=== PATIENT | male | born 1960 | race Caucasian/White ===

== ENCOUNTER → 2017-12-31 | Outpatient (CLI) | payer OTHER ==
--- NOTE | 2017-12-31 11:55 | XR ---
EXAMINATION TYPE: XR shoulder complete BILAT DATE OF EXAM: 12/31/2017 CLINICAL HISTORY: pain COMPARISON: NONE TECHNIQUE: Three views of the left shoulder are obtained. FINDINGS: There is no acute fracture/dislocation evident. The acromioclavicular and glenohumeral maite int spaces appear within normal limits. The visualized ribs are intact and unremarkable. IMPRESSION: 1. There is no acute fracture or dislocation. ICD 10 NO FRACTURE, INITIAL EVALUATION
== END | disposition home or self-care (01) ==
LOC: RADXRMAIN 11:25
PROVIDERS: ATTEND Family Medicine
DX: M25.511 Pain in right shoulder (principal); M25.512 Pain in left shoulder

== ENCOUNTER → 2018-03-23 | Outpatient (CLI) | payer OTHER ==
--- NOTE | 2018-03-23 12:32 | XR ---
EXAMINATION TYPE: XR ankle complete RT DATE OF EXAM: 03/23/2018 COMPARISON: NONE HISTORY: Bruising and pain FINDINGS: Three views of the ankle demonstrate the ankle mortise to be intact and symmetric. The joint spaces are preserved. The osseous structures are intact. Diffuse soft tissue edema. Calcaneal spur noted. IMPRESSION: 1. No definite acute fracture or dislocation, if symptoms persist follow-up study in 7 to 10 days wou ld be suggested. Diffuse soft tissue edema.
== END | disposition home or self-care (01) ==
LOC: RADXRMAIN 11:54
PROVIDERS: ATTEND Family Medicine
DX: M25.571 Pain in right ankle and joints of right foot (principal)

== ENCOUNTER 2018-04-07 14:15 | Emergency (ER) | payer OTHER ==
[2018-04-07 14:35] VITALS: RESP 18
--- NOTE | 2018-04-07 15:00 | ED ---
Extremity Problem HPI - General Chief complaint: Extremity Problem,Nontraumatic Stated complaint: POSS DVT RT FOOT, Hx PE AND DVT Time Seen by Provider: 04/07/18 14:48 Source: patient, RN notes reviewed Mode of arrival: wheelchair Limitations: no limitations - History of Present Illness Initial comments: This is a 58-year-old male with history of DVT syndrome who presents to the emergency department with chief complaint of acute right lower extremity swelling and pain. 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 He states that he is currently taking 20 mg of Xarelto daily. He states that last evening he developed swelling, tenderness and redness to the right foot. Patient states that he is sure that he has a DVT. He denies any chest pain or shortness of breath. Denies any injuries to the right lower extremity. Denies fevers or chills, abdominal pain, nausea or vomiting. - Related Data Home Medications Medication Instructions Recorded Confirmed Omeprazole 40 mg PO AC-BRKFST 09/27/14 04/07/18 Sotalol [Betapace] 80 mg PO BID 09/27/14 04/07/18 metFORMIN HCL [Glucophage] 500 mg PO DAILY 09/27/14 04/07/18 metFORMIN HCL [Glucophage] 1,000 mg PO HS 09/25/16 04/07/18 traMADol HCL [Ultram] 100 mg PO TID 09/25/16 04/07/18 ALPRAZolam [Xanax] 1 mg PO HS 11/10/17 04/07/18 Rivaroxaban [Xarelto] 20 mg PO DAILY 11/10/17 04/07/18 Pregabalin [Lyrica] 150 mg PO BID 04/07/18 04/07/18 Previous Rx's Medication Instructions Recorded Cephalexin [Keflex] 500 mg PO Q12HR #20 cap 04/07/18 Allergies Allergy/AdvReac Type Severity Reaction Status Date / Time bacitracin Allergy Unknown Verified 04/07/18 14:50 [From Neosporin ([id number])] bacitracin zinc Allergy Unknown Verified 04/07/18 14:50 [From Neosporin ([id number])] neomycin sulfate Allergy Unknown Verified 04/07/18 14:50 [From Neosporin ([id number])] polymyxin B Allergy Unknown Verified 04/07/18 14:50 [From Neosporin ([id number])] Review of Systems ROS Statement: Those systems with pertinent positive or pertinent negative responses have been documented in the HPI. ROS Other: All systems not noted in ROS Statement are negative. Past Medical History Past Medical History: Diabetes Mellitus, Deep Vein Thrombosis (DVT), Hyperlipidemia, Hypertension Additional Past Medical History / Comment(s): multiple pulmonary embolisms( 2014 ), pacemaker AICD History of Any Multi-Drug Resistant Organisms: None Reported Past Surgical History: Joint Replacement, Orthopedic Surgery, Pacemaker Additional Past Surgical History / Comment(s): pacemaker(2000),2007, right knee replacement, right ankle surgery Past Anesthesia/Blood Transfusion Reactions: No Reported Reaction Type of Cardiac Device: Permanent Pacemaker, AICD Device Placement Date:: 2000 Past Psychological History: No Psychological Hx Reported Smoking Status: Former smoker Past Alcohol Use History: None Reported Past Drug Use History: None Reported - Past Family History Father Additional Family Medical History / Comment(s): CABG x4 Mother Family Medical History: Cancer Additional Family Medical History / Comment(s): CABG x4, defib pacemaker , blood disorder, General Exam - General Exam Comments Initial Comments: General: Awake and alert, well-developed; in no apparent distress. HEENT: Head atraumatic, normocephalic. Pupils are equal, round and reactive to light. Extraocular movements intact. Oropharynx moist without erythema or exudate. Neck: Supple. Normal ROM. Cardiovascular: Regular rate and rhythm. No murmurs, rubs or gallops. Chest symmetrical. Respiratory: Lungs clear to auscultation bilaterally. No wheezes, rales or rhonchi. Normal respiratory effort with no use of accessory muscles. Musculoskeletal: Normal range of motion of the right lower extremity. There is swelling, erythema and tenderness to the dorsal aspect of the right foot and up into the ankle. No bony point tenderness. Sensation is intact. Pedal pulses are 2+ equal and palpable bilaterally. Mild tenderness on palpation of the right calf. Skin: Joice, warm and dry. Neurological: Alert and oriented x3. CN II-XII grossly intact. Speech is fluent and answers are appropriate. No focal neuro deficits. Psychiatric: Normal mood and affect. No overt signs of depression or anxiety noted. Limitations: no limitations Course Vital Signs 04/07/18 14:32 Temperature 98.2 F Pulse Rate 77 Respiratory 18 Rate Blood Pressure 131/85 O2 Sat by Pulse 98 Oximetry Medical Decision Making - Medical Decision Making This is a 58-year-old male with history of multiple DVTs who presents to the emergency department with chief complaint of right foot swelling, tenderness and redness. Patient states he believes he has a DVT. He rated the takes 20 mg of Xarelto daily. Ultrasound venous Doppler was obtained and revealed no evidence for an acute DVT. X-rays of the right foot and ankle were obtained and reveal no acute abnormalities. On physical examination, there is swelling, erythema, tenderness and warmth to the right foot. Patient will be treated for cellulitis with Keflex. Return parameters were discussed. Patient is to return to the emergency department if any increasing redness, streaking occurs. Vital signs are stable and patient is in no acute distress. He will be discharged home at this time. All questions answered. - Radiology Data Radiology results: report reviewed Ultrasound venous Doppler duplex right lower extremity: Negative for DVT X-ray right foot impression: No acute process. X-ray right ankle impression: There is no acute fracture or dislocation seen. Disposition Clinical Impression: Cellulitis Disposition: HOME SELF-CARE Condition: Good Instructions: Cellulitis (ED) Additional Instructions: Please return to the emergency department if you notice any increase in redness or streaking or if you develop any fevers. Please take medications as prescribed. Please follow up with primary care provider within 1-2 days. Return to emergency department if symptoms should worsen or any concerns arise. Prescriptions: Cephalexin [Keflex] 500 mg PO Q12HR #20 cap Is patient prescribed a controlled substance at d/c from ED?: No Referrals: Slade Arora MD [Primary Care Provider] - 1-2 days Time of Disposition: 17:21
--- NOTE | 2018-04-07 16:16 | US ---
EXAMINATION TYPE: US venous doppler duplex LE RT DATE OF EXAM: 04/07/2018 2:58 PM COMPARISON: US CLINICAL HISTORY: Pain. SIDE PERFORMED: Right TECHNIQUE: The lower extremity deep venous system is examined utilizing real time linear array sonog peg with graded compression, doppler sonography and color-flow sonography. VESSELS IMAGED: External Iliac Vein (EIV) Common Femoral Vein Deep Femoral Vein Greater Saphenous Vein * Femoral Vein Popliteal Vein Small Saphenous Vein * Proximal Calf Veins (* superficial vessels) Grayscale, color doppler, spectral doppler imaging performed of the deep veins of the lower extremity . There is normal flow, compressibility, vascular waveforms. Right Leg: Negative for DVT IMPRESSION: No evidence for DVT.
--- NOTE | 2018-04-07 17:02 | XR ---
EXAMINATION TYPE: XR ankle complete RT DATE OF EXAM: 04/07/2018 COMPARISON: 03/23/2018 HISTORY: Pain TECHNIQUE: Frontal, lateral and oblique images of the right ankle are obtained. COMPARISON: None. FINDINGS: There is no acute fracture/dislocation evident. The joint spaces appear within normal farah its. Lateral soft tissue swelling identified. IMPRESSION: There is no acute fracture or dislocation seen.
--- NOTE | 2018-04-07 17:05 | XR ---
PROCEDURE: XR foot complete RT 3 views DATE AND TIME: 04/07/2018 4:50 PM REFERRING PHYSICIAN: Cinthia Duval CLINICAL INDICATION: PHH, Pain TECHNIQUE: Department protocol. COMPARISON: None FINDINGS: There is no fracture or malalignment. The soft tissues are unremarkable. IMPRESSION: NO ACUTE PROCESS.
[2018-04-07] MEDS ORDERED: CEPHALEXIN 500 MG CAP PO STA (17:19)
[2018-04-07 17:37] VITALS: BP 130/78; PULSE 70; TEMP 98.7
== END 2018-04-07 17:37 | disposition home or self-care (01) ==
LOC: EC 14:15
DX: L03.115 Cellulitis of right lower limb (principal); I10 Essential (primary) hypertension; E11.9 Type 2 diabetes mellitus without complications; Z87.891 Personal history of nicotine dependence; Z79.01 Long term (current) use of anticoagulants; Z79.84 Long term (current) use of oral hypoglycemic drugs; Z79.899 Other long term (current) drug therapy; Z88.1 Allergy status to other antibiotic agents; Z86.718 Personal history of other venous thrombosis and embolism; Z86.711 Personal history of pulmonary embolism; Z96.651 Presence of right artificial knee joint; Z98.890 Other specified postprocedural states
CPT/HCPCS: 99283

== ENCOUNTER → 2020-05-08 | Outpatient (CLI) | payer MEDICARE | END | disposition home or self-care (01) | LOC: LABWHC1 10:45 | PROVIDERS: ATTEND Internal Medicine | DX: R05 Cough (principal); R06.2 Wheezing | CPT/HCPCS: U0003; C9803 ==

== ENCOUNTER 2020-05-17 13:50 | Emergency (ER) | payer MEDICARE ==
[2020-05-17 13:57] VITALS: BP 138/83; PULSE 84; RESP 22; TEMP 98.4
--- NOTE | 2020-05-17 14:14 | ED ---
General Adult HPI - General Chief complaint: Shortness of Breath Stated complaint: cough, shortness of breath, chest pain Time Seen by Provider: 05/17/20 13:58 Source: patient Mode of arrival: ambulatory Limitations: no limitations - History of Present Illness Initial comments: Patient is a 60-year-old male, history of diabetes, hypertension, pacemaker, presenting to emergency Department with complaints of a cough, mild shortness of breath, chest of burning that has been intermittent for the last 3 weeks. Patient states he was tested for Covid last week and that was negative. Patient followed up with his PCP today who recommended going into the ER for a chest x- ray to rule out pneumonia. He states his grandson did come in contact with a household who had a positive Covid case 2 weeks ago. Patient states he has been doing breathing treatments at home which does improve his symptoms. He states he has been coughing up mild phlegm but also has a dry cough at times. He does have a history of PE, he is on eliquis. He denies having fever, chest pains, nausea, vomiting, diarrhea. He states his appetite has been lower the past few days. He has not tried any [id number] medications except for his breathing treatments. He has no further complaints at this time. Upon arrival to the ER, he is afebrile, rest of vitals are normal, 97% on room air. - Related Data Home Medications Medication Instructions Recorded Confirmed Omeprazole 40 mg PO AC-BRKFST 09/27/14 04/07/18 Sotalol [Betapace] 80 mg PO BID 09/27/14 04/07/18 metFORMIN HCL [Glucophage] 500 mg PO DAILY 09/27/14 04/07/18 metFORMIN HCL [Glucophage] 1,000 mg PO HS 09/25/16 04/07/18 traMADol HCL [Ultram] 100 mg PO TID 09/25/16 04/07/18 ALPRAZolam [Xanax] 1 mg PO HS 11/10/17 04/07/18 Rivaroxaban [Xarelto] 20 mg PO DAILY 11/10/17 04/07/18 Pregabalin [Lyrica] 150 mg PO BID 04/07/18 04/07/18 Previous Rx's Medication Instructions Recorded Cephalexin [Keflex] 500 mg PO Q12HR #20 cap 04/07/18 Azithromycin [Zithromax Z-pack] 0 mg PO DIRECTED #1 pack 05/17/20 methylPREDNISolone [Medrol Dose 4 mg PO DIRECTED #1 pack 05/17/20 Pack] Allergies Allergy/AdvReac Type Severity Reaction Status Date / Time bacitracin Allergy Unknown Verified 05/17/20 13:57 [From Neosporin ([id number])] bacitracin zinc Allergy Unknown Verified 05/17/20 13:57 [From Neosporin ([id number])] neomycin sulfate Allergy Unknown Verified 05/17/20 13:57 [From Neosporin ([id number])] polymyxin B Allergy Unknown Verified 05/17/20 13:57 [From Neosporin ([id number])] Review of Systems ROS Statement: Those systems with pertinent positive or pertinent negative responses have been documented in the HPI. ROS Other: All systems not noted in ROS Statement are negative. Past Medical History Past Medical History: Diabetes Mellitus, Deep Vein Thrombosis (DVT), Hyperlipidemia, Hypertension Additional Past Medical History / Comment(s): multiple pulmonary embolisms( 2014), pacemaker AICD History of Any Multi-Drug Resistant Organisms: None Reported Past Surgical History: Joint Replacement, Orthopedic Surgery, Pacemaker Additional Past Surgical History / Comment(s): pacemaker(2000),2007, right knee replacement, right ankle surgery Past Anesthesia/Blood Transfusion Reactions: No Reported Reaction Type of Cardiac Device: Permanent Pacemaker, AICD Device Placement Date:: 2000 Past Psychological History: No Psychological Hx Reported Smoking Status: Former smoker Past Alcohol Use History: None Reported Past Drug Use History: None Reported - Past Family History Father Additional Family Medical History / Comment(s): CABG x4 Mother Family Medical History: Cancer Additional Family Medical History / Comment(s): CABG x4, defib pacemaker , blood disorder, General Exam - General Exam Comments Initial Comments: GENERAL: Patient is well-developed and well-nourished. Patient is nontoxic and in no acute distress. HEAD: Atraumatic, normocephalic. EYES: Pupils equal round and reactive to light, extraocular movements intact, sclera anicteric, conjunctiva are normal. Eyelids were unremarkable. ENT: TMs normal, nares patent, oropharynx clear without exudates. Moist mucous membranes. NECK: Normal range of motion, supple without lymphadenopathy or JVD. LUNGS: Unlabored respirations. Breath sounds clear, mild wheezes present HEART: Regular rate and rhythm without murmurs, rubs or gallops. ABDOMEN: Soft, nontender, normoactive bowel sounds. No guarding, no rebound. No masses appreciated. : Deferred MUSCULOSKELETAL: Normal extremities with adequate strength and normal range of motion, no pitting or edema. No clubbing or cyanosis. NEUROLOGICAL: Cranial nerves II through XII grossly intact. Normal speech, normal gait. PSYCH: Normal mood, normal affect. SKIN: Warm, Dry, normal turgor, no rashes or lesions noted. Limitations: no limitations Course Vital Signs 05/17/20 13:55 Temperature 98.4 F Pulse Rate 84 Respiratory 22 Rate Blood Pressure 138/83 O2 Sat by Pulse 97 Oximetry EKG Findings - EKG Comments: EKG Findings:: Patient does have a pacemaker, normal sinus rhythm, LBBB, ventricular rate 80, MT interval 144, QTC 422. Similar to previous EKG on 11-12-17. Medical Decision Making - Medical Decision Making Patient is 60-year-old male with history of diabetes, hypertension, pacemaker, presenting with a cough intermittent 3 weeks. Vital signs are stable, afebrile. Although documented in nurse's triage patient describing chest tightness, when I asked the patient about this he denies any chest pains but describes it as burning when he is coughing. Exam reveals very mild scattered wheezes, no other acute findings. He did have Covid test last week which was negative. EKG shows no acute changes, chest x-ray shows chronic changes, no acute process. No evidence of pneumonia. I discussed these findings with the patient. Given patient's history, comorbidities, I did recommend a full lab workup including troponin, BNP, possible admission for the chest burning however patient declined this at this time. I will treat the patient for bronchitis with a steroid Dosepak as well as azithromycin. Patient is in agreement with this plan of care. Very strict return parameters were discussed with the patient and he verbalized understanding. He will follow up with his PCP. Case discussed with Dr. Echeverria. Disposition Clinical Impression: Cough, Bronchitis Disposition: HOME SELF-CARE Condition: Stable Instructions (If sedation given, give patient instructions): Acute Bronchitis (ED) Additional Instructions: Please return to the Emergency Department if symptoms worsen or any other concerns. Take both medications as prescribed. Check blood sugar levels as discussed secondary to taking steroids. Follow-up with PCP in 1-3 days. Prescriptions: methylPREDNISolone [Medrol Dose Pack] 4 mg PO DIRECTED #1 pack Azithromycin [Zithromax Z-pack] 0 mg PO DIRECTED #1 pack Is patient prescribed a controlled substance at d/c from ED?: No Referrals: Og Ervin MD [Primary Care Provider] - 1-2 days
--- NOTE | 2020-05-17 14:40 | XR ---
EXAMINATION TYPE: XR chest 2V DATE OF EXAM: 05/17/2020 COMPARISON: Chest x-ray November 11, 2017. HISTORY: Cough for 3 weeks. TECHNIQUE: Frontal and lateral views of the chest are obtained. FINDINGS: Reticular interstitial prominence bilaterally with moderate biapical pleural scarring. Ther e is no suspicious new focal air space opacity, pleural effusion, or pneumothorax seen. The cardiac silhouette size remains within normal limits. Dual lead pacemaker redemonstrated. The osseous struct ures are intact. IMPRESSION: Chronic changes without new suspicious acute pulmonary process.
== END 2020-05-17 15:25 | disposition home or self-care (01) ==
LOC: EC 13:50
DX: J40 Bronchitis, not specified as acute or chronic (principal); I10 Essential (primary) hypertension; E11.9 Type 2 diabetes mellitus without complications; Z79.01 Long term (current) use of anticoagulants; Z79.899 Other long term (current) drug therapy; Z79.84 Long term (current) use of oral hypoglycemic drugs; Z88.1 Allergy status to other antibiotic agents; Z88.8 Allergy status to other drugs, medicaments and biological substances; Z87.891 Personal history of nicotine dependence; Z95.0 Presence of cardiac pacemaker; Z96.651 Presence of right artificial knee joint; Z86.718 Personal history of other venous thrombosis and embolism; Z20.828 Contact with and (suspected) exposure to other viral communicable diseases; Z86.711 Personal history of pulmonary embolism
CPT/HCPCS: 71046; 93005; 99285

== ENCOUNTER 2020-07-22 15:14 | Emergency (ER) | payer MEDICARE ==
[2020-07-22] MEDS ORDERED: PIPERACILLIN-TAZOBACTAM 3.375 GM in SODIUM CHLORIDE 0.9% 100 ML IVPB STA (15:42)
[2020-07-22] MEDS ORDERED: ACETAMINOPHEN TAB 325 MG TAB PO STA (15:43)
[2020-07-22 16:31] LABS: Albumin 4.7 g/dL (3.5-5.0); Calcium 9.7 mg/dL (8.4-10.2); Potassium 4.8 mmol/L (3.5-5.1); Total Bilirubin 1.3 mg/dL (0.2-1.3); Total Protein 8.1 g/dL (6.3-8.2)
[2020-07-22 16:44] LABS: Basophils # (A) 0.1 k/uL (0-0.2); Basophils % (A) 2 %; Eosinophils # (A) 0.1 k/uL (0-0.7); Eosinophils % (A) 2 %; HGB 15.3 gm/dL (13.0-17.5); Lymphocytes % (A) 16 %; MCH 29.6 pg (25.0-35.0); MCHC 33.2 g/dL (31.0-37.0); MCV 89.3 fL (80.0-100.0); Mean Platelet Volume 7.3; Monocytes # (A) 0.9 k/uL (0-1.0); Monocytes % (A) 14 %; Neutrophils # (A) 4.1 k/uL (1.3-7.7); Neutrophils % (A) 63 %; Platelet Count 185 k/uL (150-450); RBC 5.15 m/uL (4.30-5.90); RDW 12.4 % (11.5-15.5); WBC 6.5 k/uL (3.8-10.6)
[2020-07-22 17:29] VITALS: BP 112/78; PULSE 74; RESP 17; TEMP 98.5
--- NOTE | 2020-07-22 18:57 | US ---
EXAMINATION TYPE: US venous doppler duplex LE LT DATE OF EXAM: 07/22/2020 5:55 PM COMPARISON: NONE CLINICAL HISTORY: swelling. cellulitis left leg, patient on blood thinner, history of DVT and PE SIDE PERFORMED: left TECHNIQUE: The lower extremity deep venous system is examined utilizing real time linear array sonog peg with graded compression, doppler sonography and color-flow sonography. VESSELS IMAGED: External Iliac Vein (EIV) Common Femoral Vein Deep Femoral Vein Greater Saphenous Vein * Femoral Vein Popliteal Vein Small Saphenous Vein * Proximal Calf Veins (* superficial vessels) Left Leg: no evidence of DVT IMPRESSION: No sign of deep vein thrombosis in the left leg.
--- NOTE | 2020-07-22 18:59 | ED ---
Skin/Abscess/FB HPI - General Chief complaint: Skin/Abscess/Foreign Body Stated complaint: Infection in left leg Time Seen by Provider: 07/22/20 15:42 Source: patient Mode of arrival: ambulatory Limitations: physical limitation - History of Present Illness Initial comments: 60yo male presenting for cellulitis. patient states he was diagnosed with cellulitis on thursday and prescribed bactrim. he states he had redness and swelling of the left foot. Patietn states it began thursday with itching which is how is always starts he states this has happened nearly every year. Patient denies calf pain or swelling. Denies chest pain SOB. Pt has history of DVT/PE. But states he has been compliant with his xarelto. Patient states that the redness seemed to spread from him left foot to the left anterior knee. he is able to range at the knee and weight bear but the anterior portion is red and tight/itchy. Patient denies known fevers. He has low grade fever on arrival, does not appear toxic and is in no acute distress. Denies known history of MRSA. - Related Data Home Medications Medication Instructions Recorded Confirmed Omeprazole 40 mg PO AC-BRKFST 09/27/14 04/07/18 Sotalol [Betapace] 80 mg PO BID 09/27/14 04/07/18 metFORMIN HCL [Glucophage] 500 mg PO DAILY 09/27/14 04/07/18 metFORMIN HCL [Glucophage] 1,000 mg PO HS 09/25/16 04/07/18 traMADol HCL [Ultram] 100 mg PO TID 09/25/16 04/07/18 ALPRAZolam [Xanax] 1 mg PO HS 11/10/17 04/07/18 Rivaroxaban [Xarelto] 20 mg PO DAILY 11/10/17 04/07/18 Pregabalin [Lyrica] 150 mg PO BID 04/07/18 04/07/18 Previous Rx's Medication Instructions Recorded Cephalexin [Keflex] 500 mg PO Q12HR #20 cap 04/07/18 Azithromycin [Zithromax Z-pack (6 0 mg PO DIRECTED #1 pack 05/17/20 tabs)] methylPREDNISolone [Medrol Dose 4 mg PO DIRECTED #1 pack 05/17/20 Pack] Cephalexin [Keflex] 500 mg PO Q6HR 7 Days #28 cap 07/22/20 Allergies Allergy/AdvReac Type Severity Reaction Status Date / Time bacitracin Allergy Unknown Verified 07/22/20 15:39 [From Neosporin ([id number])] bacitracin zinc Allergy Unknown Verified 07/22/20 15:39 [From Neosporin ([id number])] neomycin sulfate Allergy Unknown Verified 07/22/20 15:39 [From Neosporin ([id number])] polymyxin B Allergy Unknown Verified 07/22/20 15:39 [From Neosporin ([id number])] Review of Systems ROS Statement: Those systems with pertinent positive or pertinent negative responses have been documented in the HPI. ROS Other: All systems not noted in ROS Statement are negative. Past Medical History Past Medical History: Diabetes Mellitus, Deep Vein Thrombosis (DVT), Hyperlipidemia, Hypertension Additional Past Medical History / Comment(s): multiple pulmonary embolisms( 2014), pacemaker AICD History of Any Multi-Drug Resistant Organisms: None Reported Past Surgical History: Joint Replacement, Orthopedic Surgery, Pacemaker Additional Past Surgical History / Comment(s): pacemaker(2000),2007, right knee replacement, right ankle surgery, Past Anesthesia/Blood Transfusion Reactions: No Reported Reaction Type of Cardiac Device: Permanent Pacemaker, AICD Device Placement Date:: 2000 Past Psychological History: No Psychological Hx Reported Smoking Status: Former smoker Past Alcohol Use History: None Reported Past Drug Use History: None Reported - Past Family History Father Additional Family Medical History / Comment(s): CABG x4 Mother Family Medical History: Cancer Additional Family Medical History / Comment(s): CABG x4, defib pacemaker , blood disorder, General Exam - General Exam Comments Initial Comments: General: The patient is awake and alert, in no distress, and does not appear acutely ill. Eye: Pupils are equal, round and reactive to light, extra-ocular movements are intact. No nystagmus. There is normal conjunctiva bilaterally. No signs of icterus. Ears, nose, mouth and throat: There are moist mucous membranes and no oral lesions. Neck: The neck is supple, there is no tenderness or JVD. Cardiovascular: There is a regular rate and rhythm. No murmur, rub or gallop is appreciated. Respiratory: Lungs are clear to auscultation, respirations are non-labored, breath sounds are equal. No wheezes, stridor, rales, or rhonchi. Musculoskeletal: Swelling left foot dorsum. Circular red area with faint xiang rders on the anterior knee, no swelling. pain to touch. Normal ROM, with mild tenderness of the left knee. Can weight bear without difficutly.. Strength 5/5. Sensation intact. DP pulses equal bilaterally 2+. Neurological: A&O x 3. CN II-XII intact, There are no obvious motor or sensory deficits. Coordination appears grossly intact. Speech is normal. Skin: Skin is warm and dry and no rashes or lesions are noted. Psychiatric: Cooperative, appropriate mood & affect, normal judgment. Limitations: physical limitation Course Vital Signs 07/22/20 07/22/20 15:37 17:28 Temperature 100.3 F H 98.5 F Pulse Rate 100 74 Respiratory 18 17 Rate Blood Pressure 141/85 112/78 O2 Sat by Pulse 98 98 Oximetry Medical Decision Making - Medical Decision Making US (-) DVT. WBC WNL. Doesnt appear toxic. Evaluated by attending who recommends discharge with addition of keflex to abx regime and close home monitoring. Patient prefers to go home and trial a new antibiotics vs admission at this time. patient is aware of strict return parameters and was discharged appearing well. - Lab Data Result diagrams: 07/22/20 16:10 07/22/20 16:10 Lab Results 07/22/20 07/22/20 07/22/20 Range/Units 16:10 16:10 16:10 WBC 6.5 (3.8-10.6) k/uL RBC 5.15 (4.30-5.90) m/uL Hgb 15.3 (13.0-17.5) gm/dL Hct 46.0 (39.0-53.0) % MCV 89.3 (80.0-100.0) fL MCH 29.6 (25.0-35.0) pg MCHC 33.2 (31.0-37.0) g/dL RDW 12.4 (11.5-15.5) % Plt Count 185 (150-450) k/uL Neutrophils % 63 % Lymphocytes % 16 % Monocytes % 14 % Eosinophils % 2 % Basophils % 2 % Neutrophils # 4.1 (1.3-7.7) k/uL Lymphocytes # 1.0 (1.0-4.8) k/uL Monocytes # 0.9 (0-1.0) k/uL Eosinophils # 0.1 (0-0.7) k/uL Basophils # 0.1 (0-0.2) k/uL Sodium 133 L (137-145) mmol/L Potassium 4.8 (3.5-5.1) mmol/L Chloride 98 (98-107) mmol/L Carbon Dioxide 25 (22-30) mmol/L Anion Gap 10 mmol/L BUN 11 (9-20) mg/dL Creatinine 1.18 (0.66-1.25) mg/dL Est GFR (CKD-EPI)AfAm 77 (>60 ml/min/1.73 sqM) Est GFR (CKD-EPI)NonAf 66 (>60 ml/min/1.73 sqM) Glucose 141 H (74-99) mg/dL Plasma Lactic Acid Golden 1.1 (0.7-2.0) mmol/L Calcium 9.7 (8.4-10.2) mg/dL Total Bilirubin 1.3 (0.2-1.3) mg/dL AST 27 (17-59) U/L ALT 23 (4-49) U/L Alkaline Phosphatase 83 (38-126) U/L Total Protein 8.1 (6.3-8.2) g/dL Albumin 4.7 (3.5-5.0) g/dL Disposition Clinical Impression: Cellulitis Disposition: HOME SELF-CARE Condition: Good Instructions (If sedation given, give patient instructions): Cellulitis (ED) Additional Instructions: Please use medication as discussed. Please follow-up with family doctor in the next 2 days . . Please return to emergency room if the symptoms increase or worsen or for any other concerns. Prescriptions: Cephalexin [Keflex] 500 mg PO Q6HR 7 Days #28 cap Is patient prescribed a controlled substance at d/c from ED?: No Referrals: Maria Dolores Jaramillo NPC [Primary Care Provider] - 1-2 days Time of Disposition: 18:59
== END 2020-07-22 19:06 | disposition home or self-care (01) ==
LOC: SUPCPDRO 15:14 → EC 15:14
DX: L03.116 Cellulitis of left lower limb (principal); E11.9 Type 2 diabetes mellitus without complications; I26.99 Other pulmonary embolism without acute cor pulmonale; Z79.899 Other long term (current) drug therapy; Z79.84 Long term (current) use of oral hypoglycemic drugs; Z79.891 Long term (current) use of opiate analgesic; Z79.01 Long term (current) use of anticoagulants; Z88.1 Allergy status to other antibiotic agents; Z96.651 Presence of right artificial knee joint; Z87.891 Personal history of nicotine dependence; Z86.718 Personal history of other venous thrombosis and embolism
CPT/HCPCS: 36415; 80053; 83605; 85025; 87040; 93971; 99283; 96365; J2543

== ENCOUNTER 2020-07-23 17:20 | Emergency (ER) | payer MEDICARE ==
[2020-07-23 17:50] VITALS: BP 136/87; PULSE 87; RESP 18; TEMP 98.6
--- NOTE | 2020-07-23 18:35 | ED ---
Recheck HPI - General Chief Complaint: Recheck/Abnormal Lab/Rx Stated Complaint: recheck - cellulitis Time Seen by Provider: 07/23/20 17:58 Source: patient, RN notes reviewed Mode of arrival: ambulatory Limitations: no limitations - History of Present Illness Initial Comments: 60-year-old male present emergency Department for recheck of cellulitis of his left leg. Patient states has greatly improved. Patient states he called for follow-up appointment with his PCP and they're concerned because he states updated that it was still red. They told him that he was recommended to stay in the hospital. He states that is not using the hospitalist that all symptoms are nearly 100% better. Patient denies any fever today. Patient offers no complaints. - Related Data Home Medications Medication Instructions Recorded Confirmed Omeprazole 40 mg PO AC-BRKFST 09/27/14 04/07/18 Sotalol [Betapace] 80 mg PO BID 09/27/14 04/07/18 metFORMIN HCL [Glucophage] 500 mg PO DAILY 09/27/14 04/07/18 metFORMIN HCL [Glucophage] 1,000 mg PO HS 09/25/16 04/07/18 traMADol HCL [Ultram] 100 mg PO TID 09/25/16 04/07/18 ALPRAZolam [Xanax] 1 mg PO HS 11/10/17 04/07/18 Rivaroxaban [Xarelto] 20 mg PO DAILY 11/10/17 04/07/18 Pregabalin [Lyrica] 150 mg PO BID 04/07/18 04/07/18 Previous Rx's Medication Instructions Recorded Cephalexin [Keflex] 500 mg PO Q12HR #20 cap 04/07/18 Azithromycin [Zithromax Z-pack (6 0 mg PO DIRECTED #1 pack 05/17/20 tabs)] methylPREDNISolone [Medrol Dose 4 mg PO DIRECTED #1 pack 05/17/20 Pack] Cephalexin [Keflex] 500 mg PO Q6HR 7 Days #28 cap 07/22/20 Allergies Allergy/AdvReac Type Severity Reaction Status Date / Time bacitracin Allergy Unknown Verified 07/23/20 17:50 [From Neosporin ([id number])] bacitracin zinc Allergy Unknown Verified 07/23/20 17:50 [From Neosporin ([id number])] neomycin sulfate Allergy Unknown Verified 07/23/20 17:50 [From Neosporin ([id number])] polymyxin B Allergy Unknown Verified 07/23/20 17:50 [From Neosporin ([id number])] Review of Systems ROS Statement: Those systems with pertinent positive or pertinent negative responses have been documented in the HPI. ROS Other: All systems not noted in ROS Statement are negative. Past Medical History Past Medical History: Diabetes Mellitus, Deep Vein Thrombosis (DVT), Hyperlipidemia, Hypertension Additional Past Medical History / Comment(s): multiple pulmonary embolisms( 2014), pacemaker AICD History of Any Multi-Drug Resistant Organisms: None Reported Past Surgical History: Joint Replacement, Orthopedic Surgery, Pacemaker Additional Past Surgical History / Comment(s): pacemaker(2000),2007, right knee replacement, right ankle surgery, Past Anesthesia/Blood Transfusion Reactions: No Reported Reaction Type of Cardiac Device: Permanent Pacemaker, AICD Device Placement Date:: 2000 Past Psychological History: No Psychological Hx Reported Smoking Status: Former smoker Past Alcohol Use History: None Reported Past Drug Use History: None Reported - Past Family History Father Additional Family Medical History / Comment(s): CABG x4 Mother Family Medical History: Cancer Additional Family Medical History / Comment(s): CABG x4, defib pacemaker , blood disorder, General Exam Limitations: no limitations General appearance: alert, in no apparent distress Head exam: Present: atraumatic, normocephalic, normal inspection Respiratory exam: Present: normal lung sounds bilaterally. Absent: respiratory distress, wheezes, rales, rhonchi, stridor Cardiovascular Exam: Present: regular rate, normal rhythm, normal heart sounds. Absent: systolic murmur, diastolic murmur, rubs, gallop, clicks Extremities exam: Present: other (Left lower extremity there is minimal erythema to the foot, pulses equal bilaterally. Full range of motion full-strength) Course Vital Signs 07/23/20 17:46 Temperature 98.6 F Pulse Rate 87 Respiratory 18 Rate Blood Pressure 136/87 O2 Sat by Pulse 97 Oximetry Medical Decision Making - Medical Decision Making I did review records from yesterday, labs unremarkable. Patient was provided antibiotics and symptoms are improving. I did discuss the case with his practitioner Maria Dolores Jaramillo, patient may follow-up at his scheduled appointment . Return parameters were discussed. Disposition Clinical Impression: Cellulitis Disposition: HOME SELF-CARE Condition: Stable Instructions (If sedation given, give patient instructions): Cellulitis (ED) Additional Instructions: Please return to the Emergency Department if symptoms worsen or any other concerns. Is patient prescribed a controlled substance at d/c from ED?: No Referrals: None,Stated [Primary Care Provider] - 1-2 days Time of Disposition: 18:35
== END 2020-07-23 18:54 | disposition home or self-care (01) ==
LOC: EC 17:20
DX: L03.116 Cellulitis of left lower limb (principal); E11.9 Type 2 diabetes mellitus without complications; I26.99 Other pulmonary embolism without acute cor pulmonale; Z79.01 Long term (current) use of anticoagulants; Z79.84 Long term (current) use of oral hypoglycemic drugs; Z79.899 Other long term (current) drug therapy; Z88.1 Allergy status to other antibiotic agents; Z87.891 Personal history of nicotine dependence; Z86.718 Personal history of other venous thrombosis and embolism; Z96.651 Presence of right artificial knee joint
CPT/HCPCS: 99282

== ENCOUNTER → 2021-03-21 | Outpatient (CLI) | payer MEDICARE ==
--- NOTE | 2021-03-21 10:20 | XR ---
EXAMINATION TYPE: XR chest 2V DATE OF EXAM: 03/21/2021 COMPARISON: 05/17/2020 INDICATION: Chest pain TECHNIQUE: Single frontal view of the chest is obtained. FINDINGS: The heart size is normal. The pulmonary vasculature is normal. The lungs are clear. Electronic device overlies left chest. IMPRESSION: 1. No acute pulmonary process.
[2021-03-21 11:10] LABS: Basophils % (A) 0 %; Eosinophils # (A) 0.3 k/uL (0-0.7); Eosinophils % (A) 3 %; HCT 40.2 % (39.0-53.0); HGB 13.6 gm/dL (13.0-17.5); Lymphocytes # (A) 2.3 k/uL (1.0-4.8); Lymphocytes % (A) 28 %; MCHC 33.9 g/dL (31.0-37.0); MCV 91.4 fL (80.0-100.0); Mean Platelet Volume 7.3; Monocytes # (A) 0.5 k/uL (0-1.0); Monocytes % (A) 6 %; Neutrophils # (A) 4.9 k/uL (1.3-7.7); Neutrophils % (A) 60 %; Platelet Count 182 k/uL (150-450); RDW 13.4 % (11.5-15.5); WBC 8.2 k/uL (3.8-10.6)
[2021-03-21 13:44] LABS: Erythrocyte Sedimentation Rate 6 mm/hr (0-15)
[2021-03-21 18:33] LABS: Chol/HDL Ratio 3.34; Cholesterol 127 mg/dL (0-200); LDL Cholesterol,Calculated 66.8 mg/dL (0.0-131.0)
[2021-03-21 18:40] LABS: Prostate Specific Antigen 1.5 ng/mL (0.0-4.5)
[2021-03-22 07:29] LABS: Glucose 112; Sodium 138
[2021-03-22 07:30] LABS: Anion Gap 9.3; Carbon Dioxide 23.7; Chloride 105; Potassium 4.2
[2021-03-22 07:32] LABS: AST 25; Total Bilirubin 0.6; Total Protein 6.6
[2021-03-22 07:33] LABS: ALT 27; Alkaline Phosphatase 80; Non-African American GFR(CKD) >90
[2021-03-22 07:34] LABS: African American GFR (CKD) >90
== END | disposition home or self-care (01) ==
LOC: RADXRMAIN 09:22
PROVIDERS: ATTEND Family Medicine
DX: R07.9 Chest pain, unspecified (principal)
CPT/HCPCS: 71046; 80053; 80061; 84153; 84443; 85025; 85652

== ENCOUNTER → 2021-04-02 | Outpatient (CLI) | payer MEDICARE ==
[2021-04-02 07:28] LABS: African American GFR (CKD) >90 (>60 ml/min/1.73 sqM); Blood Urea Nitrogen 10 mg/dL (9-20); Non-African American GFR(CKD) >90 (>60 ml/min/1.73 sqM)
--- NOTE | 2021-04-02 08:15 | CT ---
EXAMINATION TYPE: CT chest w con DATE OF EXAM: 04/02/2021 COMPARISON: None HISTORY: Chest pains, a fib CT DLP: 335.6 mGycm Automated exposure control for dose reduction was used. CONTRAST: CT scan of the chest is performed with IV Contrast, patient injected with 100 mL of Isovue 300. FINDINGS: LUNGS: Upper lobe emphysematous changes noted. The lungs are grossly clear, there is no concerning pa renchymal mass or nodule identified. There is no pleural effusion or pneumothorax seen. The trache obronchial tree is patent. MEDIASTINUM: There are no greater than 1 cm hilar or mediastinal lymph nodes. No pericardial effusi on is seen. Thoracic aorta is of normal caliber. The heart is not enlarged. UPPER ABDOMEN: Nonspecific left adrenal nodule measures 2 cm and could reflect adenoma. OTHER: No additional significant abnormality is seen. IMPRESSION: 1. Upper lobe emphysematous changes. 2. Nonspecific left adrenal nodule.
== END | disposition home or self-care (01) ==
LOC: RADCTMAIN 06:51
PROVIDERS: ATTEND Family Medicine
DX: J43.9 Emphysema, unspecified (principal); I48.91 Unspecified atrial fibrillation
CPT/HCPCS: 82565; 84520; 71260; 36415; Q9967

== ENCOUNTER → 2021-04-30 | Outpatient (CLI) | payer MEDICARE ==
[2021-04-30 15:02] LABS: Basophils # (A) 0.05 X 10*3/uL (0.00-0.10); Basophils % (A) 0.5 %; Eosinophils # (A) 0.15 X 10*3/uL (0.04-0.35); Eosinophils % (A) 1.4 %; HCT 40.5 % (39.6-50.0); HGB 13.6 g/dL (13.0-17.0); Lymphocytes # (A) 3.33 X 10*3/uL (0.90-5.00); MCH 31.1 pg (27.0-32.0); MCHC 33.6 g/dL (32.0-37.0); MCV 92.7 fL (80.0-97.0); Mean Platelet Volume 10.4 fL (9.5-12.2); Monocytes % (A) 8.6 %; Neutrophils # (A) 5.94 X 10*3/uL (1.80-7.70); Neutrophils % (A) 57.1 %; Platelet Count 193 X 10*3/uL (140-440); RBC 4.37 X 10*6/uL (4.40-5.60); RDW 13.3 % (11.5-14.5); WBC 10.41 X 10*3/uL (4.50-10.00)
[2021-04-30 16:15] LABS: Appearance,Urine Clear (Clear); Bilirubin,Urine Negative (Negative); Blood,Urine Negative (Negative); Color,Urine Yellow; Glucose,Urine (UA) Negative (Negative); Ketones,Urine Negative (Negative); Leukocyte Esterase,Urine Negative (Negative); Nitrite,Urine Negative (Negative); Protein,Urine Negative (Negative); Specific Gravity,Urine 1.015 (1.001-1.035); Urobilinogen,Urine <2.0 mg/dL (<2.0)
[2021-04-30 19:44] LABS: Albumin 4.1 g/dL (3.80-4.90); Albumin/Globulin Ratio 2.05 (1.60-3.17); Anion Gap 6.1 mmol/L (4.00-12.00); BUN/Creat Ratio 17.5 Ratio (12.00-20.00); Calcium 9.2 mg/dL (8.7-10.3); Carbon Dioxide 26.9 mmol/L (21.6-31.8); Chol/HDL Ratio 2.9; LDL Cholesterol,Calculated 53.4 mg/dL (0.0-131.0); Non-African American GFR(CKD) 95.7 (60.0-200.0); Potassium 4.5 mmol/L (3.5-5.5); Total Bilirubin 0.5 mg/dL (0.3-1.2); Total Protein 6.1 g/dL (6.2-8.2); VLDL Calculation 22.6 mg/dL (5.00-40.00)
[2021-04-30 19:53] LABS: Prostate Specific Antigen 0.8 ng/mL (0.0-4.5)
[2021-05-01 16:47] LABS: Microalbumin Creatinine Ratio <30 mg/g Creat (0-30); Urine Creatinine 86.6 mg/dL
== END | disposition home or self-care (01) ==
LOC: LABWHC1 09:16
PROVIDERS: ATTEND Family Medicine
DX: E11.9 Type 2 diabetes mellitus without complications (principal); N39.0 Urinary tract infection, site not specified; R97.20 Elevated prostate specific antigen [PSA]
CPT/HCPCS: 36415; 80053; 80061; 81003; 82043; 82570; 84153; 85025

== ENCOUNTER → 2021-05-01 | Outpatient (CLI) | payer MEDICARE ==
--- NOTE | 2021-05-02 07:47 | CT ---
EXAMINATION TYPE: CT abdomen pelvis wo con DATE OF EXAM: 05/01/2021 COMPARISON: None HISTORY: Abdominal/pelvic pain, hx LT adrenal node CT DLP: 406.80 mGycm Examination of the solid and hollow viscera is limited given the lack of contrast. FINDINGS: LUNG BASES: No evidence for nodule. No evidence for infiltrate. LIVER/GB: Small gallstone identified at the neck of the gallbladder. No space-occupying hepatic lesio n. PANCREAS: No pancreatic mass identified. No inflammatory process seen. SPLEEN: No evidence for splenomegaly. No intrasplenic lesions seen. ADRENALS: Left adrenal nodule which contains internal fat measures 2.3 cm and likely reflects an manpreet idalmis. Right adrenal gland is unremarkable. No evidence for thickening. KIDNEYS: No evidence for renal mass. No nephrolithiasis. No hydronephrosis. BOWEL: Appendix has a normal appearance. No evidence of bowel obstruction. No inflammatory process. Lymph nodes: No evidence for adenopathy greater than 1 cm. Abdominal aorta: Atheromatous changes seen. No evidence for aneurysm. Genital organs: No significant abnormality. Other: Multilevel degenerative disc disease and bar spine with spondylosis. IMPRESSION: 1.Left adrenal nodule which contains internal fat measures 2.3 cm and likely reflects an adenoma. 2.Small gallstone identified at the neck of the gallbladder.
== END | disposition home or self-care (01) ==
LOC: RADCTMAIN 17:20
PROVIDERS: ATTEND Family Medicine
DX: K80.20 Calculus of gallbladder without cholecystitis without obstruction (principal); E27.8 Other specified disorders of adrenal gland
CPT/HCPCS: 74176

== ENCOUNTER 2021-06-04 06:31 | Day surgery (SDC) | payer MEDICARE ==
[2021-06-04] MEDS ORDERED: SODIUM CHLORIDE 0.9% 1,000 ML IV SCH ×2 (06:46→08:30)
[2021-06-04 07:02] VITALS: RESP 18; TEMP 98.1
[2021-06-04 07:04] LABS: Glucose,Whole Blood 85 mg/dL (75-99)
[2021-06-04] MEDS ORDERED: IOPAMIDOL-370 50ML BTL INJ ONE (07:26)
--- NOTE | 2021-06-04 08:22 | P.PCN ---
Date of Procedure: 06/04/21 Preoperative Diagnosis: Pacemaker lead malfunction with muscle stimulation and increasing impedance with the noise on the atrial lead. Suspect the lead fracture Postoperative Diagnosis: No obvious fracture noted on fluoroscopy. Patent axillary and subclavian veins Procedure(s) Performed: Fluoroscopy study of the leads and axillary and subclavian venography Description of Procedure: Patient was brought to the lab in a fasting state. He was prepped and draped in the usual fashion. IV started in the left arm. Venography was performed with 10 mL of contrast. Fluoroscopy views of these was obtained in different angles. Patient tolerated the procedure well. Final impression: #1. Patent axillary and subclavian vein. #2. No obvious fractures noted on the leads under fluoroscopy
[2021-06-04 08:32] VITALS: PULSE 64
[2021-06-04 08:33] VITALS: BP 110/70
== END 2021-06-04 08:37 | disposition home or self-care (01) ==
LOC: CATHEP 06:31
PROVIDERS: ATTEND Internal Medicine Cardiovascular Disease
DX: T82.110A Breakdown (mechanical) of cardiac electrode, initial encounter (principal)
CPT/HCPCS: 36005; 75820; Q9967

== ENCOUNTER 2021-07-10 20:29 | Observation (INO) | payer MEDICARE ==
[2021-07-10 21:07] LABS: Basophils # (A) 0.1 k/uL (0-0.2); Basophils % (A) 1 %; Eosinophils # (A) 0.2 k/uL (0-0.7); Eosinophils % (A) 2 %; HCT 39.2 % (39.0-53.0); HGB 13.1 gm/dL (13.0-17.5); Lymphocytes # (A) 2.8 k/uL (1.0-4.8); Lymphocytes % (A) 33 %; MCHC 33.5 g/dL (31.0-37.0); MCV 92.6 fL (80.0-100.0); Mean Platelet Volume 7.6; Monocytes # (A) 0.5 k/uL (0-1.0); Monocytes % (A) 6 %; Neutrophils # (A) 4.5 k/uL (1.3-7.7); Neutrophils % (A) 54 %; Platelet Count 170 k/uL (150-450); RBC 4.24 m/uL (4.30-5.90); RDW 12.1 % (11.5-15.5); WBC 8.4 k/uL (3.8-10.6)
--- NOTE | 2021-07-10 21:14 | CT ---
EXAMINATION TYPE: CT brain bridgett amor DATE OF EXAM: 07/10/2021 COMPARISON: None HISTORY: Seizure, AMS, on anticoagulation, bleeding from back of head CT DLP: 1531.1 mGycm Automated exposure control for dose reduction was used. Ventricles have normal size. There is no mass effect nor midline shift. There is no sign of intracran ial hemorrhage. Calvarium is intact. Skull base is intact. There is normal aeration of the mastoid si nuses. There is mucosal thickening left maxillary sinus. The cervical vertebra have normal alignment. There is degenerative disc space narrowing at levels fro m C4 to C7 with spurring of the endplates. There is hypertrophic mild cervical facet arthropathy. The re is no compression fracture. Prevertebral soft tissues are intact. IMPRESSION: Spondylotic multilevel changes in the cervical spine. No fracture. Negative CT scan of the brain. Emphysema noted at the lung apices with pulmonary fibrotic changes.
[2021-07-10 21:15] LABS: ALT 17 U/L (4-49); AST 23 U/L (17-59); African American GFR (CKD) >90 (>60 ml/min/1.73 sqM); Albumin 3.6 g/dL (3.5-5.0); Alcohol <10 mg/dL; Alkaline Phosphatase 57 U/L (38-126); Anion Gap 9 mmol/L; Blood Urea Nitrogen 8 mg/dL (9-20); Calcium 9.2 mg/dL (8.4-10.2); Carbon Dioxide 22 mmol/L (22-30); Chloride 105 mmol/L (98-107); Creatine Kinase 161 U/L (55-170); Glucose 141 mg/dL (74-99); Magnesium 1.5 mg/dL (1.6-2.3); Non-African American GFR(CKD) >90 (>60 ml/min/1.73 sqM); Potassium 3.7 mmol/L (3.5-5.1); Sodium 136 mmol/L (137-145); Total Bilirubin 0.8 mg/dL (0.2-1.3); Total Protein 6.1 g/dL (6.3-8.2)
[2021-07-10 21:17] LABS: Partial Thromboplastin Time 22.8 sec (22.0-30.0); Prothrombin Time 11.1 sec (9.0-12.0)
[2021-07-10] MEDS ORDERED: HYDROmorphone 1 MG/ML 1 ML SYRINGE IVP STA (22:03)
[2021-07-10] MEDS ORDERED: ONDANSETRON 4 MG/2 ML VIAL IVP STA (22:03)
[2021-07-10] MEDS ORDERED: levETIRAcetam IV 500 MG in SODIUM CHLORIDE 0.9% 100 ML IVPB STA (22:30)
[2021-07-10] MEDS ORDERED: ACETAMINOPHEN TAB 325 MG TAB PO PRN (22:38)
[2021-07-10] MEDS ORDERED: NALOXONE 0.4 MG/ML 1 ML VIAL IV PRN (22:38)
--- NOTE | 2021-07-10 22:38 | ED ---
Seizure HPI - General Chief Complaint: Seizure Stated Complaint: fa seizure Time Seen by Provider: 07/10/21 20:30 Source: patient, EMS Mode of arrival: EMS - History of Present Illness Initial Comments: 61-year-old male past medical history of A. fib on Eliquis, diabetes, PE who presents emergency department after he had a new onset seizure. The patient was shopping at [employer] when bystanders witnessed him have a seizure. They report that he was walking, stiffened up and felt straight back onto his head. Seizure was tonic-clonic and lasted for approximately 5 minutes. EMS was called and upon their arrival seizure activity had stopped. He was postictal. There was a scalp laceration noted. He does have a history of A. fib and PE on Eliquis. HE was combative however improved on the way into the hospital. He denies previous seizure history. No alcohol use or withdrawal. States that previous to the event he felt confused inside of the store and was having difficulty tracking with his eyes. Patient complains of a headache without visual changes. Denies any neck pain however arrives in a c-collar. Denies chest pain or shortness of breath. Patient does have a pacemaker and ICD - [employer]. No abdominal pain. No other alleviating, precipitating or modifying factors - Related Data Home Medications Medication Instructions Recorded Confirmed Omeprazole 40 mg PO DAILY 09/27/14 07/10/21 Sotalol [Betapace] 80 mg PO BID 09/27/14 07/10/21 traMADol HCL [Ultram] 100 mg PO QID PRN 09/25/16 07/10/21 ALPRAZolam [Xanax] 1 mg PO HS 11/10/17 07/10/21 Apixaban [Eliquis] 5 mg PO BID 05/30/21 07/10/21 Atorvastatin [Lipitor] 40 mg PO HS 05/30/21 07/10/21 Dulaglutide [Trulicity] 0.75 mg SQ MARTINEZ 05/30/21 07/10/21 lisinopriL 10 mg PO DAILY 05/30/21 07/10/21 Umeclidinium [place] [Incruse 1 puff INHALATION RT-DAILY 07/10/21 07/10/21 Ellipta] Allergies Allergy/AdvReac Type Severity Reaction Status Date / Time bacitracin Allergy Unknown Verified 07/10/21 22:56 [From Neosporin ([id number])] bacitracin zinc Allergy Unknown Verified 07/10/21 22:56 [From Neosporin ([id number])] neomycin sulfate Allergy Unknown Verified 07/10/21 22:56 [From Neosporin ([id number])] polymyxin B Allergy Unknown Verified 07/10/21 22:56 [From Neosporin ([id number])] Review of Systems ROS Statement: Those systems with pertinent positive or pertinent negative responses have been documented in the HPI. ROS Other: All systems not noted in ROS Statement are negative. Past Medical History Past Medical History: Atrial Fibrillation, COPD, Diabetes Mellitus, Deep Vein Thrombosis (DVT), GERD/Reflux, Hyperlipidemia, Hypertension, Pulmonary Embolus (PE) Additional Past Medical History / Comment(s): Hx gibson's esophagus. Hx Cellulitis in compa feet. Multiple pulmonary embolisms (2014), pacemaker dependent. Emphysema. History of Any Multi-Drug Resistant Organisms: None Reported Past Surgical History: Cardiac Ablation, Joint Replacement, Orthopedic Surgery, Pacemaker Additional Past Surgical History / Comment(s): pacemaker(2000), 2006; pacemaker battery replaced 2017. Rt knee replacement, right ankle surgery, colonoscopy, EGD. Fluoroscopy leads 06/04/21 Past Anesthesia/Blood Transfusion Reactions: No Reported Reaction Type of Cardiac Device: Permanent Pacemaker Device Placement Date:: 2000 Past Psychological History: No Psychological Hx Reported Smoking Status: Former smoker - Past Family History Father Additional Family Medical History / Comment(s): CABG x4 Mother Family Medical History: Cancer Additional Family Medical History / Comment(s): CABG x4, defib pacemaker , blood disorder, General Exam General appearance: alert, other (confused) Head exam: Present: normocephalic, other (large stellate laceration posterior scalp - 12.0 x 8.0 cm) Eye exam: Present: normal appearance, PERRL, EOMI. Absent: scleral icterus, conjunctival injection, periorbital swelling ENT exam: Present: normal exam, mucous membranes moist Neck exam: Present: normal inspection. Absent: tenderness, meningismus, lymphadenopathy Respiratory exam: Present: normal lung sounds bilaterally. Absent: respiratory distress, wheezes, rales, rhonchi, stridor Cardiovascular Exam: Present: normal rhythm, tachycardia, normal heart sounds. Absent: systolic murmur, diastolic murmur, rubs, gallop, clicks GI/Abdominal exam: Present: soft, normal bowel sounds. Absent: distended, tenderness, guarding, rebound, rigid Extremities exam: Present: normal inspection, full ROM, normal capillary refill. Absent: tenderness, pedal edema, joint swelling, calf tenderness Back exam: Present: normal inspection Neurological exam: Present: alert, oriented X3, CN II-XII intact Psychiatric exam: Present: normal affect, normal mood Skin exam: Present: warm, dry, intact, normal color. Absent: rash Course Vital Signs 07/10/21 07/10/21 07/10/21 20:30 20:38 21:01 Temperature 97.6 F Pulse Rate 109 H 92 91 Pulse Rate [ Left Pulse Oximetery] Respiratory 20 20 20 Rate Blood Pressure 145/81 132/83 130/78 Blood Pressure [Left Arm] O2 Sat by Pulse 97 98 97 Oximetry 07/10/21 07/10/21 07/10/21 22:00 22:30 23:03 Temperature Pulse Rate 67 72 72 Pulse Rate [ Left Pulse Oximetery] Respiratory 22 20 20 Rate Blood Pressure 139/96 137/82 125/75 Blood Pressure [Left Arm] O2 Sat by Pulse 97 97 98 Oximetry 07/11/21 07/11/21 07/11/21 00:00 02:51 04:13 Temperature 97.9 F Pulse Rate 69 74 71 Pulse Rate [ Left Pulse Oximetery] Respiratory 20 20 18 Rate Blood Pressure 143/86 109/70 111/70 Blood Pressure [Left Arm] O2 Sat by Pulse 98 100 99 Oximetry 07/11/21 07/11/21 07/11/21 09:06 10:38 10:45 Temperature Pulse Rate 84 81 Pulse Rate [ 99 Left Pulse Oximetery] Respiratory 16 16 16 Rate Blood Pressure Blood Pressure 103/61 [Left Arm] O2 Sat by Pulse 92 L Oximetry 07/11/21 07/11/21 07/11/21 12:29 15:43 15:50 Temperature 98.3 F Pulse Rate 99 100 Pulse Rate [ 75 Left Pulse Oximetery] Respiratory 16 Rate Blood Pressure Blood Pressure 109/66 [Left Arm] O2 Sat by Pulse 96 Oximetry Procedures - Laceration Laceration #1 Consent Obtained: verbal consent Indication: laceration Site: scalp Size (cm): 12 Description: stellate Depth: simple, single layer Pre-repair: wound explored, irrigated extensively Number of Sutures: 6 (magnolia) Patient Tolerated Procedure: well Additional Comments: cental portion of wound left open due to crush injury of the central tissue Medical Decision Making - Medical Decision Making Upon arrival patient is placed in a trauma bay 4. A thorough history and physical exam is performed. Patient does arrive confused. States he does not remember driving to [employer] or being in the store. IV is established. Patient is immediately sent over for CT of his brain which failed to demonstrate any acute intracranial process. He is return to the trauma bay. IV is established and laboratory studies are conducted. Patient's laceration is partially closed using 6 magnolia however due to the raggedness of the skin edges the central portion of the laceration is unable to be repaired. Patient is given 1 mg of Dilaudid for pain 4 milligrams of Zofran for nausea. Laboratory studies. Lactic acid elevated at 2.8. Patient's c-collar is removed. I did recommend admission for neurology consultation for new onset seizure for which he did agree to. I did interrogate the patient's pacemaker. He does begin to become more clear on the events of the evening. 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 I spoke with Dr. Arora who agreed to admit the patient. Dr. Jarvis placed on consult. Currently awaiting the interrogation of the patient's device. He does have some vertiginous symptoms and does is given a dose of meclizine. I also started the patient on 500 mg Keppra. He remained in stable condition awaiting a bed - Lab Data Result diagrams: 07/11/21 05:31 07/11/21 05:31 Lab Results 07/10/21 07/10/21 07/10/21 Range/Units 20:52 20:52 20:52 WBC 8.4 (3.8-10.6) k/uL RBC 4.24 L (4.30-5.90) m/uL Hgb 13.1 (13.0-17.5) gm/dL Hct 39.2 (39.0-53.0) % MCV 92.6 (80.0-100.0) fL MCH 31.0 (25.0-35.0) pg MCHC 33.5 (31.0-37.0) g/dL RDW 12.1 (11.5-15.5) % Plt Count 170 (150-450) k/uL MPV 7.6 Neutrophils % 54 % Lymphocytes % 33 % Monocytes % 6 % Eosinophils % 2 % Basophils % 1 % Neutrophils # 4.5 (1.3-7.7) k/uL Lymphocytes # 2.8 (1.0-4.8) k/uL Monocytes # 0.5 (0-1.0) k/uL Eosinophils # 0.2 (0-0.7) k/uL Basophils # 0.1 (0-0.2) k/uL PT (9.0-12.0) sec INR (<1.2) APTT (22.0-30.0) sec Sodium 136 L (137-145) mmol/L Potassium 3.7 (3.5-5.1) mmol/L Chloride 105 (98-107) mmol/L Carbon Dioxide 22 (22-30) mmol/L Anion Gap 9 mmol/L BUN 8 L (9-20) mg/dL Creatinine 0.83 (0.66-1.25) mg/dL Est GFR (CKD-EPI)AfAm >90 (>60 ml/min/1.73 sqM) Est GFR (CKD-EPI)NonAf >90 (>60 ml/min/1.73 sqM) Glucose 141 H (74-99) mg/dL Lactic Ac Sepsis Rflx Plasma Lactic Acid Golden 2.8 H* (0.7-2.0) mmol/L Calcium 9.2 (8.4-10.2) mg/dL Magnesium 1.5 L (1.6-2.3) mg/dL Total Bilirubin 0.8 (0.2-1.3) mg/dL AST 23 (17-59) U/L ALT 17 (4-49) U/L Alkaline Phosphatase 57 (38-126) U/L Creatine Kinase 161 (55-170) U/L Troponin I (0.000-0.034) ng/mL Total Protein 6.1 L (6.3-8.2) g/dL Albumin 3.6 (3.5-5.0) g/dL Serum Alcohol <10 mg/dL 07/10/21 07/10/21 07/10/21 Range/Units 20:52 20:52 21:32 WBC (3.8-10.6) k/uL RBC (4.30-5.90) m/uL Hgb (13.0-17.5) gm/dL Hct (39.0-53.0) % MCV (80.0-100.0) fL MCH (25.0-35.0) pg MCHC (31.0-37.0) g/dL RDW (11.5-15.5) % Plt Count (150-450) k/uL MPV Neutrophils % % Lymphocytes % % Monocytes % % Eosinophils % % Basophils % % Neutrophils # (1.3-7.7) k/uL Lymphocytes # (1.0-4.8) k/uL Monocytes # (0-1.0) k/uL Eosinophils # (0-0.7) k/uL Basophils # (0-0.2) k/uL PT 11.1 (9.0-12.0) sec INR 1.0 (<1.2) APTT 22.8 (22.0-30.0) sec Sodium (137-145) mmol/L Potassium (3.5-5.1) mmol/L Chloride (98-107) mmol/L Carbon Dioxide (22-30) mmol/L Anion Gap mmol/L BUN (9-20) mg/dL Creatinine (0.66-1.25) mg/dL Est GFR (CKD-EPI)AfAm (>60 ml/min/1.73 sqM) Est GFR (CKD-EPI)NonAf (>60 ml/min/1.73 sqM) Glucose (74-99) mg/dL Lactic Ac Sepsis Rflx Y Plasma Lactic Acid Golden (0.7-2.0) mmol/L Calcium (8.4-10.2) mg/dL Magnesium (1.6-2.3) mg/dL Total Bilirubin (0.2-1.3) mg/dL AST (17-59) U/L ALT (4-49) U/L Alkaline Phosphatase (38-126) U/L Creatine Kinase (55-170) U/L Troponin I <0.012 (0.000-0.034) ng/mL Total Protein (6.3-8.2) g/dL Albumin (3.5-5.0) g/dL Serum Alcohol mg/dL - EKG Data EKG Comments: EKG demonstrates a ventricularly paced rhythm with a rate of 105. QRS 176. QTC of 584. No acute ST segment elevations or depressions. Pacemaker captures appropriately. Disposition Clinical Impression: New onset seizure, Scalp laceration, Concussion, Lactic acidosis Disposition: ADMITTED IP TO THIS HOSP Condition: Stable Is patient prescribed a controlled substance at d/c from ED?: No Decision to Admit Reason: Admit from EC Decision Date: 07/10/21 Decision Time: 22:38
[2021-07-10] MEDS ORDERED: MECLIZINE 12.5 MG TAB PO STA (23:35)
[2021-07-11] MEDS: HYDROmorphone 1 MG/ML 1 ML SYRINGE IVP PRN ×5 (00:13→19:18)
[2021-07-11] MEDS ORDERED: traMADol 50 MG TAB PO PRN (00:30)
[2021-07-11] MEDS ORDERED: MAGNESIUM SULFATE-D5W PMX 1 GM in DEXTROSE/WATER 1 100ML.BAG IVPB ONE (00:33)
[2021-07-11] MEDS: ONDANSETRON 4 MG/2 ML VIAL IVP PRN ×2 (04:12→12:28)
[2021-07-11 06:17] LABS: Basophils % (A) 0 %; Eosinophils % (A) 0 %; HCT 36.5 % (39.0-53.0); HGB 12.7 gm/dL (13.0-17.5); Lymphocytes # (A) 1.6 k/uL (1.0-4.8); Lymphocytes % (A) 16 %; MCH 31.6 pg (25.0-35.0); MCHC 34.9 g/dL (31.0-37.0); MCV 90.6 fL (80.0-100.0); Mean Platelet Volume 7.5; Monocytes # (A) 0.6 k/uL (0-1.0); Monocytes % (A) 6 %; Neutrophils # (A) 7.1 k/uL (1.3-7.7); Neutrophils % (A) 74 %; Platelet Count 157 k/uL (150-450); RBC 4.03 m/uL (4.30-5.90); RDW 12.7 % (11.5-15.5); WBC 9.5 k/uL (3.8-10.6)
[2021-07-11 08:08] LABS: African American GFR (CKD) >90 (>60 ml/min/1.73 sqM); Anion Gap 8 mmol/L; Blood Urea Nitrogen 9 mg/dL (9-20); Calcium 9.3 mg/dL (8.4-10.2); Carbon Dioxide 25 mmol/L (22-30); Chloride 104 mmol/L (98-107); Glucose 130 mg/dL (74-99); Non-African American GFR(CKD) >90 (>60 ml/min/1.73 sqM); Potassium 4.3 mmol/L (3.5-5.1); Sodium 137 mmol/L (137-145)
[2021-07-11] MEDS: APIXABAN 5 MG TAB PO SCH ×2 (08:52→21:31)
[2021-07-11] MEDS: PANTOPRAZOLE 40 MG TABLET PO SCH (08:52)
[2021-07-11] MEDS: IPRATROPIUM 0.5 MG/2.5 ML NEBU INHALATION SCH ×4 (10:20→20:25)
--- NOTE | 2021-07-11 10:55 | P.CNNES ---
History of Present Illness Consult date: 07/11/21 Requesting physician: Althea Hdez Reason for Consult: new onset seizure History of Present Illness: This is a 61-year-old gentleman with history of atrial fibrillation on Eliquis, pacemaker, diabetes mellitus presented emergency department on 07/10/2021 for new onset seizure. Some of the patient's history is obtained from the medical record. The patient was shopping at [facility] when bystanders witnessed him to have a seizure. He was walk-in then he stiffened and fell straight back onto his head Patient was noted to have tonic-clonic seizure last approximate 5 minutes. EMS was contacted as a result and upon arrival the seizures resolved then was post-ictal. Patient stated that prior to episode while he was in [facility], he had a hard time focusing and the harvey register was in front of him but had seeing and this lasted 3-4 minutes then he had a seizure. He denies of any urinary or bowel incontinence or tongue soreness with this episode. He said about 2 weeks ago while at home in the year he had a hard time focusing and he felt when he looked around it was like a snap shot and episode lasted for 10 seconds and went inside to his house. Patient denies any history of seizures in the past. Patient denies of any alcohol use. Patient is on Eliquis, Xanax 1 mg daily at bedtime, Lipitor 40 mg daily at bedtime, lisinopril, tramadol. Regarding his history it was normal. Some of the workup in the hospital consisted of: Initial vital signs his blood pressure 145/81, heart rate of 109, respiratory of 20, temperature of 97.6 Fahrenheit oral and pulse ox 97% at room air. White blood cell is a 8.4 thousand Sodium is 136, potassium 3.7, creatinine is 0.83, glucose of 141, calcium is 9.2, magnesium is 1.5, AST is 23, ALT of 17, initial serum glucose of 141 Plasma lactic acid vein is 2.8. Serum alcohol level is less than 10 Isbell virus is nondetect[address] CT of the head is reported as negative. CT cervical spine is reported as spondylytic multilevel changes in the cervical spine. No fracture. In the body reported it is reported that the patient has degenerative disc space narrowing at the level from C4 to C6 with spurring at the endplates. Noted at the lung apices with pulmonary fibrotic changes. EKG is reported as ventricle abates rhythm with occasional premature ventricular complexes. Abnormal EKG. Review of Systems Review of system: The 12 point system was reviewed and apparent positive and negative per HPI. Past Medical History Past Medical History: Atrial Fibrillation, COPD, Diabetes Mellitus, Deep Vein Thrombosis (DVT), GERD/Reflux, Hyperlipidemia, Hypertension, Pulmonary Embolus (PE) Additional Past Medical History / Comment(s): Hx gibson's esophagus. Hx C ellulitis in compa feet. Multiple pulmonary embolisms (2014), pacemaker dependent. Emphysema. History of Any Multi-Drug Resistant Organisms: None Reported Past Surgical History: Cardiac Ablation, Joint Replacement, Orthopedic Surgery, Pacemaker Additional Past Surgical History / Comment(s): pacemaker(2000), 2006; pacemaker battery replaced 2017. Rt knee replacement, right ankle surgery, colonoscopy, EGD. Fluoroscopy leads 06/04/21 Past Anesthesia/Blood Transfusion Reactions: No Reported Reaction Type of Cardiac Device: Permanent Pacemaker Device Placement Date:: 2000 Past Psychological History: No Psychological Hx Reported Smoking Status: Former smoker Past Alcohol Use History: None Reported Additional Past Alcohol Use History / Comment(s): QUIT SMOKING 1995, 1PPD. Past Drug Use History: None Reported - Past Family History Father Additional Family Medical History / Comment(s): CABG x4 Mother Family Medical History: Cancer Additional Family Medical History / Comment(s): CABG x4, defib pacemaker , blood disorder, Medications and Allergies Home Medications Medication Instructions Recorded Confirmed Type Omeprazole 40 mg PO DAILY 09/27/14 07/10/21 History Sotalol [Betapace] 80 mg PO BID 09/27/14 07/10/21 History traMADol HCL [Ultram] 100 mg PO QID PRN 09/25/16 07/10/21 History ALPRAZolam [Xanax] 1 mg PO HS 11/10/17 07/10/21 History Apixaban [Eliquis] 5 mg PO BID 05/30/21 07/10/21 History Atorvastatin [Lipitor] 40 mg PO HS 05/30/21 07/10/21 History Dulaglutide [Trulicity] 0.75 mg SQ MARTINEZ 05/30/21 07/10/21 History lisinopriL 10 mg PO DAILY 05/30/21 07/10/21 History Umeclidinium [place] [Incruse 1 puff INHALATION RT-DAILY 07/10/21 07/10/21 History Ellipta] Allergies Allergy/AdvReac Type Severity Reaction Status Date / Time bacitracin Allergy Unknown Verified 07/10/21 22:56 [From Neosporin ([id number])] bacitracin zinc Allergy Unknown Verified 07/10/21 22:56 [From Neosporin ([id number])] neomycin sulfate Allergy Unknown Verified 07/10/21 22:56 [From Neosporin ([id number]-[id number])] polymyxin B Allergy Unknown Verified 07/10/21 22:56 [From Neosporin ([id number])] Physical Examination - Vital Signs Vital Signs: Vital Signs Temp Pulse Pulse Resp BP BP Pulse Ox 07/11/21 09:06 99 16 103/61 92 L 07/11/21 04:13 97.9 F 71 18 111/70 99 07/11/21 02:51 74 20 109/70 100 07/11/21 00:00 69 20 143/86 98 07/10/21 23:03 72 20 125/75 98 07/10/21 22:30 72 20 137/82 97 07/10/21 22:00 67 22 139/96 97 07/10/21 21:01 91 20 130/78 97 07/10/21 20:38 92 20 132/83 98 07/10/21 20:30 97.6 F 109 H 20 145/81 97 Intake and Output 07/10/21 07/11/21 07/11/21 22:59 06:59 14:59 Other: Weight 83.915 kg 83.915 kg GENERAL: The patient is lying in bed and is not in acute distress. HENT: Forehead is wrapped in gauge. CHEST: The heart rate is regular rate rhythm. No murmurs to auscultation. No carotid bruit bilaterally. LUNG: Clear to auscultation bilaterally no wheezing noted throughout. Not labored breathing. ABDOMEN/GI: Bowel sounds present in all 4 quadrants. No tenderness to palpation throughout. NEUROLOGICAL: Higher mental function: The patient is awake, alert, oriented to self, place and time. Patient is following commands. No aphasia and no neglect. Cranial nerves: The pupils are round, equal and reactive to light and accommodation. Visual garcia are full to confrontation throughout. Extraocular movement is intact no nystagmus is noted. Facial sensation is normal to touch throughout. The facial strength is normal throughout. Hearing is normal bilaterally to hand rub. Tongue is midline and moved [id number] without any difficulty. No dysarthria is noted. Shoulder shrug is normal bilaterally. Motor: Gait is deferred. The strength is proximal upper extremities are non- focal but limited because of bilateral shoulder pain (rotator cuff). Otherwise 5 over 5 throughout. Normal tone and bulk. Cerebellum: Normal finger to nose bilaterally. Sensation: Sensation is normal to touch throughout. Reflexes (right/left): 2+ throughout. Plantars are downgoing bilaterally. Results - Laboratory Findings CBC and BMP: 07/11/21 05:31 07/11/21 05:31 Abnormal Lab Findings: Abnormal Labs 07/10/21 07/10/21 07/10/21 20:52 20:52 20:52 RBC 4.24 L Hgb Hct Sodium 136 L BUN 8 L Glucose 141 H Plasma Lactic Acid Golden 2.8 H* Magnesium 1.5 L Total Protein 6.1 L 07/11/21 07/11/21 05:31 05:31 RBC 4.03 L Hgb 12.7 L Hct 36.5 L Sodium BUN Glucose 130 H Plasma Lactic Acid Golden Magnesium Total Protein Assessment and Plan Assessment: Likely New onset seizure Cervical spondylosis Atrial fibrillation on Eliquis, pacemaker Diabetes mellitus Plan: * In the ED the patient was started on Keppra 500 mg once. Because this is a first clear new onset seizure we'll hold off on on maintenance antiepileptic drug for now (patient has clear seizure yesterday but had visual disturbance 2 weeks ago but did not pass out) and patient is in agreement but if he has another episode recommend placing on antiepileptic (Keppra 500mg 1 tab bid). * I ordered a routine EEG. I'll not start the patient on antiepileptic unless there is epileptiform discharges or seizure on the EEG. * Cannot get MRI of the brain since the patient has a pacemaker. * Placed on seizure precaution and seizure pads * Every 4 hours neuro checks * Cardiology team is on board. * We'll defer the rest of the medical measure the primary team. * Upon discharge the patient is to follow up with a neurologist as outpatient within 1-2 weeks * Per the [place] DMV, because of this seizure-like activity patient cannot drive for 6 month until seizure-free. Patient is to avoid heights, swimming unassisted, avoid using heavy machinery. This was notified to the patient. Thank you for the consultation. Jorge Jarvis MD Neuro-Hospitalist Time with Patient: Greater than 30
[2021-07-11 12:23] LABS: Appearance,Urine Clear (Clear); Bilirubin,Urine Negative (Negative); Blood,Urine Negative (Negative); Color,Urine Yellow; Glucose,Urine (UA) Negative (Negative); Ketones,Urine Negative (Negative); Leukocyte Esterase,Urine Negative (Negative); Nitrite,Urine Negative (Negative); PH, Urine 5.5 (5.0-8.0); Protein,Urine Trace (Negative); Specific Gravity,Urine 1.016 (1.001-1.035); Urobilinogen,Urine <2.0 mg/dL (<2.0)
[2021-07-11] MEDS: SOTALOL 80 MG TAB PO SCH ×2 (12:29→21:32)
[2021-07-11] MEDS: lisinopriL 10 MG TAB PO SCH (12:29)
[2021-07-11 12:51] LABS: Amphetamine Screen,Urine Not Detected (NotDetected); Barbiturate Screen,Urine Not Detected (NotDetected); Benzodiazepines Screen,Urine Detected (NotDetected); Cocaine Screen,Urine Not Detected (NotDetected); Methadone Screen, Urine Not Detected (NotDetected); Opiate Screen,Urine Detected (NotDetected); Oxycodone Screen, Urine Not Detected (NotDetected); Phencyclidine Screen,Urine Not Detected (NotDetected); Tricyclic Antidepressant,Urine Not Detected (NotDetected); Urn Cannabinoid Scrn Not Detected (NotDetected)
--- NOTE | 2021-07-11 12:55 | ECHOF ---
Referral Reason:LV function MEASUREMENTS -------- HEIGHT: 180.3 cm WEIGHT: 83.9 kg BP: IVSd: 1.1 cm (0.6 - 1.1) LVIDd: 4.4 cm (3.9 - 5.3) LVPWd: 1.2 cm (0.6 - 1.1) IVSs: 1.8 cm LVIDs: 2.0 cm LVPWs: 1.9 cm Ao Diam: 3.3 cm (2.0 - 3.7) AV Cusp: 1.8 cm (1.5 - 2.6) LA Diam: 2.7 cm (2.7 - 3.8) MV EXCURSION: 17.701 mm (> 18.000) MV EF SLOPE: 77 mm/s (70 - 150) EPSS: 0.3 cm MV E Flako: 0.72 m/s MV DecT: 157 ms MV A Flako: 0.88 m/s MV E/A Ratio: 0.81 RAP: 5.00 mmHg RVSP: 35.26 mmHg FINDINGS -------- Pacemaker This was a technically difficult study with suboptimal views. The left ventricular size is normal. There is mild concentric left ventricular hypertrophy. Overa ll left ventricular systolic function is low-normal with, an EF between 50 - 55 %. Left ventricular fillimg pressure cannot be estimated due to paced rhythm. The right ventricle is normal in size. The left atrial size is normal. The right atrial size is normal. Lumason used The aortic valve is trileaflet and appears structurally normal. The mitral valve is normal. There is trace mitral regurgitation. The tricuspid valve appears structurally normal. Trace tricuspid regurgitation present. Right ephraim tricular systolic pressure is normal at < 35 mmHg. There is no pulmonic regurgitation present. The aortic root size is normal. IVC Not well visulized. There is no pericardial effusion. CONCLUSIONS -------- 1. Pacemaker 2. The left ventricular size is normal. 3. There is mild concentric left ventricular hypertrophy. 4. Overall left ventricular systolic function is low-normal with, an EF between 50 - 55 %. 5. Left ventricular fillimg pressure cannot be estimated due to paced rhythm. 6. There is trace mitral regurgitation. 7. Trace tricuspid regurgitation present. 8. There is no pericardial effusion. SUPERVISOR GRAPHITE: Su Rehman [facility]
--- NOTE | 2021-07-11 12:59 | P.CRDCN ---
History of Present Illness History of present illness: HISTORY OF PRESENTING ILLNESS This is a pleasant 61-year-old male past medical history significant for persistent atrial fibrillation status post AV ashley ablation in 2006, permanent pacemaker implantation in [place], dyslipidemia, tobacco use. He follows in the office with Dr. Licona. We have been asked to see in consultation for pacemaker interrogation. Patient presents emergency department after a new onset seizure. Patient states yesterday he was at [employer] shopping, he was walking up to the self-check out and had difficulty focusing on where he was in the store, and started to see "flash freeze images" of his surroundings as he was looking from left to right, he states these symptoms increased and the next thing he remembers is waking up in the ambulance. He states this has happened to him before but lasted about 15 seconds, at that time he was home moving around bikes in his backyard had similar symptoms of seeing a snap shot of images. Yesterday he states his symptoms persisted longer. Per EMS report patient was shopping at [employer] when bystanders witnessed him having a seizure. There was report that he was walking, stiffened up and fell straight back onto his head. He had toniccolonic movements that lasted approximately 5 minutes. EMS was called and upon their arrival seizure activity had stopped and patient was postictal. Currently the patient states he does have dizziness, lightheadedness, and pain at the back of his head. He denies any chest pain, shortness of breath, or palpitations. Of note, May 2021 patient was seen by Dr. Licona he was complaining of muscle stimulation at the pocket of his pacemaker. His device was interrogated he was having atrial tachycardia, the atrial lead was showing noise and increasing impedance. They programmed to VVIR mode, however the patient could not tolerate this and felt short of breath. Patient underwent fluroscopy study and venography to assess the patency of the central vein for additional lead placement on 06/04/21 [facility] revealed patent axillary and subclavian vein and no obvious fractures noted on the leads. Patient follow-up with Dr. Licona in the office on 05/21/2021 his atrial pacing was turned off and only atrial sensing remained. DIAGNOSTICS Pacemaker Interrogation: no acute findings on interrogation, pacemaker parameters appear improved from last interrogation on 06/21/21. He is currently Vpaced and atrial sensing is on. EKG reveals ventricular paced rhythm with occasional PVC Echocardiogram in 2018 revealed an EF 45-50%, anterior septal hypokinesis, LA severely dilated, mild mitral regurgitation, mild tricuspid regurgitation Telemetry tracings indicate V paced rhythm CT and cervical spine revealed spondylitic multivessel changes in cervical spine. No fracture. No acute intracranial abnormality. Laboratory reviewed, WBC 9.5, hemoglobin 12.7, platelets 157, sodium 137, potassium 4.3, BUN 9, serum creatinine 0.7, troponin negative 1, lactate 2.8, repeat 1.1, COVID-19 PCR negative, serum alcohol content negative Current home medications include sotalol 80 mg twice a day, lisinopril 10 mg daily, omeprazole, atorvastatin 40 mg daily, Eliquis 5 mg twice a day, Xanax, tramadol REVIEW OF SYSTEMS At the time of my exam: CONSTITUTIONAL: Denies fever or chills. CARDIOVASCULAR: Denies chest pain, shortness of breath, orthopnea, PND or palpitations. RESPIRATORY: Denies cough. GASTROINTESTINAL: Denies abdominal pain, diarrhea, constipation, nausea or vomiting. MUSCULOSKELETAL: Denies myalgias. NEUROLOGIC: +dizziness, +lightheadedness Denies numbness, tingling, headache or weakness. ENDOCRINE: Denies fatigue, weight change, polydipsia or polyurina. GENITOURINARY: Denies burning, hematuria or urgency with micturation. HEMATOLOGIC: Denies history of anemia or bleeding. PHYSICAL EXAMINATION Blood pressure 103/61, heart rate 99, afebrile, maintaining oxygen saturations on room air CONSTITUTIONAL: No apparent distress. HEENT: Head is normocephalic. Pupils are equal, round. Sclerae anicteric. Mucous membranes of the mouth are moist. No JVD. No carotid bruit. CHEST EXAMINATION: Lungs are clear to auscultation. No chest wall tenderness is noted on palpation or with deep breathing. HEART EXAMINATION: Regular rate and rhythm. S1, S2 heard. No murmurs, gallops or rub. ABDOMEN: Soft, nontender. Positive bowel sounds. EXTREMITIES: 2+ peripheral pulses, no lower extremity edema and no calf tenderness. NEUROLOGIC EXAMINATION: Patient is awake, alert and oriented x3. ASSESSMENT Possibly seizure episode Persistent atrial fibrillation status post AV ashley ablation in 2006, on Eliquis Permanent pacemaker implantation in [place] Dyslipidemia Chronic tobacco use PLAN -Patient's pacemaker device was interrogated in emergency department, no acute findings on interrogation, pacemaker parameters appear improved from last interrogation on 06/21/21. -Obtain 2D echocardiogram -Continue cardiac telemetry to rule out any pacemaker malfunction, pauses or arrythmia -Continue patient's home Eliquis, Lisinopril, sotalol, and statin -Further recommendations based on clinical course Nurse Practitioner note has been reviewed, I agree with a documented findings and plan of care. Patient was seen and examined. Past Medical History Past Medical History: Atrial Fibrillation, COPD, Diabetes Mellitus, Deep Vein Thrombosis (DVT), GERD/Reflux, Hyperlipidemia, Hypertension, Pulmonary Embolus (PE) Additional Past Medical History / Comment(s): Hx gibson's esophagus. Hx Cellulitis in compa feet. Multiple pulmonary embolisms (2014), pacemaker dependent. Emphysema. History of Any Multi-Drug Resistant Organisms: None Reported Past Surgical History: Cardiac Ablation, Joint Replacement, Orthopedic Surgery, Pacemaker Additional Past Surgical History / Comment(s): pacemaker(2000), 2006; pacemaker battery replaced 2017. Rt knee replacement, right ankle surgery, colonoscopy, EGD. Fluoroscopy leads 06/04/21 Past Anesthesia/Blood Transfusion Reactions: No Reported Reaction Type of Cardiac Device: Permanent Pacemaker Device Placement Date:: 2000 Past Psychological History: No Psychological Hx Reported Smoking Status: Former smoker Past Alcohol Use History: None Reported Additional Past Alcohol Use History / Comment(s): QUIT SMOKING 1995, 1PPD. Past Drug Use History: None Reported - Past Family History Father Additional Family Medical History / Comment(s): CABG x4 Mother Family Medical History: Cancer Additional Family Medical History / Comment(s): CABG x4, defib pacemaker , blood disorder, Medications and Allergies Home Medications Medication Instructions Recorded Confirmed Type Omeprazole 40 mg PO DAILY 09/27/14 07/10/21 History Sotalol [Betapace] 80 mg PO BID 09/27/14 07/10/21 History traMADol HCL [Ultram] 100 mg PO QID PRN 09/25/16 07/10/21 History ALPRAZolam [Xanax] 1 mg PO HS 11/10/17 07/10/21 History Apixaban [Eliquis] 5 mg PO BID 05/30/21 07/10/21 History Atorvastatin [Lipitor] 40 mg PO HS 05/30/21 07/10/21 History Dulaglutide [Trulicity] 0.75 mg SQ MARTINEZ 05/30/21 07/10/21 History lisinopriL 10 mg PO DAILY 05/30/21 07/10/21 History Umeclidinium Milton [Incruse 1 puff INHALATION RT-DAILY 07/10/21 07/10/21 History Ellipta] Allergies Allergy/AdvReac Type Severity Reaction Status Date / Time bacitracin Allergy Unknown Verified 07/10/21 22:56 [From Neosporin ([id number])] bacitracin zinc Allergy Unknown Verified 07/10/21 22:56 [From Neosporin ([id number])] neomycin sulfate Allergy Unknown Verified 07/10/21 22:56 [From Neosporin ([id number])] polymyxin B Allergy Unknown Verified 07/10/21 22:56 [From Neosporin ([id number])] Physical Exam Vitals: Vital Signs Temp Pulse Pulse Resp BP BP Pulse Ox 07/11/21 09:06 99 16 103/61 92 L 07/11/21 04:13 97.9 F 71 18 111/70 99 07/11/21 02:51 74 20 109/70 100 07/11/21 00:00 69 20 143/86 98 07/10/21 23:03 72 20 125/75 98 07/10/21 22:30 72 20 137/82 97 07/10/21 22:00 67 22 139/96 97 07/10/21 21:01 91 20 130/78 97 07/10/21 20:38 92 20 132/83 98 07/10/21 20:30 97.6 F 109 H 20 145/81 97 Intake and Output 07/10/21 07/11/21 07/11/21 22:59 06:59 14:59 Other: Weight 83.915 kg 83.915 kg Results 07/11/21 05:31 07/11/21 05:31 Cardiac Enzymes 07/10/21 07/10/21 Range/Units 20:52 20:52 AST 23 (17-59) U/L Troponin I <0.012 (0.000-0.034) ng/mL Coagulation 07/10/21 Range/Units 20:52 PT 11.1 (9.0-12.0) sec APTT 22.8 (22.0-30.0) sec CBC 07/10/21 07/11/21 Range/Units 20:52 05:31 WBC 8.4 9.5 (3.8-10.6) k/uL RBC 4.24 L 4.03 L (4.30-5.90) m/uL Hgb 13.1 12.7 L (13.0-17.5) gm/dL Hct 39.2 36.5 L (39.0-53.0) % Plt Count 170 157 (150-450) k/uL Comprehensive Metabolic Panel 07/10/21 07/11/21 Range/Units 20:52 05:31 Sodium 136 L 137 (137-145) mmol/L Potassium 3.7 4.3 (3.5-5.1) mmol/L Chloride 105 104 (98-107) mmol/L Carbon Dioxide 22 25 (22-30) mmol/L BUN 8 L 9 (9-20) mg/dL Creatinine 0.83 0.75 (0.66-1.25) mg/dL Glucose 141 H 130 H (74-99) mg/dL Calcium 9.2 9.3 (8.4-10.2) mg/dL AST 23 (17-59) U/L ALT 17 (4-49) U/L Alkaline Phosphatase 57 (38-126) U/L Total Protein 6.1 L (6.3-8.2) g/dL Albumin 3.6 (3.5-5.0) g/dL Current Medications Generic Name Dose Route Start Last Admin Trade Name Freq PRN Reason Stop Dose Admin Acetaminophen 650 mg 07/10/21 22:38 Acetaminophen Tab 325 Mg Tab PO Q6HR PRN Mild Pain or Fever > 100.5 Alprazolam 1 mg 07/11/21 21:00 Alprazolam 1 Mg Tab PO HS NORBERTO Apixaban 5 mg 07/11/21 09:00 07/11/21 08:52 Apixaban 5 Mg Tab PO 5 mg BID [facility] Administration Protocol Atorvastatin Calcium 40 mg 07/11/21 21:00 Atorvastatin 40 Mg Tab PO HS NORBERTO Hydromorphone HCl 1 mg 07/10/21 22:38 07/11/21 09:13 Hydromorphone 1 Mg/Ml 1 Ml Syringe IVP 1 mg Q3HR PRN Administration Severe Pain Ipratropium Milton 0.5 mg 07/11/21 08:00 Ipratropium 0.5 Mg/2.5 Ml Nebu INHALATION RT-QID [facility] Lisinopril 10 mg 07/11/21 09:00 Lisinopril 10 Mg Tab PO DAILY [facility] Naloxone HCl 0.2 mg 07/10/21 22:38 Naloxone 0.4 Mg/Ml 1 Ml Vial IV Q2M PRN Opioid Reversal Ondansetron HCl 4 mg 07/10/21 22:38 07/11/21 04:12 Ondansetron 4 Mg/2 Ml Vial IVP 4 mg Q8HR PRN Administration Nausea And Vomiting Pantoprazole Sodium 40 mg 07/11/21 09:00 07/11/21 08:52 Pantoprazole 40 Mg Tablet PO 40 mg DAILY [facility] Administration Sotalol HCl 80 mg 07/11/21 09:00 Sotalol 80 Mg Tab PO BID [facility] Tramadol HCl 100 mg 07/11/21 00:30 Tramadol 50 Mg Tab PO QID PRN Pain Intake and Output 07/10/21 07/11/21 07/11/21 22:59 06:59 14:59 Other: Weight 83.915 kg 83.915 kg Patient Weight 07/12/21 06:59 Weight 83.915 kg 07/11/21 05:31 07/11/21 05:31
[2021-07-11] MEDS: MECLIZINE 25 MG TAB PO PRN (21:31)
[2021-07-11] MEDS: ALPRAZolam 1 MG TAB PO SCH (21:32)
[2021-07-11] MEDS: ATORVASTATIN 40 MG TAB PO SCH (21:32)
--- NOTE | 2021-07-12 01:15 | HP ---
HISTORY AND PHYSICAL HISTORY OF PRESENT ILLNESS: 61-year-old white male in A-fib on Eliquis. The pacemaker with recent fracture of a pacemaker lead for which pacemaker was adjusted that may be contributing to him falling down and having syncope. He is supposed to be seen by another stationary equipment mechanic for another pacemaker wire replacement. Was thought to stand up and possibly have a tonoclonic seizure back at the store. He was brought to the hospital. He says he has been having a hard time focusing at the [employer] before he fell and he has had this difficulty with his vision over the last few months on and off that he says may be related to seizures. MEDICATIONS: Home medicines include: Eliquis, Xanax, Lipitor, lisinopril, tramadol. REVIEW OF SYMPTOMS: 14-point review of system is negative except for mentioned in HPI. CT of the head was negative. Spondylolysis of the cervical spine seen on CT scan of the neck. He had magnolia placed in the back of his neck when he hit his head last night. There is no fracture of the cervical spine. He has pulmonary fibrosis on CT scan. EKG shows a ventricular rhythm, paced rhythm, PVCs. PAST MEDICAL HISTORY: A-fib, CAD, COPD, diabetes mellitus, DVT, GERD, dyslipidemia, hypertension, pulmonary embolism, permanent pacemaker. SOCIAL HISTORY: Quit smoking. No alcohol. No drugs. HOME MEDICINES: Betapace, tramadol, Xanax at night, Eliquis 5 mg b.i.d., Lipitor 40 daily, Trulicity 0.75 once a week subcu, 10 mg daily, Ellipta inhaler 1 puff daily, omeprazole 20 daily. FAMILY HISTORY: Mother with cancer. Father with defibrillator and pacemaker. ALLERGIES: BACITRACIN, POLYMYXIN. PHYSICAL EXAMINATION: Temp 97.6, blood pressure 130s -140s, respiratory 18-20. He has a bandage wrapped around his head for which he has magnolia in the back of his head. LUNGS are clear. HEART: S1, S2. ABDOMEN is soft. NEUROLOGIC: Follows commands. Alert and oriented x3. He can move all 4 extremities. HEMATOLOGY: Negative Homans. Neuro exam focal is normal. LABORATORY DATA: Sodium 136, lactic acid 2.82, magnesium 1.5, low; hemoglobin 12.7, white count 4.0. ASSESSMENT: Seizure disorder. New onset. Keppra started in the ER. They are not going to put him on antiepileptic drug for now. If he has another episode they are going to start Keppra 500 b.i.d. Order routine EEG, which he cannot do due to the magnolia in his head. Cannot get an MRI since he has a pacemaker. Neuro checks every 4 hours. Cardiology. Lets do possibly an echo or a bubble echo. Follow up as an outpatient. He cannot drive for 6 months. Prognosis guarded. MMODL / IJN: [id number] /
[2021-07-12] MEDS: HYDROmorphone 1 MG/ML 1 ML SYRINGE IVP PRN ×4 (05:35→22:18)
[2021-07-12] MEDS: APIXABAN 5 MG TAB PO SCH ×2 (08:24→22:17)
[2021-07-12] MEDS: lisinopriL 10 MG TAB PO SCH (08:24)
[2021-07-12] MEDS: SOTALOL 80 MG TAB PO SCH ×2 (08:25→22:18)
[2021-07-12] MEDS: PANTOPRAZOLE 40 MG TABLET PO SCH (08:25)
[2021-07-12] MEDS: IPRATROPIUM 0.5 MG/2.5 ML NEBU INHALATION SCH ×4 (08:53→20:32)
--- NOTE | 2021-07-12 10:43 | P.PN ---
Subjective This is a pleasant 61-year-old male past medical history significant for persistent atrial fibrillation status post AV ashley ablation in 2006, permanent pacemaker implantation in [place], dyslipidemia, tobacco use. He follows in the office with Dr. Licona. We have been asked to see in consultation for pacemaker interrogation. Patient presents emergency department after a new onset seizure. Patient states yesterday he was at [employer] grocery shopping, he was walking up to the self-check out and had difficulty focusing on where he was in the store, and started to see "flash freeze images" of his surroundings as he was looking from left to right, he states these symptoms increased and the next thing he remembers is waking up in the ambulance. He states this has happened to him before but lasted about 15 seconds, at that time he was home moving around bikes in his backyard had similar symptoms of seeing a snap shot of images. Yesterday he states his symptoms persisted longer. Per EMS report patient was shopping at [employer] when bystanders witnessed him having a seizure. There was report that he was walking, stiffened up and fell straight back onto his head. He had toniccolonic movements that lasted approximately 5 minutes. EMS was called and upon their arrival seizure activity had stopped and patient was postictal. Of note, May 2021 patient was seen by Dr. Licona he was complaining of muscle stimulation at the pocket of his pacemaker. His device was interrogated he was having atrial tachycardia, the atrial lead was showing noise and increasing impedance. They programmed to VVIR mode, however the patient could not tolerate this and felt short of breath. Patient underwent fluroscopy study and venography to assess the patency of the central vein for additional lead placement on 06/04/21 [facility] revealed patent axillary and subclavian vein and no obvious fractures noted on the leads. Patient follow-up with Dr. Licona in the office on 05/21/2021 his atrial pacing was turned off and only atrial sen sing remained. 07/12/21: Patient seen and examined also, distress. He continues to have some dizziness, describes it as the room spinning when he sits forward or is ambulating. He denies any chest pain, palpitations, shortness of breath. He does continue to have some mild head pain due to his injury when he fell. Telemetry reviewed, patient is V-paced rhythm no evidence of pauses or arrhythmias. Pacemaker Interrogation from yesterday weith no acute findings on interrogation, pacemaker parameters appear improved from last interrogation on 06/21/21. Echocardiogram revealed EF of 5055 percent, trace mitral regurgitation, trace tricuspid regurgitation. Laboratory data reviewed WBC 9.5, hemoglobin 12.7, platelets 157, sodium 137, potassium 4.3, BUN 9, serum creatinine 0.7, TSH within normal limits. PHYSICAL EXAMINATION Blood pressure 117/72, heart rate 81, afebrile, maintaining oxygen saturations on room air. CONSTITUTIONAL: No apparent distress. HEENT:Neck Supple No JVD. Head wrapped in gauze with laceration CHEST EXAMINATION: Lungs are clear to auscultation. No chest wall tenderness is noted on palpation or with deep breathing. HEART EXAMINATION: Regular rate and rhythm. S1, S2 heard. No murmurs, gallops or rub. ABDOMEN: Soft, nontender. Positive bowel sounds. EXTREMITIES: 2+ peripheral pulses, no lower extremity edema and no calf tenderness. NEUROLOGIC EXAMINATION: Patient is awake, alert and oriented x3. ASSESSMENT Possibly seizure episode Persistent atrial fibrillation status post AV ashley ablation in 2006, on Eliquis Permanent pacemaker implantation in [place] Dyslipidemia Chronic tobacco use PLAN -Patient's pacemaker device was interrogated in emergency department, no acute findings on interrogation, pacemaker parameters appear improved from last interrogation on 06/21/21. Cardiac telemetry reveals V-paced rhythm, No evidence of pauses or arrythmia. Echocardiogram reviewed with normal LV function and no significant wall motional abnormalities. From a cardiology perspective, no further cardiac workup indicated at this time. Patient is stable to be discharged from a cardiology perspective pending Neurology clearance. We will follow the patient as needed. Please reach out with further questions or concerns. Continue home cardiac medications and Eliquis. Follow up outpatient with patient's primary supervisor engine repair Dr. Licona. Nurse Practitioner note has been reviewed, I agree with a documented findings and plan of care. Patient was seen and examined. Objective - Vital Signs Vital signs: Vital Signs Temp 99.0 F 07/12/21 07:00 Pulse 81 07/12/21 07:00 Resp 18 07/12/21 08:00 BP 117/72 07/12/21 07:00 Pulse Ox 98 07/12/21 07:00 Intake & Output 07/11/21 07/12/21 07/12/21 18:59 06:59 18:59 Weight 83.915 kg Other: # Voids 1 1 # Bowel Movements 0 # Emeses 1 - Labs CBC & Chem 7: 07/11/21 05:31 07/11/21 05:31 Labs: Abnormal Lab Results - Last 24 Hours (Table) 07/11/21 Range/Units 11:24 Urine Protein Trace H (Negative) Urine Opiates Screen Detected H (NotDetected) U Benzodiazepines Scrn Detected H (NotDetected)
--- NOTE | 2021-07-12 16:04 | XR ---
EXAMINATION TYPE: XR knee complete LT DATE OF EXAM: 07/12/2021 COMPARISON: None HISTORY: Syncope, knee pain TECHNIQUE: 3 view left knee FINDINGS: No joint effusion is evident. Patellofemoral and medial compartment loss of joint space is present. There is preservation of lateral compartment joint space. Medial and lateral tibial plateau spurring is present. No acute fractures or dislocations are evident. Follow up exams can be performed 7-10 days from acute trauma for continued pain. IMPRESSION: 1. Moderate degenerative changes left knee
[2021-07-12] MEDS: methylPREDNISolone SOD SUCCI 40 MG/ML 1 ML VIAL IV SCH ×2 (17:52→22:18)
--- NOTE | 2021-07-12 17:55 | P.PN ---
Subjective Progress Note Date: 07/12/21 Patient is seen at bedside and he stated that he has not had any further episodes of passing out or any seizure-like activity. Objective - Vital Signs Vital signs: Vital Signs Temp 99.0 F 07/12/21 07:00 Pulse 105 H 07/12/21 11:30 Resp 18 07/12/21 08:00 BP 117/72 07/12/21 07:00 Pulse Ox 98 07/12/21 07:00 Intake & Output 07/11/21 07/12/21 07/12/21 18:59 06:59 18:59 Weight 83.915 kg Other: # Voids 1 1 2 # Bowel Movements 0 # Emeses 1 - Exam GENERAL: The patient is lying in bed and is not in acute distress. HENT: Continusion over parietal region. NEUROLOGICAL: Higher mental function: The patient is awake, alert, oriented to self, place and time. Patient is following commands. No aphasia and no neglect. Cranial nerves: The pupils are round, equal and reactive to light and accommodation. Visual garcia are full to confrontation throughout. Extraocular movement is intact no nystagmus is noted. Facial sensation is normal to touch throughout. The facial strength is normal throughout. Hearing is normal bilaterally to hand rub. Tongue is midline and moved [id number] without any difficulty. No dysarthria is noted. Shoulder shrug is normal bilaterally. Motor: Gait is deferred. The strength is proximal upper extremities are non- focal but limited because of bilateral shoulder pain (rotator cuff). Otherwise 5 over 5 throughout. Normal tone and bulk. Cerebellum: Normal finger to nose bilaterally. Sensation: Sensation is normal to touch throughout. Reflexes (right/left): 2+ throughout. Plantars are downgoing bilaterally. WORK-UP: CT of the head is reported as negative. CT cervical spine is reported as spondylytic multilevel changes in the cervical spine. No fracture. In the body reported it is reported that the patient has degenerative disc space narrowing at the level from C4 to C6 with spurring at the endplates. Noted at the lung apices with pulmonary fibrotic changes. EKG is reported as ventricle abates rhythm with occasional premature ventricular complexes. Abnormal EKG. 2-D echo was reported as mild concentric left ventricular hypertrophy. Pacemaker. Ejection fraction of 50-55%. Left ventricle filling pressure cannot be estimated to paced rhythm. Left atrial size is normal. - Labs CBC & Chem 7: 07/11/21 05:31 07/11/21 05:31 Assessment and Plan Assessment: Likely New onset seizure Cervical spondylosis Atrial fibrillation on Eliquis, pacemaker Diabetes mellitus Plan: * Because this is a first clear new onset seizure we'll hold off on on maintenance antiepileptic drug for now (patient has clear seizure that lead him come to hospital but had visual disturbance 2 weeks ago but did not pass out) and patient is in agreement but if he has another episode recommend placing on antiepileptic (Keppra 500mg 1 tab bid). * We could not get the routine EEG since the patient has contusion on the brain. Recommend getting EEG as an outpatient and patient stated that he will pursue with EEG as an outpatient. * Cannot get MRI of the brain since the patient has a pacemaker. * Placed on seizure precaution and seizure pads * Every 4 hours neuro checks * Cardiology team is on board. * We'll defer the rest of the medical measure the primary team. * Upon discharge the patient is to follow up with a neurologist as outpatient within 1-2 weeks * Per the MD DMV, because of this seizure-like activity patient cannot drive for 6 month until seizure-free. Patient is to avoid heights, swimming unassisted, avoid using heavy machinery. This was notified to the patient. The plan was discussed with the patient as well as his nurse. There is no further neurological work-up. Neurology will sign off. Please reconsult if needed. Jorge Jarvis MD Neuro-Hospitalist Time with Patient: Less than 30
[2021-07-12] MEDS: ATORVASTATIN 40 MG TAB PO SCH (22:17)
[2021-07-12] MEDS: ALPRAZolam 1 MG TAB PO SCH (22:17)
--- NOTE | 2021-07-13 01:23 | PN ---
PROGRESS NOTE This 61-year-old white male seizure. Lacerations to the posterior scalp. He is doing well. Determining need for seizure medicines is being addressed. We may either start him on some, as he might have had a seizure at home, or we may wait until the next seizure. The patient is deciding. We are going to give him Solu-Medrol for 24 hours for the knee effusion on the left knee. Musculoskeletal of the left knee is hot and warm and swollen. CARDIOVASCULAR: S1, S2. Lungs clear. GI soft. ASSESSMENT: 1. Knee effusion, hematoma. 2. Hypertension. 3. Dyslipidemia. 4. Atrial fibrillation. 5. Cardiac arrhythmia. Continue current treatment. Follow up in the next 24 to 48 hours for discharge. MMODL / IJN: [id number] /
[2021-07-13] MEDS: IPRATROPIUM 0.5 MG/2.5 ML NEBU INHALATION SCH (08:24)
[2021-07-13] MEDS: SOTALOL 80 MG TAB PO SCH (08:51)
[2021-07-13] MEDS: lisinopriL 10 MG TAB PO SCH (08:51)
[2021-07-13] MEDS: PANTOPRAZOLE 40 MG TABLET PO SCH (08:51)
[2021-07-13] MEDS: APIXABAN 5 MG TAB PO SCH (08:51)
[2021-07-13] MEDS: methylPREDNISolone SOD SUCCI 40 MG/ML 1 ML VIAL IV SCH (08:52)
[2021-07-13 10:19] VITALS: BP 115/72; PULSE 87; RESP 16; TEMP 97.9
[2021-07-13] MEDS: MECLIZINE 25 MG TAB PO PRN (11:17)
== END 2021-07-13 15:01 | disposition home or self-care (01) ==
LOC: EC 20:29 → 6NMEDSUR 22:40
PROVIDERS: ADMIT Family Medicine; ATTEND Family Medicine
DX: G40.909 Epilepsy, unspecified, not intractable, without status epilepticus (principal); S01.01XA Laceration without foreign body of scalp, initial encounter; S06.0X9A Concussion with loss of consciousness of unspecified duration, initial encounter; M25.462 Effusion, left knee; I10 Essential (primary) hypertension; I48.19 Other persistent atrial fibrillation; H53.9 Unspecified visual disturbance; E78.5 Hyperlipidemia, unspecified; Z20.822 Contact with and (suspected) exposure to COVID-19; W19.XXXA Unspecified fall, initial encounter; E11.9 Type 2 diabetes mellitus without complications; J43.9 Emphysema, unspecified; K21.9 Gastro-esophageal reflux disease without esophagitis; I25.10 Atherosclerotic heart disease of native coronary artery without angina pectoris; K22.70 Barrett's esophagus without dysplasia; M25.512 Pain in left shoulder; M25.511 Pain in right shoulder; I49.3 Ventricular premature depolarization; E87.2 Acidosis; M47.812 Spondylosis without myelopathy or radiculopathy, cervical region; I47.1 Supraventricular tachycardia; Z79.01 Long term (current) use of anticoagulants; Z79.899 Other long term (current) drug therapy; Z88.1 Allergy status to other antibiotic agents; Z72.0 Tobacco use; Z95.0 Presence of cardiac pacemaker; Z96.651 Presence of right artificial knee joint; Z86.711 Personal history of pulmonary embolism; Z80.9 Family history of malignant neoplasm, unspecified
CPT/HCPCS: 99285; 12004; 96376 ×3; 96372; 96365; 96375; 36415; 94640 ×5; 93005; 80053; 80048; 84443; 82607; 82550; 83605; 83735; 84484; 85025 ×2; 85610; 85730; 81003; 80306; 83036; 87635; 73562; 72125; 70450; G0378 ×4; L0120; C8929; G0480; J2920 ×2; J2405 ×2; J1170 ×3; J3475; J1953; Q9950; 80320; 93306

== ENCOUNTER → 2021-07-24 | Outpatient (CLI) | payer MEDICARE ==
--- NOTE | 2021-07-24 08:59 | CT ---
EXAMINATION TYPE: CT brain wo con DATE OF EXAM: 07/24/2021 COMPARISON: CT brain 07/10/2021 HISTORY: concussion, new onset seizure CT DLP: 963.6 mGycm Automated exposure control for dose reduction was used. Helical acquisition obtained through the [employer]. FINDINGS: Cerebrovascular calcifications are present. There is no hemorrhage or hydrocephalus. The calvarium is intact. Paranasal sinuses and mastoid air cells as visualized are unremarkable. IMPRESSION: STABLE EXAM, NO ACUTE ABNORMALITY.
== END | disposition home or self-care (01) ==
LOC: RADCTMAIN 06:41
PROVIDERS: ATTEND Psychiatry & Neurology Neurology
DX: R56.9 Unspecified convulsions (principal)
CPT/HCPCS: 70450

== ENCOUNTER → 2021-08-06 | Outpatient (CLI) | payer MEDICARE ==
[2021-08-06 18:36] LABS: Basophils # (A) 0.04 X 10*3/uL (0.00-0.10); Basophils % (A) 0.7 %; Eosinophils # (A) 0.16 X 10*3/uL (0.04-0.35); Eosinophils % (A) 2.7 %; HCT 38.8 % (39.6-50.0); Lymphocytes # (A) 2.14 X 10*3/uL (0.90-5.00); Lymphocytes % (A) 35.5 %; MCH 30.7 pg (27.0-32.0); MCHC 33.5 g/dL (32.0-37.0); MCV 91.7 fL (80.0-97.0); Mean Platelet Volume 10.4 fL (9.5-12.2); Monocytes # (A) 0.68 X 10*3/uL (0.20-1.00); Monocytes % (A) 11.3 %; Neutrophils # (A) 2.99 X 10*3/uL (1.80-7.70); Neutrophils % (A) 49.5 %; Platelet Count 187 X 10*3/uL (140-440); RBC 4.23 X 10*6/uL (4.40-5.60); RDW 12.5 % (11.5-14.5); WBC 6.03 X 10*3/uL (4.50-10.00)
[2021-08-06 19:13] LABS: INR 1.01 (0.90-1.11)
[2021-08-06 19:45] LABS: African American GFR (CKD) 115.9 (60.0-200.0); Anion Gap 11.5 mmol/L (4.00-12.00); BUN/Creat Ratio 11.61 Ratio (12.00-20.00); Blood Urea Nitrogen 8.4 mg/dL (9.0-27.0); Calcium 9.6 mg/dL (8.7-10.3); Carbon Dioxide 23.7 mmol/L (21.6-31.8); Potassium 3.8 mmol/L (3.5-5.5)
== END | disposition home or self-care (01) ==
LOC: LABWHC1 14:36
PROVIDERS: ATTEND Internal Medicine Clinical Cardiac Electrophysiology
DX: I44.30 Unspecified atrioventricular block (principal); Z79.01 Long term (current) use of anticoagulants
CPT/HCPCS: 36415; 80048; 85025; 85610

== ENCOUNTER → 2021-08-21 | Outpatient (CLI) | payer MEDICARE ==
[2021-08-21 15:20] LABS: Basophils # (A) 0.06 X 10*3/uL (0.00-0.10); Basophils % (A) 0.9 %; Eosinophils # (A) 0.14 X 10*3/uL (0.04-0.35); Eosinophils % (A) 2.1 %; HCT 35.6 % (39.6-50.0); HGB 11.6 g/dL (13.0-17.0); Lymphocytes # (A) 2.07 X 10*3/uL (0.90-5.00); Lymphocytes % (A) 31.4 %; MCH 30.1 pg (27.0-32.0); MCHC 32.6 g/dL (32.0-37.0); MCV 92.2 fL (80.0-97.0); Mean Platelet Volume 10.5 fL (9.5-12.2); Monocytes # (A) 0.63 X 10*3/uL (0.20-1.00); Monocytes % (A) 9.5 %; Neutrophils # (A) 3.68 X 10*3/uL (1.80-7.70); Neutrophils % (A) 55.8 %; Platelet Count 175 X 10*3/uL (140-440); RBC 3.86 X 10*6/uL (4.40-5.60); RDW 12.8 % (11.5-14.5)
== END | disposition home or self-care (01) ==
LOC: LABWHC1 09:59
PROVIDERS: ATTEND Family Medicine
DX: B89 Unspecified parasitic disease (principal)
CPT/HCPCS: 36415; 85025

== ENCOUNTER → 2022-05-30 | Outpatient (CLI) | payer MEDICARE ==
[2022-05-30 11:57] LABS: INR 1.1 (<1.2); Partial Thromboplastin Time 26.3 sec (22.0-30.0); Prothrombin Time 11.3 sec (9.0-12.0)
[2022-05-30 14:32] LABS: HCT 40.1 % (39.6-50.0); HGB 13.2 g/dL (13.0-17.0); MCH 28.9 pg (27.0-32.0); MCHC 32.9 g/dL (32.0-37.0); MCV 87.7 fL (80.0-97.0); Mean Platelet Volume 10.6 fL (9.5-12.2); NRBC Per 100 WBC 0 /100 WBCS (0.0-0.0); Platelet Count 179 X 10*3/uL (140-440); RBC 4.57 X 10*6/uL (4.40-5.60); RDW 13.1 % (11.5-14.5); WBC 5.52 X 10*3/uL (4.50-10.00)
[2022-05-30 15:01] LABS: African American GFR (CKD) 110.2 (60.0-200.0); Albumin 4.5 g/dL (3.8-4.9); Albumin/Globulin Ratio 2.05 (1.60-3.17); BUN/Creat Ratio 7.25 Ratio (12.00-20.00); Blood Urea Nitrogen 5.8 mg/dL (9.0-27.0); Calcium 9.5 mg/dL (8.7-10.3); Globulin 2.2 g/dL (1.6-3.3); Non-African American GFR(CKD) 95.1 (60.0-200.0); Total Bilirubin 0.7 mg/dL (0.30-1.20); Total Protein 6.7 g/dL (6.2-8.2)
[2022-05-30 17:04] LABS: Appearance,Urine Clear (Clear); Bilirubin,Urine Negative (Negative); Blood,Urine Negative (Negative); Color,Urine Yellow (Yellow); Ketones,Urine Negative (Negative); Nitrite,Urine Negative (Negative); Specific Gravity,Urine 1.008 (1.001-1.030)
[2022-05-30 17:11] LABS: Bacteria,Urine None Seen /HPF (None Seen)
== END | disposition home or self-care (01) ==
LOC: LABPAT 10:56
PROVIDERS: ATTEND Orthopaedic Surgery Hand Surgery
DX: Z01.812 Encounter for preprocedural laboratory examination (principal)
CPT/HCPCS: 80053; 81001; 85027; 85610; 85730; 87070; 93005

== ENCOUNTER 2022-06-17 09:49 | Observation (INO) | payer MEDICARE ==
[~2022-06-17 09:49] MED LIST: ACETAMINOPHEN TAB 500 MG TAB PO PRN; GABAPENTIN 300 MG CAP PO PRN; HYDROmorphone 0.5 MG/0.5 ML SYRINGE IVP PRN; LIDOCAINE 1% (10MG/ML) FOR IV START INTRADERMA PRN; MELOXICAM 7.5 MG TAB PO PRN; ONDANSETRON 4 MG/2 ML VIAL IVP ONE; TRANEXAMIC ACID IN NACL,ISO-OS 1,000 MG in SALINE 1 100ML.BAG IVPB PRN
[2022-06-17] MEDS: LACTATED RINGERS 1,000 ML IV SCH ×3 (10:28→11:27)
[2022-06-17 10:30] LABS: Glucose,Whole Blood 120 mg/dL (70-110)
[2022-06-17] MEDS: VANCOMYCIN 1,250 MG in SODIUM CHLORIDE 0.9% 250 ML IVPB PRN ×2 (11:00→11:27)
[2022-06-17] MEDS ORDERED: MIDAZOLAM 2 MG/2 ML VIAL IVP ONE (11:05)
[2022-06-17] MEDS ORDERED: fentaNYL (PF) 50 MCG/ML 2 ML AMP IVP ONE (11:05)
[2022-06-17] MEDS ORDERED: SODIUM CHLORIDE 0.9% (PF) 10 ML VIAL ONE (11:27)
[2022-06-17] MEDS ORDERED: ePHEDrine 50 MG/ML 1 ML VIAL ONE (11:27)
[2022-06-17] MEDS ORDERED: PROPOFOL 10 MG/ML 20 ML VIAL IV ONE (11:27)
[2022-06-17] MEDS ORDERED: TRANEXAMIC ACID IN NACL,ISO-OS 1,000 MG/100 ML BAG ONE (11:27)
[2022-06-17] MEDS ORDERED: PHENYLEPHRINE-0.9% NACL SYG 1,000 MCG/10 ML SYRINGE ONE (11:27)
[2022-06-17] MEDS ORDERED: fentaNYL (PF) 50 MCG/ML 2 ML AMP ONE (11:27)
[2022-06-17] MEDS ORDERED: MIDAZOLAM 2 MG/2 ML VIAL ONE (11:27)
[2022-06-17] MEDS ORDERED: HYDROmorphone (PF) 1 MG/ML ONE (11:27)
[2022-06-17] MEDS ORDERED: ROPIVACAINE 5 MG/ML 30 ML VIAL ONE (11:27)
[2022-06-17] MEDS ORDERED: ceFAZolin 1,000 MG in SODIUM CHLORIDE 0.9% 1,000 ML IRRIGATION ONE (11:31)
--- NOTE | 2022-06-17 12:45 | P.OP ---
Date of Procedure: 06/17/22 Preoperative Diagnosis: Severe osteoarthritis left knee Postoperative Diagnosis: Severe osteoarthritis left knee Procedure(s) Performed: Left total knee arthroplasty Implants: [employer]hew Journey II CR Oxinium cruciate retaining femoral component size 7, left [employer] Journey nonporous tibial baseplate size 6, left [employer] Journey II, XLPE Deep Dished articular insert, size 9 mm, Size 5- 6, left [employer] Journey Sri II resurfacing patellar component, oval, 35 mm All components were cemented using Palacos R bone cement The articulation is Oxinium on polyethylene Anesthesia: spinal Surgeon: Brice Pike Apprentice Lineman Third Step #1: Maryanne Golden Estimated Blood Loss (ml): 50 Pathology: other (Bone and cartilage) Condition: stable Disposition: PACU Indications for Procedure: After failure of conservative treatment we discussed the surgical and nonsurgical treatment options at length. Patient wishes to proceed with a total knee arthroplasty. Complications specific to this procedure were discussed at length, including but not limited to infection, bleeding, stiffness, and nerve injury. Covid-19 was also discussed at length with the patient, and they are aware of the current policies and procedures. The patient was given the option of delaying surgery, but they elect to proceed knowing these risks. Patient is aware of all these complications and informed consent was obtained Operative Findings: The operative findings are consistent with severe osteoarthritis the left knee Description of Procedure: Patient was seen in the preoperative area and the consent was reviewed and the operative site was marked with a skin marker. The patient verified the procedure and the operative site. An adductor canal pain catheter and an iPACK block was placed by anesthesia in the preoperative area. The patient was then brought to the operating room and given preoperative antibiotics intravenously. A gram of transexamic acid was given intravenously. A spinal anesthetic was administered by the anesthesia department. A tourniquet was placed on the upper thigh and the lower extremity was prepped with chlorhexidine and draped in usual sterile fashion. A universal timeout was then performed which confirmed the patient's name, surgical site, ALLERGIES, and consent. The lower extremity was then exsanguinated and tourniquet was inflated to 250 mmHg. A standard anterior midline approach to the knee was performed. The skin and subcutaneous tissue were sharply dissected down to the patellar tendon. A medial parapatellar arthrotomy was then performed. The knee was then extended, the patellar was everted, and the knee was again flexed. The infra-patellar fat pad was removed in order to enhance exposure. The anterior horns of both menisci were excised, and a release was performed to the posterior medial aspect of the knee. On gross visual inspection, there was complete loss of articular cartilage in the medial and patellofemoral joint spaces. There was also significant cartilage damage in the lateral compartment. There were multiple periarticular osteophytes globally about the knee which were then removed with a Ronguer. The femoral canal was then opened with the 9.5 mm intramedullary drill. The 8 mm intramedullary fang was then inserted into the femoral canal with the distal femoral cutting guide set for 5 of valgus. The distal femoral cutting block was then pinned in place. The intramedullary fang was then removed, and the distal femur was then cut. The cutting block was then removed and the cut was checked for symmetry. The resected bone was then measured to confirm the appropriate distal femoral resection. Next, the sizing guide was then placed and set for 3 external rotation based off of the epicondylar axis and Whitesides line. Pins were then placed and the drill holes, and the femur was sized with the sizing stylus. The pins were then removed, and the sizing guide was then removed. The spikes of the femoral block was then placed into the predrilled holes, and malleted into place. Two 45 mm pins were then placed into the fixation holes on the cutting block. An shonna wing was then used to ensure there would be no notching with the anterior cut. The anterior condyles were cut without notching. The anterior chord cut was then performed, followed by the posterior cut, posterior chamfer cut, and the anterior chamfer cut. The collateral ligaments were protected during the entire process. The cutting block was then removed. Any remaining bone and osteophytes were removed from the femur with a Ronguer. The femoral canal was plugged with autologous bone. Attention was then directed to the tibia. The remaining ACL was removed with a Ronguer, and the tibia was then gently subluxed forward with a large bent knee retractor. Any remaining menisci were excised. The posterior lateral corner was cauterized in order to coagulate the lateral geniculate artery. The extra medullary tibial cutting guide was then placed, set for the appropriate rotation, slope, and depth of resection. The proximal tibia cutting guide was then pinned in place. Proximal tibia was then cut and sized. The femoral trial was placed. A narrow saw blade was then used to remove the anterior intracondylar femoral bone. The CR notch trial was then placed. The tibial trial was placed with the appropriate-sized insert. The knee was able to fully extend and flex to 130 and was stable throughout all range of motion. The knee was then extended and the patella was everted. Patella was then measured, and then using an osteotomy guide, the patella was cut at the appropriate level. The patella was then measured and drilled and the patella trial was then placed. The knee was then taken through range of motion with the patella trial and the patella tracked normally using the no thumbs technique. The knee was then extended patella trial was then removed and the patella was everted. Knee was then flexed and lug holes were drilled through the femoral trial and the femoral trial was then removed. The tibial was then re-exposed, and the tibial broach guide was then pinned in place after it was set for the appropriate rotation to allow for the most coverage without overhang. The tibia was then reamed and broached. The cut surfaces of bone were then irrigated with pulsatile lavage. The knee was also irrigated with Irrisept solution. The components were then opened, the cement was mixed, and the components were then cemented in place. The cement was allowed to harden with the knee in full extension. After the cemented hardened, the tourniquet was released and hemostasis was obtained. A second gram of transexamic acid was given intravenously. The knee was again irrigated. The knee was again taken through range of motion and found to be stable throughout all range of motion of 0-130, and the patella tracked normally. The fascia was then closed with 0 Vicryl followed by #2 strata fix suture. The subcutaneous tissue was closed with 3-0 Vicryl and 3-0 strata fix. Exofin glue was used for the skin and placed with the knee in flexion. After the glue had dried, and Optafoam silver impregnated dressing was applied. The patient was then transferred to recovery room in stable condition. The events and promotions assistant MUSA Rosa was required due the complexity surgery and the need for a skilled surgical resident. She assisted in positioning, draping, retraction, and closure of the wound.
--- NOTE | 2022-06-17 12:50 | P.ANPRN ---
Procedure Note - Anesthesia - Nerve Block Performed Left Adductor Canal Infusion Time Out Performed: Yes (1103) Date of Procedure: 06/17/22 Procedure Start Time: 11:04 Procedure Stop Time: 11:09 Location of Patient: PreOp Indication: Acute Post-Operative Pain, Requested by Surgeon Specifically requested for management of pain by DrSadiq: Brice Pike Sedation Type: Sedate with meaningful contact maintained Preparation: Sterile Prep, Sterile Dressing Position: Supine Catheter Depth at Skin (cm): 8 Catheter: Indwelling Needle Types: Pajunk Needle Gauge: 18 Ultrasound used to visualize needle placement: Yes Ultrasound used to observe medication spread: Yes Injectate: 0.5% Ropivacaine (see comment for volume) (15cc + 5cc nacl pf) Blood Aspirated: No Pain Paresthesia on Injection Noted: No Resistance on Injection: Normal Image Stored and Saved: Yes Events: Uneventful and Well Tolerated
--- NOTE | 2022-06-17 12:51 | P.ANPRN ---
Procedure Note - Anesthesia - Nerve Block Performed Left iPack Single Time Out Performed: Yes (1103) Date of Procedure: 06/17/22 Procedure Start Time: 11:10 Procedure Stop Time: 11:13 Indication: Acute Post-Operative Pain, Requested by Surgeon Specifically requested for management of pain by DrSadiq: Brice Pike Sedation Type: Sedate with meaningful contact maintained Preparation: Sterile Prep Position: Supine Catheter: None Needle Types: Pajunk Needle Gauge: 21 Ultrasound used to visualize needle placement: Yes Ultrasound used to observe medication spread: Yes Injectate: 0.5% Ropivacaine (see comment for volume) (15cc + 5cc nacl) Blood Aspirated: No Pain Paresthesia on Injection Noted: No Resistance on Injection: Normal Image Stored and Saved: Yes Events: Uneventful and Well Tolerated
[2022-06-17] MEDS ORDERED: HYDROmorphone 0.5 MG/0.5 ML SYRINGE IVP PRN (20:16)
[2022-06-17] MEDS ORDERED: ONDANSETRON 4 MG/2 ML VIAL IVP PRN (20:17)
[2022-06-17 20:28] LABS: Glucose,Whole Blood 106 mg/dL (70-110)
[2022-06-17] MEDS ORDERED: IPRATROPIUM 0.5 MG/2.5 ML NEBU INHALATION PRN (21:48)
[2022-06-17] MEDS: HYDROmorphone 1 MG/ML 1 ML SYRINGE IVP PRN (23:36)
[2022-06-17] MEDS ORDERED: ALPRAZolam 1 MG TAB PO SCH (23:40)
[2022-06-18] MEDS: HYDROmorphone 1 MG/ML 1 ML SYRINGE IVP PRN ×2 (05:00→08:21)
[2022-06-18] MEDS: traMADol 50 MG TAB PO PRN ×2 (05:58→11:31)
[2022-06-18 06:56] LABS: Glucose,Whole Blood 133 mg/dL (70-110)
[2022-06-18] MEDS: LACTATED RINGERS 1,000 ML IV SCH (07:23)
[2022-06-18] MEDS ORDERED: PANTOPRAZOLE 40 MG TABLET PO SCH (07:30)
[2022-06-18 07:33] VITALS: PULSE 52; RESP 13; TEMP 99.4
--- NOTE | 2022-06-18 07:44 | P.PN ---
Progress Note - Text Progress Note Date: 06/18/22 patient was seen and evaluated at bedside. Status post postoperative day 1 for left side total knee arthroplasty patient had adductor canal catheter for postop pain control. Patient rated pain at rest 6 out of 10 in severity. Patient describes pain is aching, throbbing type on the sides of the knee and back of the knee. Patient started walking with support. With activity patient pain levels are 7-8 out of 10 in severity. With the help of oral pain medications pain levels are tolerable. Patient denied any weakness/ numbness in lower extremities. patient denied any fever, pain over the catheter site. Physical exam: Patient vital signs stable Patient is alert awake oriented 3 responding to all questions appropriately Examination of the catheter site showed dressing intact, no leaking fluid around the catheter, no redness, no tenderness over the catheter insertion area. plan: status post postoperative day 1 for left total knee arthroplasty with adductor canal catheter for pain control. Patient was discussed to continue the medication at the rate of 8 mL per hour until the pump is completely empty and instructed the patient how to discontinue the catheter.
[2022-06-18] MEDS ORDERED: APIXABAN 5 MG TAB PO SCH (09:00)
[2022-06-18] MEDS ORDERED: SOTALOL 80 MG TAB PO SCH (09:00)
[2022-06-18] MEDS ORDERED: lisinopriL 10 MG TAB PO SCH (09:00)
[2022-06-18 10:34] VITALS: BP 124/62
[2022-06-18 11:30] LABS: Glucose,Whole Blood 199 mg/dL (70-110)
--- NOTE | 2022-06-18 11:39 | P.DS ---
Providers Date of admission: 06/18/22 07:58 Expected date of discharge: 06/18/22 Attending physician: Brice Pike Consults: 06/17/22 20:16 Consult Physician Routine Consulting Provider: Slade Arora Reason/Comments: medical management Do you want consulting provider notified?: Already Contacted Primary care physician: Slade Arora - Discharge Diagnosis(es) (1) Status post total knee replacement, left Current Visit: Yes Status: Acute (2) Osteoarthritis of left knee Current Visit: Yes Status: Acute Hospital Course: This is a 62-year-old male who was last seen in our office with complaint of continued left knee pain. He has a known history of degenerative arthritis of the left knee and presented to discuss surgical options. After discussion and consideration the patient elects to proceed with total left knee arthroplasty. He is seen preoperatively by his primary care physician and cleared for surgery. The patient is taken to surgery on 06/17/2022 for total left knee arthroplasty. The procedure is performed without complication or sequelae. The patient is doing well postoperatively. Vital signs are stable on postop day #1. The patient is discharged to home in good condition. Please see med rec for accurate list of home medications. Patient Condition at Discharge: Good Plan - Discharge Summary Discharge Rx Participant: Yes New Discharge Prescriptions: New Sennosides-Docusate Sodium [Senokot-S] 1 tab PO BID #60 tablet traMADol HCl [Ultram] 100 mg PO Q6HR PRN #28 tab PRN Reason: Pain Ondansetron Odt [Zofran Odt] 4 mg PO Q8HR PRN #14 tab PRN Reason: Nausea No Action Sotalol [Betapace] 80 mg PO BID Omeprazole 40 mg PO DAILY traMADol HCL [Ultram] 100 mg PO QID PRN PRN Reason: Pain ALPRAZolam [Xanax] 1 mg PO HS lisinopriL [Prinivil] 10 mg PO DAILY Dulaglutide [Trulicity] 0.75 mg SQ MARTINEZ Lovenox(Unknown Dose) SQ DIRECTED Atorvastatin [Lipitor] 40 mg PO HS Apixaban [Eliquis] 5 mg PO BID Umeclidinium [place] [Incruse Ellipta] 1 puff INHALATION RT-DAILY PRN PRN Reason: Shortness Of Breath Discharge Medication List Omeprazole 40 mg PO DAILY 09/27/14 [History] Sotalol [Betapace] 80 mg PO BID 09/27/14 [History] traMADol HCL [Ultram] 100 mg PO QID PRN 09/25/16 [History] ALPRAZolam [Xanax] 1 mg PO HS 11/10/17 [History] Apixaban [Eliquis] 5 mg PO BID 05/30/21 [History] Atorvastatin [Lipitor] 40 mg PO HS 05/30/21 [History] Dulaglutide [Trulicity] 0.75 mg SQ MARTINEZ 05/30/21 [History] lisinopriL [Prinivil] 10 mg PO DAILY 05/30/21 [History] Umeclidinium [place] [Incruse Ellipta] 1 puff INHALATION RT-DAILY PRN 07/10/21 [History] Lovenox(Unknown Dose) SQ DIRECTED 06/13/22 [History] Ondansetron Odt [Zofran Odt] 4 mg PO Q8HR PRN #14 tab 06/18/22 [Rx] Sennosides-Docusate Sodium [Senokot-S] 1 tab PO BID #60 tablet 06/18/22 [Rx] traMADol HCl [Ultram] 100 mg PO Q6HR PRN #28 tab 06/18/22 [Rx] Follow up Appointment(s)/Referral(s): Brice Pike DO [Doctor of Osteopathic Medicine] - 06/30/22 2:00 pm Patient Instructions/Handouts: Laxative, Stimulant (By mouth), Tramadol (By mouth), Ondansetron (By mouth), Knee Arthroscopy (DC) Activity/Diet/Wound Care/Special Instructions: Dressing to stay intact for 7 days and then may be removed by yourself or by home care. May shower with dressing intact. If dressing becomes saturated please remove. May bear weight as tolerated with walker. Resume Eliquis. Please wear compression stockings during the day until follow up appointment. May remove at night. Please follow up with [facility] and call with any questions or concerns, . Discharge Disposition: HOME WITH HOME HEALTH SERVICES
[2022-06-18] MEDS ORDERED: ALPRAZolam 1 MG TAB PO SCH (21:00)
[2022-06-18] MEDS ORDERED: ATORVASTATIN 40 MG TAB PO SCH (21:00)
--- NOTE | 2022-06-19 14:16 | XR ---
Limited left knee HISTORY: Pain, postop 2 views the left knee Patient is status post left knee arthroplasty. There is anatomic alignment. Lucencies present within the soft tissues consistent with postop state. IMPRESSION: Orthopedic follow-up
== END 2022-06-18 12:38 | disposition home health service (06) ==
LOC: OR 09:49 → 4SSUR 13:20 → OR 06-18 07:58 → 4SSUR 06-18 07:58
PROVIDERS: ADMIT Orthopaedic Surgery; ATTEND Orthopaedic Surgery
DX: M17.12 Unilateral primary osteoarthritis, left knee (principal); I11.9 Hypertensive heart disease without heart failure; E11.9 Type 2 diabetes mellitus without complications; Z95.0 Presence of cardiac pacemaker; K21.9 Gastro-esophageal reflux disease without esophagitis; E78.5 Hyperlipidemia, unspecified; I48.0 Paroxysmal atrial fibrillation; Z87.891 Personal history of nicotine dependence; I44.30 Unspecified atrioventricular block; Z86.711 Personal history of pulmonary embolism; J44.9 Chronic obstructive pulmonary disease, unspecified; Z86.718 Personal history of other venous thrombosis and embolism; Z83.3 Family history of diabetes mellitus; Z82.49 Family history of ischemic heart disease and other diseases of the circulatory system; Z79.51 Long term (current) use of inhaled steroids; Z79.899 Other long term (current) drug therapy; Z79.891 Long term (current) use of opiate analgesic; Z79.01 Long term (current) use of anticoagulants; Z88.3 Allergy status to other anti-infective agents
CPT/HCPCS: 27447; 97161; 64999; 64448; 76942; 88300; 73560; G0378; C1713; C1776; J2250; J3370; J2405; J0690; J3010; J1170 ×3; J2795; J2370; J2704

== ENCOUNTER → 2022-09-03 | Outpatient (CLI) | payer MEDICARE ==
--- NOTE | 2022-09-03 15:17 | CT ---
EXAMINATION TYPE: CT abdomen wo con CT DLP: 219.7 mGycm, Automated exposure control for dose reduction was used. DATE OF EXAM: 09/03/2022 3:04 PM COMPARISON: CT abdomen pelvis 05/01/2021 CLINICAL INDICATION:Male, 62 years old with history of J44.9 COPD,R10.84; unexplained weight loss, lo ss of appetite. TECHNIQUE: Axial CT of the abdomen . Sagittal and coronal reformats were created on a separate works tation. Contrast used: None Oral contrast used: without Oral Contrast FINDINGS: LOWER CHEST: Unremarkable ABDOMEN LIVER: Unremarkable GALLBLADDER AND BILE DUCTS: Gallstone in the gallbladder PANCREAS: Unremarkable. SPLEEN: Unremarkable. ADRENAL GLANDS: Unchanged left adrenal lipid rich adenoma. Residual glands unremarkable. KIDNEYS AND URETERS: No evidence of hydronephrosis or renal calculus. The ureters are unremarkable. PELVIS BLADDER: Unremarkable REPRODUCTIVE: Unremarkable. ABDOMEN & PELVIS STOMACH AND BOWEL: No evidence of bowel obstruction. PERITONEUM: No evidence of pneumoperitoneum or free fluid. VASCULATURE: No evidence of aortic aneurysm. MUSCULOSKELETAL: No acute osseous abnormalities, multilevel disc degeneration changes throughout the spine. LYMPH NODES: No gross evidence for lymphadenopathy. SOFT TISSUE/ABDOMINAL WALL: Unremarkable IMPRESSION: 1. No evidence for acute intraluminal process. 2. Unchanged left adrenal lipid rich adenoma. 3. Cholelithiasis.
== END | disposition home or self-care (01) ==
LOC: RADCTMAIN 14:41
PROVIDERS: ATTEND Family Medicine
DX: D35.02 Benign neoplasm of left adrenal gland (principal); K80.20 Calculus of gallbladder without cholecystitis without obstruction; J44.9 Chronic obstructive pulmonary disease, unspecified; R10.84 Generalized abdominal pain
CPT/HCPCS: 74150

== ENCOUNTER 2022-10-02 06:57 | Day surgery (SDC) | payer MEDICARE ==
[2022-10-01 10:40] VITALS: BMI 23.0
[~2022-10-02 06:57] MED LIST changes: -ACETAMINOPHEN TAB 500 MG TAB PO PRN; -GABAPENTIN 300 MG CAP PO PRN; -HYDROmorphone 0.5 MG/0.5 ML SYRINGE IVP PRN; +LACTATED RINGERS 1,000 ML IV SCH; -LIDOCAINE 1% (10MG/ML) FOR IV START INTRADERMA PRN; -MELOXICAM 7.5 MG TAB PO PRN; -ONDANSETRON 4 MG/2 ML VIAL IVP ONE; -TRANEXAMIC ACID IN NACL,ISO-OS 1,000 MG in SALINE 1 100ML.BAG IVPB PRN
[2022-10-02 07:34] LABS: Glucose,Whole Blood 93 mg/dL (70-110)
[2022-10-02 07:37] VITALS: TEMP 97.9
[2022-10-02] MEDS ORDERED: PROPOFOL 10 MG/ML 20 ML VIAL IV ONE (07:40)
--- NOTE | 2022-10-02 07:45 | P.GSHP ---
History of Present Illness H&P Date: 10/02/22 Chief Complaint: GI bleed, GERD This a 62-year-old male presents today for EGD and colonoscopy. Patient is issues with GI bleed and GERD. Past Medical History Past Medical History: Atrial Fibrillation, COPD, Diabetes Mellitus, Deep Vein Thrombosis (DVT), GERD/Reflux, Hyperlipidemia, Hypertension, Pulmonary Embolus (PE) Additional Past Medical History / Comment(s): Hx gibson's esophagus. CELLULITIS TO BILAT FEET-NONE AT THIS TIME, Multiple pulmonary embolisms (2014), pacemaker dependent. Emphysema. History of Any Multi-Drug Resistant Organisms: None Reported Past Surgical History: Cardiac Ablation, Joint Replacement, Orthopedic Surgery, Pacemaker Additional Past Surgical History / Comment(s): pacemaker(2000), 2006; pacemaker battery replaced 2017-ORIGINAL ONE TURNED OFF. Rt knee replacement, right ankle surgery, colonoscopy, EGD. Fluoroscopy leads 06/04/21, LT TKA 06/18/22, HAS MICRO PACEMAKER AT BOTTOM AT HEART PLACED AT [facility]-08/2021 Past Anesthesia/Blood Transfusion Reactions: No Reported Reaction Type of Cardiac Device: Permanent Pacemaker Device Placement Date:: 2000, 08/2021 Past Psychological History: No Psychological Hx Reported Smoking Status: Former smoker Past Alcohol Use History: None Reported Additional Past Alcohol Use History / Comment(s): QUIT SMOKING 1995, 1PPD. Past Drug Use History: None Reported - Past Family History Father Additional Family Medical History / Comment(s): CABG x4 Mother Family Medical History: Cancer, Deep Vein Thrombosis (DVT) Additional Family Medical History / Comment(s): CABG x4, defib pacemaker , blood disorder, Medications and Allergies Home Medications Medication Instructions Recorded Confirmed Type Omeprazole 40 mg PO DAILY 09/27/14 10/01/22 History Sotalol [Betapace] 80 mg PO BID 09/27/14 10/01/22 History ALPRAZolam [Xanax] 1 mg PO HS 11/10/17 10/01/22 History Apixaban [Eliquis] 5 mg PO BID 05/30/21 10/01/22 History Atorvastatin [Lipitor] 40 mg PO HS 05/30/21 10/01/22 History Dulaglutide [Trulicity] 0.75 mg SQ MARTINEZ 05/30/21 10/01/22 History lisinopriL [Prinivil] 10 mg PO DAILY 05/30/21 10/01/22 History Umeclidinium [place] [Incruse 1 puff INHALATION RT-DAILY PRN 07/10/21 10/01/22 History Ellipta] traMADol HCl [Ultram] 100 mg PO Q6HR PRN #28 tab 06/18/22 10/01/22 Rx Allergies Allergy/AdvReac Type Severity Reaction Status Date / Time bacitracin Allergy Unknown Verified 10/01/22 10:29 [From Neosporin ([id number])] bacitracin zinc Allergy Unknown Verified 10/01/22 10:29 [From Neosporin ([id number])] neomycin sulfate Allergy Unknown Verified 10/01/22 10:29 [From Neosporin ([id number])] polymyxin B Allergy Unknown Verified 10/01/22 10:29 [From Neosporin ([id number])] Surgical - Exam Vital Signs Temp Pulse Resp BP Pulse Ox 97.9 F 51 L 20 149/83 98 10/02/22 07:18 10/02/22 07:18 10/02/22 07:18 10/02/22 07:18 10/02/22 07:18 - General well developed, well nourished, no distress - Eyes PERRL - ENT normal pinna - Neck no masses - Respiratory normal expansion - Cardiovascular Rhythm: regular - Abdomen Abdomen: soft, non tender - Rectum Rectum: normal sphincter tone - Integumentary no rash - Neurologic normal coordination Assessment and Plan Assessment: GI bleed, GERD. We'll perform colonoscopy and EGD.
--- NOTE | 2022-10-02 08:05 | P.OP ---
Date of Procedure: 10/02/22 Preoperative Diagnosis: GERD GI bleed Postoperative Diagnosis: Antral gastritis Moderate size sliding hiatal hernia Esophagitis External hemorrhoids Procedure(s) Performed: EGD Colonoscopy Anesthesia: MAC Surgeon: Hola Bean Pathology: other (Antrum, esophagus) Condition: stable Disposition: PACU Description of Procedure: The patient's placed on the endoscopy table in the lateral position. He received IV sedation. The gastroscope placed oropharynx passed in the esophagus and stomach. Scope was then placed through the pylorus. The first and second portion of the duodenum appeared normal. Scope was then brought back the antrum this was minimal inflamed. A biopsies performed. The scope was then retroflexed and the remainder of the stomach appeared normal. The patient had a moderate size sliding hiatal hernia. The GE junction was at 37 cm. The distal esophagus appeared inflamed. A biopsies performed. The proximal esophagus appeared normal. Scope was withdrawn for patient. Next digital rectal exam was performed. This revealed external hemorrhoids. The flexible colonoscope was then placed patient anus and passed throughout the entire colon. The ileocecal valve was visualized. The cecum, ascending and transverse colon appeared normal. The descending and sigmoid colon appeared normal. Scope was brought back the rectum and this appeared normal. Scope withdrawn for patient. The external hemorrhoids are noted. Scope was withdrawn. The There is no evidence of any GI bleed. Presumed patient may have had bleeding from hemorrhoids.
[2022-10-02 08:26] VITALS: RESP 16
[2022-10-02 08:27] VITALS: BP 126/86; PULSE 80
== END 2022-10-02 08:49 | disposition home or self-care (01) ==
LOC: ORWHC2ENDO 06:57
PROVIDERS: ATTEND Surgery
DX: K29.50 Unspecified chronic gastritis without bleeding (principal); K64.4 Residual hemorrhoidal skin tags; K21.00 Gastro-esophageal reflux disease with esophagitis, without bleeding; K44.9 Diaphragmatic hernia without obstruction or gangrene; I48.91 Unspecified atrial fibrillation; J44.9 Chronic obstructive pulmonary disease, unspecified; E11.9 Type 2 diabetes mellitus without complications; E78.5 Hyperlipidemia, unspecified; I10 Essential (primary) hypertension; Z86.718 Personal history of other venous thrombosis and embolism; Z86.711 Personal history of pulmonary embolism; Z98.890 Other specified postprocedural states; Z95.0 Presence of cardiac pacemaker; Z96.653 Presence of artificial knee joint, bilateral; Z87.891 Personal history of nicotine dependence; Z82.49 Family history of ischemic heart disease and other diseases of the circulatory system; Z79.01 Long term (current) use of anticoagulants; Z79.1 Long term (current) use of non-steroidal anti-inflammatories (NSAID); Z79.899 Other long term (current) drug therapy; Z88.1 Allergy status to other antibiotic agents; Z88.8 Allergy status to other drugs, medicaments and biological substances
CPT/HCPCS: 88305; 43239; J2704; G0121; 45378

== ENCOUNTER → 2022-11-04 | Outpatient (CLI) | payer MEDICARE ==
[2022-11-04 18:28] LABS: Basophils # (A) 0.08 X 10*3/uL (0.00-0.10); Basophils % (A) 1.2 %; Eosinophils # (A) 0.18 X 10*3/uL (0.04-0.35); Eosinophils % (A) 2.8 %; HGB 13.8 g/dL (13.0-17.0); Immature Grans, Automated 0.3 %; Lymphocytes # (A) 2.42 X 10*3/uL (0.90-5.00); Lymphocytes % (A) 37.1 %; MCH 28.5 pg (27.0-32.0); MCHC 32.1 g/dL (32.0-37.0); MCV 88.7 fL (80.0-97.0); Mean Platelet Volume 10.3 fL (9.5-12.2); Monocytes # (A) 0.76 X 10*3/uL (0.20-1.00); Monocytes % (A) 11.6 %; NRBC Per 100 WBC 0 /100 WBCS (0.0-0.0); Neutrophils # (A) 3.07 X 10*3/uL (1.80-7.70); Platelet Count 172 X 10*3/uL (140-440); RBC 4.85 X 10*6/uL (4.40-5.60); RDW 13.8 % (11.5-14.5); WBC 6.53 X 10*3/uL (4.50-10.00)
== END | disposition home or self-care (01) ==
LOC: LABPAT 10:54
PROVIDERS: ATTEND Surgery
DX: Z01.818 Encounter for other preprocedural examination (principal); Z53.9 Procedure and treatment not carried out, unspecified reason
CPT/HCPCS: 85025; 93005

== ENCOUNTER 2022-11-10 07:16 | Observation (INO) | payer MEDICARE ==
[~2022-11-10 07:16] MED LIST changes: +ACETAMINOPHEN TAB 500 MG TAB PO PRN; +DEXAMETHASONE SOD PHOSPHATE 4 MG/ML 1 ML VIAL IV ONE; +HEPARIN SODIUM,PORCINE/PF 5,000 UNIT/0.5 ML SYRINGE SQ PRN; -LACTATED RINGERS 1,000 ML IV SCH; +LIDOCAINE 1% (10MG/ML) FOR IV START INTRADERMA PRN; +MIDAZOLAM 2 MG/2 ML VIAL IV PRN; +ONDANSETRON 4 MG/2 ML VIAL IVP ONE
[2022-11-10] MEDS: LACTATED RINGERS 1,000 ML IV SCH (08:15)
[2022-11-10 08:26] LABS: Glucose,Whole Blood 110 mg/dL (70-110)
--- NOTE | 2022-11-10 09:30 | P.GSHP ---
Past Medical History Past Medical History: Atrial Fibrillation, COPD, Diabetes Mellitus, Deep Vein Thrombosis (DVT), GERD/Reflux, Hyperlipidemia, Hypertension, Pulmonary Embolus (PE) Additional Past Medical History / Comment(s): Hx gibson's esophagus. CELLULITIS TO BILAT FEET-NONE AT THIS TIME, Multiple pulmonary embolisms (2014), pacemaker dependent. Emphysema. History of Any Multi-Drug Resistant Organisms: None Reported Past Surgical History: Cardiac Ablation, Joint Replacement, Orthopedic Surgery, Pacemaker Additional Past Surgical History / Comment(s): pacemaker(2000), 2006; pacemaker battery replaced 2017-ORIGINAL ONE TURNED OFF. Rt knee replacement, right ankle surgery, colonoscopy, EGD. Fluoroscopy leads 06/04/21, LT TKA 06/18/22, HAS MICRO PACEMAKER AT BOTTOM AT HEART PLACED AT [facility]-08/2021 Past Anesthesia/Blood Transfusion Reactions: No Reported Reaction Type of Cardiac Device: Permanent Pacemaker Device Placement Date:: 2000, 08/2021 Smoking Status: Former smoker - Past Family History Father Additional Family Medical History / Comment(s): CABG x4 Mother Family Medical History: Cancer, Deep Vein Thrombosis (DVT) Additional Family Medical History / Comment(s): CABG x4, defib pacemaker , blood disorder, Medications and Allergies Home Medications Medication Instructions Recorded Confirmed Type Omeprazole 40 mg PO DAILY 09/27/14 11/10/22 History Sotalol [Betapace] 80 mg PO BID 09/27/14 11/10/22 History ALPRAZolam [Xanax] 1 mg PO HS 11/10/17 11/10/22 History Apixaban [Eliquis] 5 mg PO BID 05/30/21 11/10/22 History Atorvastatin [Lipitor] 40 mg PO HS 05/30/21 11/10/22 History Dulaglutide [Trulicity] 0.75 mg SQ MARTINEZ 05/30/21 11/10/22 History lisinopriL [Prinivil] 10 mg PO DAILY 05/30/21 11/10/22 History Umeclidinium [place] [Incruse 1 puff INHALATION RT-DAILY PRN 07/10/21 11/10/22 History Ellipta] traMADol HCl [Ultram] 100 mg PO Q6HR PRN #28 tab 06/18/22 11/10/22 Rx Clotrimazole/Betamethasone Dip 1 applic TOPICAL BID 11/07/22 11/10/22 History [Clotrimazole-Betamethasone Lot] Allergies Allergy/AdvReac Type Severity Reaction Status Date / Time bacitracin Allergy Unknown Verified 11/10/22 07:55 [From Neosporin ([id number])] bacitracin zinc Allergy Unknown Verified 11/10/22 07:55 [From Neosporin ([id number]-eap-[id number])] neomycin sulfate Allergy Unknown Verified 11/10/22 07:55 [From Neosporin ([id number]-szo-udswl)] polymyxin B Allergy Unknown Verified 11/10/22 07:55 [From Neosporin ([id number])] Surgical - Exam Vital Signs Temp Pulse Resp BP Pulse Ox 97.4 F L 65 16 147/89 98 11/10/22 08:15 11/10/22 08:15 11/10/22 08:15 11/10/22 08:15 11/10/22 08:15 Assessment and Plan Plan: The patient is scheduled for laparoscopic Juana fundal plication today. This is an addendum to the previously dictated H&P found and the report section.
[2022-11-10] MEDS ORDERED: LIDOCAINE 4% LTA KIT (4 ML) TOPICAL ONE (09:50)
[2022-11-10] MEDS ORDERED: PROPOFOL 10 MG/ML 20 ML VIAL IV ONE (09:50)
[2022-11-10] MEDS ORDERED: SUCCINYLCHOLINE CHLORIDE 200 MG/10 ML VIAL IV ONE (09:50)
[2022-11-10] MEDS ORDERED: MIDAZOLAM 2 MG/2 ML VIAL ONE (09:50)
[2022-11-10] MEDS ORDERED: KETOROLAC 15 MG/ML 1 ML VIAL ONE (09:50)
[2022-11-10] MEDS ORDERED: KETAMINE 10 MG/ML 20 ML VIAL ONE (09:50)
[2022-11-10] MEDS ORDERED: fentaNYL (PF) 50 MCG/ML 2 ML AMP ONE (09:50)
[2022-11-10] MEDS ORDERED: GLYCOPYRROLATE 0.2 MG/ML 2 ML VIAL ONE (09:50)
[2022-11-10] MEDS ORDERED: NEOSTIGMINE 1 MG/ML 10 ML VIAL ONE (09:50)
[2022-11-10] MEDS ORDERED: LIDOCAINE 2% INJ 20 MG/ML (2 ML VIAL) ONE (09:50)
[2022-11-10] MEDS ORDERED: ePHEDrine 50 MG/ML 1 ML VIAL ONE (09:50)
[2022-11-10] MEDS ORDERED: ROCURONIUM 10 MG/ML (5 ML VIAL) IV ONE (09:50)
[2022-11-10] MEDS ORDERED: BUPIVACAIN-EPI 0.25%-1:200,000 30 ML VIAL SQ ONE (10:34)
[2022-11-10] MEDS ORDERED: LACTATED RINGERS 1,000 ML IV ONE (11:00)
[2022-11-10] MEDS ORDERED: ONDANSETRON 4 MG/2 ML VIAL IVP PRN (11:16)
[2022-11-10] MEDS: HYDROmorphone 0.5 MG/0.5 ML SYRINGE IVP PRN ×2 (11:16→11:36)
--- NOTE | 2022-11-10 11:16 | P.OP ---
Date of Procedure: 11/10/22 Preoperative Diagnosis: GERD Postoperative Diagnosis: GERD Procedure(s) Performed: Laparoscopic Juana fundal plication Anesthesia: DANIEL Surgeon: Hola Bean Estimated Blood Loss (ml): 5 Pathology: none sent Condition: stable Disposition: PACU Description of Procedure: HThe patient was placed on the operating table in the supine position. The patient received general anesthesia. And was placed in dorsal lithotomy position. The patient was prepped and draped in the usual sterile fashion. The skin incision sites were anesthetized with 1% local Xylocaine. The skin was incised in the left periumbilical area and then using a blade less 5 mm trocar under direct visualization panel cavity was entered. After adequate insufflation the laparoscope was then placed into the peritoneal cavity. Next a 5 mm trochars placed in the right epigastric position. Another 5 millimeter trocar the right lateral position. Another 5 millimeter trocar in the left lateral position a 5 mm trocar is placed in the left epigastric position. And then the initial 5 mm trocar was exchanged for a 10 mm trocar. The left lateral lobe liver was retracted. The hernia was seen. The crural defect was then dissected using the Harmonic scissors device. A 360 crural dissection was performed the esophagus stomach was reduced back into the peritoneal Cavity. The crural defect was then closed using 2-0 Ethibond suture. Next the fundus of the stomach was mobilized using the Harrah scissors device. and then a 58- Ecuadorean bougie dilator was placed oropharynx passed into the esophagus and stomach the fundal plication wrap was then performed by grasping the fundus posteriorly and bringing it around the esophagus and stomach fundoplication was then performed using 2-0 Ethibond suture. Care was taken that the fundal location rested over top of the intra-abdominal esophagus. There was no injury seen to the stomach or esophagus. The dilator was then withdrawn. The abdomen was irrigated there is no bleeding seen. The trochars were then withdrawn and then skin incision sites were closed using 3-0 Monocryl suture Steri-Strips are applied. Patient thought procedure well and sent to recovery room in stable condition.
[2022-11-10] MEDS: METOCLOPRAMIDE 5 MG/ML 2 ML VIAL IVP SCH ×2 (13:05→18:24)
[2022-11-10] MEDS: D5-0.45% NACL WITH KCL 20MEQ/L 1,000 ML IV SCH ×2 (13:10→20:59)
[2022-11-10] MEDS: HYDROmorphone 1 MG/ML 1 ML SYRINGE IVP PRN ×3 (13:12→22:47)
[2022-11-10 14:09] VITALS: BMI 22.9
--- NOTE | 2022-11-10 16:12 | XR ---
EXAMINATION TYPE: XR chest 1V portable DATE OF EXAM: 11/10/2022 COMPARISON: Chest CT April 02, 2021. Most recent abdominal CT September 03, 2022 HISTORY: Chest pain and shortness of breath TECHNIQUE: Single AP portable frontal upright view of the chest is obtained. FINDINGS: Background chronic emphysematous changes are redemonstrated. There is no suspicious focal air space opacity, pleural effusion, or pneumothorax seen. The cardiac silhouette size is stable and within normal limits. Dual-lead pacemaker redemonstrated. The osseous structures are intact. No bhanu e air is present. Radiodense device just superior to the right ventricular pacemaker lead of uncertai n etiology presumed external to patient. Correlate clinically. IMPRESSION: New free air. Patient has history of Dariusz fundoplication surgery earlier today. This m akes this nonspecific finding. Chronic changes redemonstrated. No acute pulmonary infiltrate seen.
[2022-11-10 16:35] LABS: Basophils % (A) 0 %; Eosinophils % (A) 0 %; HCT 41.5 % (39.0-53.0); HGB 13.6 gm/dL (13.0-17.5); Lymphocytes # (A) 0.9 k/uL (1.0-4.8); Lymphocytes % (A) 9 %; MCH 28.4 pg (25.0-35.0); MCHC 32.7 g/dL (31.0-37.0); MCV 86.8 fL (80.0-100.0); Mean Platelet Volume 7.6; Monocytes # (A) 0.3 k/uL (0-1.0); Monocytes % (A) 3 %; Neutrophils % (A) 88 %; Platelet Count 141 k/uL (150-450); RBC 4.79 m/uL (4.30-5.90); RDW 13.2 % (11.5-15.5); WBC 10.3 k/uL (3.8-10.6)
[2022-11-10 16:42] LABS: African American GFR (CKD) >90 (>60 ml/min/1.73 sqM); Anion Gap 5 mmol/L; Blood Urea Nitrogen 13 mg/dL (9-20); Calcium 8.8 mg/dL (8.4-10.2); Carbon Dioxide 28 mmol/L (22-30); Chloride 102 mmol/L (98-107); Glucose 214 mg/dL (74-99); Non-African American GFR(CKD) >90 (>60 ml/min/1.73 sqM); Potassium 3.8 mmol/L (3.5-5.1); Sodium 135 mmol/L (137-145)
[2022-11-10] MEDS ORDERED: IPRATROPIUM 0.5 MG/2.5 ML NEBU INHALATION PRN (16:54)
--- NOTE | 2022-11-10 16:59 | P.CONS ---
History of Present Illness - History of Present Illness Patient is admitted for an elective Juana's fundoplication patient's oxacillin underwent surgery patient is comparing of pain when he takes deep breath and unable to tolerate much of the liquids at this time. Patient is otherwise clinically doing well. Patient has multiple other medical problems. REVIEW OF SYSTEMS: CONSTITUTIONAL: No fever, no malaise, no fatigue. HEENT: No recent visual problems or hearing problems. Denied any sore throat. CARDIOVASCULAR: No chest pain, orthopnea, PND, no palpitations, no syncope. PULMONARY: No shortness of breath, no cough, no hemoptysis. GASTROINTESTINAL: No diarrhea. NEUROLOGICAL: No headaches, no weakness, no numbness. HEMATOLOGICAL: Denies any bleeding or petechiae. GENITOURINARY: Denies any burning micturition, frequency, or urgency. MUSCULOSKELETAL/RHEUMATOLOGICAL: Denies any joint pain, swelling, or any muscle pain. ENDOCRINE: Denies any polyuria or polydipsia. The rest of the 14-point review of systems is negative. PHYSICAL EXAMINATION: GENERAL: The patient is alert and oriented x3, not in any acute distress. Well developed, well nourished. HEENT: Pupils are round and equally reacting to light. EOMI. No scleral icterus. No conjunctival pallor. Normocephalic, atraumatic. No pharyngeal erythema. No thyromegaly. CARDIOVASCULAR: S1 and S2 present. No murmurs, rubs, or gallops. PULMONARY: Chest is clear to auscultation, no wheezing or crackles. ABDOMEN: Soft, nontender, nondistended, normoactive bowel sounds. No palpable organomegaly. MUSCULOSKELETAL: No joint swelling or deformity. EXTREMITIES: No cyanosis, clubbing, or pedal edema. NEUROLOGICAL: Gross neurological examination did not reveal any focal deficits. SKIN: No rashes. Assessment and plan -Abdominal pain and pain on deep breathing secondary to Juana's fundoplication. Pain management, patient still to continue with incentive spirometry. -Type 2 diabetes mellitus for which patient will be started on sliding scale i nsulin hold off on home regimen -COPD without any acute exacerbation -Atrial fibrillation paroxysmal presently rate controlled, Eliquis is being held by general surgery, patient need to be started on anticoagulation. -History of DVT in the past Gastroesophageal esophageal reflux disease -Hyperlipidemia -Hypertension DVT prophylaxis: As per primary service need to be started on anticoagulation as soon as we can Past Medical History Past Medical History: Atrial Fibrillation, COPD, Diabetes Mellitus, Deep Vein Thrombosis (DVT), GERD/Reflux, Hyperlipidemia, Hypertension, Pulmonary Embolus (PE) Additional Past Medical History / Comment(s): Hx gibson's esophagus. CELLULITIS TO BILAT FEET-NONE AT THIS TIME, Multiple pulmonary embolisms (2014), pacemaker dependent. Emphysema. History of Any Multi-Drug Resistant Organisms: None Reported Past Surgical History: Cardiac Ablation, Joint Replacement, Orthopedic Surgery, Pacemaker Additional Past Surgical History / Comment(s): pacemaker(2000), 2006; pacemaker battery replaced 2017-ORIGINAL ONE TURNED OFF. Rt knee replacement, right ankle surgery, colonoscopy, EGD. Fluoroscopy leads 06/04/21, LT TKA 06/18/22, HAS MICRO PACEMAKER AT BOTTOM AT HEART PLACED AT [facility]-08/2021 Past Anesthesia/Blood Transfusion Reactions: No Reported Reaction Type of Cardiac Device: Permanent Pacemaker Device Placement Date:: 2000, 08/2021 Smoking Status: Former smoker - Past Family History Father Additional Family Medical History / Comment(s): CABG x4 Mother Family Medical History: Cancer, Deep Vein Thrombosis (DVT) Additional Family Medical History / Comment(s): CABG x4, defib pacemaker , blood disorder, Medications and Allergies Home Medications Medication Instructions Recorded Confirmed Type Omeprazole 40 mg PO DAILY 09/27/14 11/10/22 History Sotalol [Betapace] 80 mg PO BID 09/27/14 11/10/22 History ALPRAZolam [Xanax] 1 mg PO HS 11/10/17 11/10/22 History Apixaban [Eliquis] 5 mg PO BID 05/30/21 11/10/22 History Atorvastatin [Lipitor] 40 mg PO HS 05/30/21 11/10/22 History Dulaglutide [Trulicity] 0.75 mg SQ MARTINEZ 05/30/21 11/10/22 History lisinopriL [Prinivil] 10 mg PO DAILY 05/30/21 11/10/22 History Umeclidinium [place] [Incruse 1 puff INHALATION RT-DAILY PRN 07/10/21 11/10/22 History Ellipta] traMADol HCl [Ultram] 100 mg PO Q6HR PRN #28 tab 06/18/22 11/10/22 Rx Clotrimazole/Betamethasone Dip 1 applic TOPICAL BID 11/07/22 11/10/22 History [Clotrimazole-Betamethasone Lot] Allergies Allergy/AdvReac Type Severity Reaction Status Date / Time bacitracin Allergy Unknown Verified 11/10/22 07:55 [From Neosporin ([id number]-miz-[id number])] bacitracin zinc Allergy Unknown Verified 11/10/22 07:55 [From Neosporin (dyq-ezu-[id number])] neomycin sulfate Allergy Unknown Verified 11/10/22 07:55 [From Neosporin (goe-fje-wldoc)] polymyxin B Allergy Unknown Verified 11/10/22 07:55 [From Neosporin ([id number]-rij-[id number])] Physical Exam Vitals: Vital Signs Temp Pulse Resp BP Pulse Ox 11/10/22 15:27 63 18 139/82 97 11/10/22 14:27 61 16 135/78 93 L 11/10/22 13:57 65 18 135/78 95 11/10/22 13:27 61 16 137/81 93 L 11/10/22 13:12 55 L 16 152/87 96 11/10/22 12:57 65 18 146/86 95 11/10/22 12:30 55 L 16 157/80 95 11/10/22 12:00 58 L 16 146/75 97 11/10/22 11:45 53 L 16 150/75 100 11/10/22 11:30 59 L 16 148/69 100 11/10/22 11:15 62 16 166/79 100 11/10/22 11:09 97.4 F L 59 L 16 177/79 100 11/10/22 08:15 97.4 F L 65 16 147/89 98 Intake and Output 11/10/22 11/10/22 11/10/22 06:59 14:59 22:59 Intake Total 1250 Output Total 25 Balance 1225 Intake: IV 1250 Output: Estimated Blood Loss 25 Other: Weight 81.1 kg Results CBC & Chem 7: 11/10/22 16:07 11/10/22 16:07 Labs: Abnormal Lab Results - Last 24 Hours (Table) 11/10/22 11/10/22 Range/Units 16:07 16:07 Plt Count 141 L (150-450) k/uL Neutrophils # 9.0 H (1.3-7.7) k/uL Lymphocytes # 0.9 L (1.0-4.8) k/uL Sodium 135 L (137-145) mmol/L Creatinine 0.64 L (0.66-1.25) mg/dL Glucose 214 H (74-99) mg/dL
[2022-11-10 17:07] LABS: Glucose,Whole Blood 214 mg/dL (70-110)
[2022-11-10] MEDS: INSULIN ASPART (NovoLOG) 100 UNIT/ML VIAL SQ SCH ×2 (18:24→20:57)
[2022-11-10 20:19] LABS: Glucose,Whole Blood 242 mg/dL (70-110)
[2022-11-10] MEDS: ATORVASTATIN 40 MG TAB PO SCH (20:59)
[2022-11-10] MEDS: SOTALOL 80 MG TAB PO SCH (20:59)
[2022-11-10 21:11] VITALS: RESP 16
[2022-11-11] MEDS: HYDROmorphone 1 MG/ML 1 ML SYRINGE IVP PRN ×4 (05:28→21:29)
[2022-11-11] MEDS: METOCLOPRAMIDE 5 MG/ML 2 ML VIAL IVP SCH ×5 (05:35→23:08)
[2022-11-11] MEDS: D5-0.45% NACL WITH KCL 20MEQ/L 1,000 ML IV SCH ×3 (05:40→22:48)
[2022-11-11 07:14] LABS: Glucose,Whole Blood 196 mg/dL (70-110)
[2022-11-11] MEDS: LACTATED RINGERS 1,000 ML IV SCH (08:52)
[2022-11-11] MEDS: lisinopriL 10 MG TAB PO SCH (08:54)
[2022-11-11] MEDS: SOTALOL 80 MG TAB PO SCH ×2 (08:54→21:27)
[2022-11-11] MEDS: PANTOPRAZOLE 40 MG TABLET PO SCH (08:55)
[2022-11-11] MEDS: INSULIN ASPART (NovoLOG) 100 UNIT/ML VIAL SQ SCH ×4 (08:55→21:28)
[2022-11-11] MEDS: HYDROcodone/APAP 5-325MG 1 EACH TAB PO PRN (08:58)
[2022-11-11 11:10] LABS: Glucose,Whole Blood 169 mg/dL (70-110)
[2022-11-11] MEDS ORDERED: KETOROLAC 15 MG/ML 1 ML VIAL IVP SCH (12:00)
[2022-11-11] MEDS: KETOROLAC 15 MG/ML 1 ML VIAL IVP SCH ×4 (12:19→23:09)
[2022-11-11] MEDS: SIMETHICONE 40 MG/0.6 ML DROPS 2,000 MG/30 ML BOTTLE PO SCH ×4 (12:49→21:28)
--- NOTE | 2022-11-11 15:49 | P.PN ---
Subjective Progress Note Date: 11/11/22 CHIEF COMPLAINT: GERD HISTORY OF PRESENT ILLNESS: Patient is postop day #1 status post laparoscopic Juana fundoplication. Patient is complaining of pain that radiates up into the shoulders. He denies any nausea or vomiting. He is passing a small amount of flatus. Patient reports days ambulating but per nursing staff is not ambulating very much. Oral intake has been poor. Afebrile. WBC 10.3 Hgb 13.6 platelets 141 sodium 135 potassium 3.8 creatinine 0.64 PHYSICAL EXAM: VITAL SIGNS: Reviewed. GENERAL: Well-developed in no acute distress. HEENT: No sclera icterus. Extraocular movements grossly intact. Moist buccal mucosa. Head is atraumatic, normocephalic. ABDOMEN: Soft. Nondistended. Nontender. NEUROLOGIC: Alert and oriented. Cranial nerves II through XII grossly intact. ASSESSMENT: 1. GERD status post laparoscopic Juana fundoplication PLAN: -Continue Juana clear liquid diet -Simethicone gas drops and Toradol added for pain -Continue IV fluids -Encourage patient to ambulate -Encourage patient to use incentive spirometer -Anticipate discharge tomorrow -DVT prophylaxis subcu heparin and GI prophylaxis Protonix Physician Lead Javascript Engineer note has been reviewed by physician. Signing provider agrees with the documented findings, assessment, and plan of care. Objective - Vital Signs Vital signs: Vital Signs Temp 97.9 F 11/11/22 12:17 Pulse 54 L 11/11/22 12:17 Resp 16 11/11/22 12:17 BP 127/64 11/11/22 12:17 Pulse Ox 96 11/11/22 12:17 FiO2 21 11/10/22 20:03 Intake & Output 11/10/22 11/11/22 11/11/22 18:59 06:59 18:59 Intake Total 1250 590 Output Total 25 Balance 1225 590 Weight 81.1 kg Intake: IV 1250 Oral 590 Output: Estimated Blood Loss 25 Other: # Voids 1 2 - Labs CBC & Chem 7: 11/10/22 16:07 11/10/22 16:07 Labs: Abnormal Lab Results - Last 24 Hours (Table) 11/10/22 11/10/22 11/10/22 Range/Units 16:07 16:07 17:05 Plt Count 141 L (150-450) k/uL Neutrophils # 9.0 H (1.3-7.7) k/uL Lymphocytes # 0.9 L (1.0-4.8) k/uL Sodium 135 L (137-145) mmol/L Creatinine 0.64 L (0.66-1.25) mg/dL Glucose 214 H (74-99) mg/dL POC Glucose (mg/dL) 214 H (70-110) mg/dL 11/10/22 11/11/22 11/11/22 Range/Units 20:18 07:13 11:07 Plt Count (150-450) k/uL Neutrophils # (1.3-7.7) k/uL Lymphocytes # (1.0-4.8) k/uL Sodium (137-145) mmol/L Creatinine (0.66-1.25) mg/dL Glucose (74-99) mg/dL POC Glucose (mg/dL) 242 H 196 H 169 H (70-110) mg/dL
[2022-11-11 17:08] LABS: Glucose,Whole Blood 133 mg/dL (70-110)
[2022-11-11 20:36] LABS: Glucose,Whole Blood 133 mg/dL (70-110)
[2022-11-11] MEDS: ATORVASTATIN 40 MG TAB PO SCH (21:27)
[2022-11-11] MEDS: HEPARIN SODIUM,PORCINE/PF 5,000 UNIT/0.5 ML SYRINGE SQ SCH (21:28)
[2022-11-12 03:15] LABS: Glucose,Whole Blood 156 mg/dL (70-110)
--- NOTE | 2022-11-12 03:48 | P.PN ---
Subjective Progress Note Date: 11/11/22 - History of Present Illness Patient is admitted for an elective Juana's fundoplication patient's oxacillin underwent surgery patient is comparing of pain when he takes deep breath and unable to tolerate much of the liquids at this time. Patient is otherwise clinically doing well. Patient has multiple other medical problems. 11/11/2022 Patient is status post Niesen fundoplication postop day 1 and continues to report extreme abdominal pain and also is reporting continued shortness of breath. Lung sounds are clear on auscultation and oxygen saturation is 96% on room air. Patient reports the pain is radiating up to his left shoulder. Patient reports passing very minimal gas with no bowel movement and is urinating with no difficulties. Patient oral intake is poor and continued on Niesen clear diet. Encouraged increased activity as tolerated and continued his incentive spirometer use at least 10 times every hour while awake. Nursing staff reports he is not getting up much. Patient reports the pain is too intense. Again discussed and reiterated the importance of ambulation postsurgery. Patient is currently afebrile denies chest pain or palpitations. Chest x-ray reviewed from yesterday with no acute cardiopulmonary process. Review of systems: Constitutional: No reports of fatigue, fever, or chills Cardiovascular: No reports of chest pain or palpitations Respiratory: reports of shortness of breath and left upper shoulder pain GI: No reports of nausea, vomiting, or diarrhea, reports not eating much with minimal gas in no bowel movement as of yet : No reports of dysuria or retention Neurovascular: reports of generalized weakness due to intense abdominal pain All medications have been reviewed PHYSICAL EXAMINATION: GENERAL: The patient is alert and oriented x3, not in any acute distress. Well developed, well nourished. HEENT: Pupils are round and equally reacting to light. EOMI. No scleral icterus. No conjunctival pallor. Normocephalic, atraumatic. No pharyngeal erythema. No thyromegaly. CARDIOVASCULAR: S1 and S2 present. No murmurs, rubs, or gallops. PULMONARY: Chest is clear to auscultation, no wheezing or crackles. ABDOMEN: Soft, tender, nondistended, normoactive bowel sounds. No palpable organomegaly. MUSCULOSKELETAL: No joint swelling or deformity. EXTREMITIES: No cyanosis, clubbing, or pedal edema. NEUROLOGICAL: Gross neurological examination did not reveal any focal deficits. SKIN: No rashes. Assessment: -Abdominal pain and pain on deep breathing secondary to Juana's fundoplication. -Type 2 diabetes mellitus for which patient will be continued on sliding scale insulin hold off on home regimen -COPD without any acute exacerbation -Atrial fibrillation paroxysmal presently rate controlled, Eliquis is being held by general surgery, patient need to be started on anticoagulation. -History of DVT in the past -Gastroesophageal reflux disease -Hyperlipidemia -Hypertension -DVT prophylaxis: As per primary service need to be started on anticoagulation as soon as we can Plan: Commend continue current medications and pain management per general surgery. Incentive spirometer ordered encouraged to continue using at least 10 times every hour while awake Recommend monitoring Accu-Cheks before meals and at bedtime and will continue sliding scale for now Patient is maintained on clear liquid diet per surgery and to advance per surgery Encouraged increased activity as tolerated as patient has not been getting up much. Recommend abdominal binder Discussing possible discharge in 24 hours We will continue to follow with general surgery during hospitalization. Thank you kindly for this consultation. The impression and plan of care has been dictated by Tammy Ibarra, Nurse Practitioner as directed. Dr. Noy MD I have performed a history and examination and MDM of this patient, discussed the same with the dictator, and agree with the dictator's assessment and plan as written ,documented as a scribe. Based on total visit time, I have performed more than 50% of the visit. Objective - Vital Signs Vital signs: Vital Signs Temp 98.0 F 11/11/22 07:09 Pulse 83 11/11/22 07:09 Resp 16 11/11/22 07:09 BP 121/49 11/11/22 07:09 Pulse Ox 94 L 11/11/22 07:09 FiO2 21 11/10/22 20:03 Intake & Output 11/10/22 11/11/22 11/11/22 18:59 06:59 18:59 Intake Total 1250 590 Output Total 25 Balance 1225 590 Weight 81.1 kg Intake: IV 1250 Oral 590 Output: Estimated Blood Loss 25 Other: # Voids 1 2 - Labs CBC & Chem 7: 11/10/22 16:07 11/10/22 16:07 Labs: Abnormal Lab Results - Last 24 Hours (Table) 11/10/22 11/10/22 11/10/22 Range/Units 16:07 16:07 17:05 Plt Count 141 L (150-450) k/uL Neutrophils # 9.0 H (1.3-7.7) k/uL Lymphocytes # 0.9 L (1.0-4.8) k/uL Sodium 135 L (137-145) mmol/L Creatinine 0.64 L (0.66-1.25) mg/dL Glucose 214 H (74-99) mg/dL POC Glucose (mg/dL) 214 H (70-110) mg/dL 11/10/22 11/11/22 Range/Units 20:18 07:13 Plt Count (150-450) k/uL Neutrophils # (1.3-7.7) k/uL Lymphocytes # (1.0-4.8) k/uL Sodium (137-145) mmol/L Creatinine (0.66-1.25) mg/dL Glucose (74-99) mg/dL POC Glucose (mg/dL) 242 H 196 H (70-110) mg/dL
[2022-11-12] MEDS: HYDROmorphone 1 MG/ML 1 ML SYRINGE IVP PRN (04:50)
[2022-11-12] MEDS: METOCLOPRAMIDE 5 MG/ML 2 ML VIAL IVP SCH ×2 (05:24→11:19)
[2022-11-12] MEDS: KETOROLAC 15 MG/ML 1 ML VIAL IVP SCH ×2 (05:25→11:19)
[2022-11-12] MEDS: D5-0.45% NACL WITH KCL 20MEQ/L 1,000 ML IV SCH ×2 (05:25→13:30)
[2022-11-12 07:21] LABS: Glucose,Whole Blood 177 mg/dL (70-110)
[2022-11-12] MEDS: INSULIN ASPART (NovoLOG) 100 UNIT/ML VIAL SQ SCH ×2 (07:49→12:12)
[2022-11-12] MEDS: SOTALOL 80 MG TAB PO SCH (07:50)
[2022-11-12] MEDS: HEPARIN SODIUM,PORCINE/PF 5,000 UNIT/0.5 ML SYRINGE SQ SCH (07:50)
[2022-11-12] MEDS: lisinopriL 10 MG TAB PO SCH (07:50)
[2022-11-12] MEDS: PANTOPRAZOLE 40 MG TABLET PO SCH (07:50)
[2022-11-12] MEDS: HYDROcodone/APAP 5-325MG 1 EACH TAB PO PRN (07:51)
[2022-11-12] MEDS: SIMETHICONE 40 MG/0.6 ML DROPS 2,000 MG/30 ML BOTTLE PO SCH ×2 (07:57→13:34)
[2022-11-12 11:18] LABS: Glucose,Whole Blood 140 mg/dL (70-110)
[2022-11-12 12:19] VITALS: BP 124/68; PULSE 49; TEMP 98
--- NOTE | 2022-11-12 13:08 | P.DS ---
Providers Date of admission: 11/11/22 07:23 Expected date of discharge: 11/12/22 Attending physician: Hola Bean Consults: 11/10/22 11:16 Consult Physician Routine Consulting Provider: Slade Arora Reason/Comments: Medical management Do you want consulting provider notified?: Yes Primary care physician: Slade Arora [facility] Course: Discharge diagnosis 1. GERD status post laparoscopic Juana fundoplication Hospital course This is a 62-year-old male with a known history of GERD. He is status post laparoscopic Juana fundoplication. He is tolerating diet. His pain is controlled. He has been up and ambulating. He is having flatus. He is afebrile. He is stable for discharge. Please refer to chart for any further details. Physician Naturopath note has been reviewed by physician. Signing provider agrees with the documented findings, assessment, and plan of care. Patient Condition at Discharge: Stable Plan - Discharge Summary Discharge Rx Participant: No New Discharge Prescriptions: New Simethicone 40 mg/0.6 ml Drops [Mylicon Drops] 40 mg PO QID ml Continue Sotalol [Betapace] 80 mg PO BID Omeprazole 40 mg PO DAILY ALPRAZolam [Xanax] 1 mg PO HS lisinopriL [Prinivil] 10 mg PO DAILY Dulaglutide [Trulicity] 0.75 mg SQ MARTINEZ Atorvastatin [Lipitor] 40 mg PO HS Apixaban [Eliquis] 5 mg PO BID Umeclidinium [place] [Incruse Ellipta] 1 puff INHALATION RT-DAILY PRN PRN Reason: Shortness Of Breath Clotrimazole/Betamethasone Dip [Clotrimazole-Betamethasone Lot] 1 applic TOPICAL BID No Action traMADol HCl [Ultram] 100 mg PO Q6HR PRN #28 tab PRN Reason: Pain Discharge Medication List Omeprazole 40 mg PO DAILY 09/27/14 [History] Sotalol [Betapace] 80 mg PO BID 09/27/14 [History] ALPRAZolam [Xanax] 1 mg PO HS 11/10/17 [History] Apixaban [Eliquis] 5 mg PO BID 05/30/21 [History] Atorvastatin [Lipitor] 40 mg PO HS 05/30/21 [History] Dulaglutide [Trulicity] 0.75 mg SQ MARTINEZ 05/30/21 [History] lisinopriL [Prinivil] 10 mg PO DAILY 05/30/21 [History] Umeclidinium [place] [Incruse Ellipta] 1 puff INHALATION RT-DAILY PRN 07/10/21 [History] traMADol HCl [Ultram] 100 mg PO Q6HR PRN #28 tab 06/18/22 [Rx] Clotrimazole/Betamethasone Dip [Clotrimazole-Betamethasone Lot] 1 applic TOPICAL BID 11/07/22 [History] Simethicone 40 mg/0.6 ml Drops [Mylicon Drops] 40 mg PO QID ml 11/12/22 [Rx] Follow up Appointment(s)/Referral(s): Hola Bean MD [STAFF PHYSICIAN] - 1 Week Patient Instructions/Handouts: *Surgery [facility] - ([place] [facility] [place]) Lap Juana Fundiplication Post-Op Instructions Activity/Diet/Wound Care/Special Instructions: wants flu vaccine at time of discharge No driving while taking [place] No lifting over 10 pounds Shower daily. No soaking or tub baths for 2 weeks Very light activity until you are reevaluated at your follow up appointment with your surgeon Continue full liquid diet for the next 2 weeks Okay to resume Lore ruffin Discharge Disposition: HOME SELF-CARE
--- NOTE | 2022-11-12 15:13 | P.PN ---
Subjective Progress Note Date: 11/12/22 - History of Present Illness Patient is admitted for an elective Juana's fundoplication patient's oxacillin underwent surgery patient is comparing of pain when he takes deep breath and unable to tolerate much of the liquids at this time. Patient is otherwise clinically doing well. Patient has multiple other medical problems. 11/11/2022 Patient is status post Niesen fundoplication postop day 1 and continues to report extreme abdominal pain and also is reporting continued shortness of breath. Lung sounds are clear on auscultation and oxygen saturation is 96% on room air. Patient reports the pain is radiating up to his left shoulder. Patient reports passing very minimal gas with no bowel movement and is urinating with no difficulties. Patient oral intake is poor and continued on Niesen clear diet. Encouraged increased activity as tolerated and continued his incentive spirometer use at least 10 times every hour while awake. Nursing staff reports he is not getting up much. Patient reports the pain is too intense. Again discussed and reiterated the importance of ambulation postsurgery. Patient is currently afebrile denies chest pain or palpitations. Chest x-ray reviewed from yesterday with no acute cardiopulmonary process. 11/12/2022 Patient is seen and evaluated in follow-up this morning doing better up and walking around tolerating diet. Patient encouraged to continue to monitor blood sugars and follow-up with primary care provider. Patient also encouraged to take incentive spirometer home and continue using even in the outpatient setting. Patient to continue with his home medications and has been cleared by general surgery for discharge today. Patient is afebrile denies chest pain or shortness of breath with no reports of nausea or vomiting noted. Review of systems: Constitutional: No reports of fatigue, fever, or chills Cardiovascular: No reports of chest pain or palpitations Respiratory: reports of shortness of breath and left upper shoulder pain GI: No reports of nausea, vomiting, or diarrhea, reports passing gas and eating slightly better : No reports of dysuria or retention Neurovascular: reports of generalized weakness due to intense abdominal pain,reports pain is less intense All medications have been reviewed PHYSICAL EXAMINATION: GENERAL: The patient is alert and oriented x3, not in any acute distress. Well developed, well nourished. HEENT: Pupils are round and equally reacting to light. EOMI. No scleral icterus. No conjunctival pallor. Normocephalic, atraumatic. No pharyngeal erythema. No thyromegaly. CARDIOVASCULAR: S1 and S2 present. No murmurs, rubs, or gallops. PULMONARY: Chest is clear to auscultation, no wheezing or crackles. ABDOMEN: Soft, tender, nondistended, normoactive bowel sounds. No palpable organomegaly. MUSCULOSKELETAL: No joint swelling or deformity. EXTREMITIES: No cyanosis, clubbing, or pedal edema. NEUROLOGICAL: Gross neurological examination did not reveal any focal deficits. SKIN: No rashes. Assessment: -Abdominal pain and pain on deep breathing secondary to Juana's fundoplication. -Type 2 diabetes mellitus -COPD without any acute exacerbation -Atrial fibrillation paroxysmal presently rate controlled, Eliquis is being held by general surgery, patient need to be started on anticoagulation. -History of DVT in the past -Gastroesophageal reflux disease -Hyperlipidemia -Hypertension -DVT prophylaxis: As per primary service need to be started on anticoagulation as soon as we can Plan: Commend continue current medications and pain management per general surgery. Incentive spirometer ordered encouraged to continue using at least 10 times every hour while awake. Encourage the patient is taking the incentive spirometer home and continue using as well Recommend monitorin blood sugars closely outpatient and resume home medications Patient is maintained on clear liquid diet per surgery and to advance per surgery Encouraged increased activity as tolerated Recommend abdominal binderPatient reports is being discharged today Commend follow-up with primary care provider in the outpatient setting We will continue to follow with general surgery during hospitalization. Thank you kindly for this consultation. The impression and plan of care has been dictated by Tammy Ibarra, Nurse Practitioner as directed. Dr. Noy MD I have performed a history and examination and MDM of this patient, discussed the same with the dictator, and agree with the dictator's assessment and plan as written ,documented as a scribe. Based on total visit time, I have performed more than 50% of the visit. Objective - Vital Signs Vital signs: Vital Signs Temp 98.7 F 11/12/22 07:12 Pulse 56 L 11/12/22 07:12 Resp 16 11/12/22 07:12 BP 120/49 11/12/22 07:12 Pulse Ox 94 L 11/12/22 07:47 FiO2 21 11/10/22 20:03 Intake & Output 0111/12/22 11/12/22 18:59 06:59 18:59 Intake Total 1500 2089 Balance 1500 2089 Intake: Intake, IV Titration 1500 1500 Amount D5-0.45% NaCl with KCl 1500 1500 20Meq/l 1,000 ml @ 125 mls/hr IV .Q8H NORBERTO Rx#: [id number] Oral 590 Other: # Voids 2 - Labs CBC & Chem 7: 11/10/22 16:07 11/10/22 16:07 Labs: Abnormal Lab Results - Last 24 Hours (Table) 11/11/22 11/11/22 11/11/22 Range/Units 11:07 17:05 20:34 POC Glucose (mg/dL) 169 H 133 H 133 H (70-110) mg/dL 11/12/22 11/12/22 Range/Units 03:13 07:15 POC Glucose (mg/dL) 156 H 177 H (70-110) mg/dL
== END 2022-11-12 14:23 | disposition home or self-care (01) ==
LOC: OR 07:16 → 5NMEDONC 11:08 → OR 11-11 07:23
PROVIDERS: ADMIT Surgery; ATTEND Surgery
DX: K21.00 Gastro-esophageal reflux disease with esophagitis, without bleeding (principal); G89.18 Other acute postprocedural pain; R10.9 Unspecified abdominal pain; M25.512 Pain in left shoulder; E11.9 Type 2 diabetes mellitus without complications; I10 Essential (primary) hypertension; I48.0 Paroxysmal atrial fibrillation; J43.9 Emphysema, unspecified; E78.5 Hyperlipidemia, unspecified; K64.4 Residual hemorrhoidal skin tags; K22.70 Barrett's esophagus without dysplasia; Z79.01 Long term (current) use of anticoagulants; Z79.85 Long-term (current) use of injectable non-insulin antidiabetic drugs; Z79.899 Other long term (current) drug therapy; Z88.1 Allergy status to other antibiotic agents; Z87.891 Personal history of nicotine dependence; Z86.711 Personal history of pulmonary embolism; Z86.718 Personal history of other venous thrombosis and embolism; Z86.19 Personal history of other infectious and parasitic diseases; Z95.0 Presence of cardiac pacemaker; Z96.653 Presence of artificial knee joint, bilateral; Z98.890 Other specified postprocedural states; Z83.2 Family history of diseases of the blood and blood-forming organs and certain disorders involving the immune mechanism; Z82.49 Family history of ischemic heart disease and other diseases of the circulatory system; Z80.9 Family history of malignant neoplasm, unspecified
CPT/HCPCS: 94640; 94760; 80048; 84484; 85025; 71045; 43280; G0378 ×2; J2250; J0330; J1100; J2710; J2765 ×3; J0690; J2405; J3010; J1170 ×4; J1885 ×3; J2704; J1644 ×2; J2001

== ENCOUNTER 2022-11-14 18:00 | Emergency (ER) | payer MEDICARE ==
[2022-11-14 18:04] VITALS: TEMP 97.5
[2022-11-14] MEDS ORDERED: SODIUM CHLORIDE 0.9% 1,000 ML IV STA (18:14)
[2022-11-14] MEDS ORDERED: TRIAMCINOLONE 0.1% CREAM 80 GM TUBE TOPICAL STA (18:34)
[2022-11-14 19:22] LABS: Basophils % (A) 0 %; Eosinophils # (A) 0.6 k/uL (0-0.7); Eosinophils % (A) 6 %; HCT 30.5 % (39.0-53.0); HGB 10.1 gm/dL (13.0-17.5); Lymphocytes # (A) 1.9 k/uL (1.0-4.8); Lymphocytes % (A) 19 %; MCH 28.5 pg (25.0-35.0); MCHC 33.1 g/dL (31.0-37.0); Mean Platelet Volume 7.8; Monocytes % (A) 10 %; Neutrophils # (A) 6.2 k/uL (1.3-7.7); Neutrophils % (A) 62 %; Platelet Count 179 k/uL (150-450); RBC 3.55 m/uL (4.30-5.90); RDW 13.7 % (11.5-15.5); WBC 10.1 k/uL (3.8-10.6)
[2022-11-14 19:40] LABS: Potassium 4.3 mmol/L (3.5-5.1)
[2022-11-14 19:41] LABS: ALT 21 U/L (4-49); AST 25 U/L (17-59); African American GFR (CKD) >90 (>60 ml/min/1.73 sqM); Alkaline Phosphatase 64 U/L (38-126); Anion Gap 4 mmol/L; Blood Urea Nitrogen 16 mg/dL (9-20); Calcium 8.8 mg/dL (8.4-10.2); Carbon Dioxide 30 mmol/L (22-30); Chloride 101 mmol/L (98-107); Glucose 110 mg/dL (74-99); Lipase 178 U/L (23-300); Non-African American GFR(CKD) >90 (>60 ml/min/1.73 sqM); Sodium 135 mmol/L (137-145); Total Bilirubin 2.1 mg/dL (0.2-1.3); Total Protein 6.5 g/dL (6.3-8.2)
--- NOTE | 2022-11-14 19:58 | ED ---
General Adult HPI - General Chief complaint: Recheck/Abnormal Lab/Rx Stated complaint: Post Op Infection Time Seen by Provider: 11/14/22 18:08 Source: patient Mode of arrival: ambulatory Limitations: no limitations - History of Present Illness Initial comments: Patient is a 62-year-old male who presents to the emergency department for post operative rash. Patient had debbie fundoplication procedure on Thursday with Dr. Bean for GERD. Surgery went well and patient was discharged on 11/12. Patient states prior to discharge he had a rash on his abdomen. Patient states the rash is worsening. It is itchy and it is not painful. States his abdominal pain from the surgery is improving. No fever, chills, nausea, vomiting, diarrhea, constipation - Related Data Home Medications Medication Instructions Recorded Confirmed Omeprazole 40 mg PO DAILY 09/27/14 11/10/22 Sotalol [Betapace] 80 mg PO BID 09/27/14 11/10/22 ALPRAZolam [Xanax] 1 mg PO HS 11/10/17 11/10/22 Apixaban [Eliquis] 5 mg PO BID 05/30/21 11/10/22 Atorvastatin [Lipitor] 40 mg PO HS 05/30/21 11/10/22 Dulaglutide [Trulicity] 0.75 mg SQ MARTINEZ 05/30/21 11/10/22 lisinopriL [Prinivil] 10 mg PO DAILY 05/30/21 11/10/22 Umeclidinium [place] [Incruse 1 puff INHALATION RT-DAILY PRN 07/10/21 11/10/22 Ellipta] Clotrimazole/Betamethasone Dip 1 applic TOPICAL BID 11/07/22 11/10/22 [Clotrimazole-Betamethasone Lot] Previous Rx's Medication Instructions Recorded traMADol HCl [Ultram] 100 mg PO Q6HR PRN #28 tab 06/18/22 Acetaminophen Tab [Tylenol Tab] 650 mg PO Q4H PRN #30 tablet 11/12/22 Ibuprofen [Motrin] 600 mg PO Q8HR PRN #30 tab 11/12/22 Simethicone 40 mg/0.6 ml Drops 40 mg PO QID ml 11/12/22 [Mylicon Drops] hydrOXYzine HCL 10 mg PO BID PRN #10 tab 11/14/22 Allergies Allergy/AdvReac Type Severity Reaction Status Date / Time bacitracin Allergy Unknown Verified 11/14/22 18:03 [From Neosporin ([id number])] bacitracin zinc Allergy Unknown Verified 11/14/22 18:03 [From Neosporin ([id number])] neomycin sulfate Allergy Unknown Verified 11/14/22 18:03 [From Neosporin ([id number])] polymyxin B Allergy Unknown Verified 11/14/22 18:03 [From Neosporin ([id number])] Review of Systems ROS Statement: Those systems with pertinent positive or pertinent negative responses have been documented in the HPI. ROS Other: All systems not noted in ROS Statement are negative. Past Medical History Past Medical History: Atrial Fibrillation, COPD, Diabetes Mellitus, Deep Vein Thrombosis (DVT), GERD/Reflux, Hyperlipidemia, Hypertension, Pulmonary Embolus (PE) Additional Past Medical History / Comment(s): Hx gibson's esophagus. CELLULITIS TO BILAT FEET-NONE AT THIS TIME, Multiple pulmonary embolisms (2014), pacemaker dependent. Emphysema. History of Any Multi-Drug Resistant Organisms: None Reported Past Surgical History: Cardiac Ablation, Hernia Repair, Joint Replacement, Orthopedic Surgery, Pacemaker Additional Past Surgical History / Comment(s): pacemaker(2000), 2006; pacemaker battery replaced 2017-ORIGINAL ONE TURNED OFF. Rt knee replacement, right ankle surgery, colonoscopy, EGD. Fluoroscopy leads 06/04/21, LT TKA 06/18/22, HAS MICRO PACEMAKER AT BOTTOM AT HEART PLACED AT [facility]-08/2021 Past Anesthesia/Blood Transfusion Reactions: No Reported Reaction Type of Cardiac Device: Permanent Pacemaker Device Placement Date:: 08/2021 Past Psychological History: No Psychological Hx Reported Smoking Status: Former smoker Past Alcohol Use History: None Reported Past Drug Use History: None Reported - Past Family History Father Additional Family Medical History / Comment(s): CABG x4 Mother Family Medical History: Cancer, Deep Vein Thrombosis (DVT) Additional Family Medical History / Comment(s): CABG x4, defib pacemaker , blood disorder, General Exam Limitations: no limitations General appearance: alert, in no apparent distress Head exam: Present: atraumatic, normocephalic, normal inspection Eye exam: Present: normal appearance, PERRL, EOMI. Absent: scleral icterus, conjunctival injection, periorbital swelling Respiratory exam: Present: normal lung sounds bilaterally. Absent: respiratory distress, wheezes, rales, rhonchi, stridor Cardiovascular Exam: Present: normal rhythm, bradycardia, normal heart sounds. Absent: systolic murmur, diastolic murmur, rubs, gallop, clicks GI/Abdominal exam: Present: soft (Surgical wound healing nicely. Erythema and blistering around each Steri-Strip. No tenderness with palpation. No warmth), normal bowel sounds. Absent: distended, tenderness, guarding, rebound, rigid Neurological exam: Present: alert, oriented X3, CN II-XII intact Psychiatric exam: Present: normal affect, normal mood Skin exam: Present: warm, dry, intact, normal color. Absent: rash Course Vital Signs 11/14/22 11/14/22 18:01 20:29 Temperature 97.5 F L Pulse Rate 50 L 58 L Respiratory 18 16 Rate Blood Pressure 185/79 159/98 O2 Sat by Pulse 99 100 Oximetry Medical Decision Making - Medical Decision Making Was pt. sent in by a medical professional or institution (, PA, LINUX SERVER ADMINISTRATOR, urgent care, hospital, or penitentiary...) When possible be specific @ -No Did you speak to anyone other than the patient for history (EMS, parent, family, police, friend...)? What history was obtained from this source @ -No Did you review nursing and triage notes (agree or disagree)? Why? @ -I reviewed and agree with nursing and triage notes Were old charts reviewed (outside hosp., previous admission, EMS record, old EKG, old radiological studies, urgent care reports/EKG's, penitentiary records)? Report findings @ -Yes, see HPI Differential Diagnosis (chest pain, altered mental status, abdominal pain women, abdominal pain men, vaginal bleeding, weakness, fever, dyspnea, syncope, headache, dizziness, GI bleed, back pain, seizure, CVA, palpatations, mental health)? @Contact dermatitis, cellulitis, abscess EKG interpreted by me (3pts min.). @ -As above X-rays interpreted by me (1pt min.). @ -None done CT interpreted by me (1pt min.). @ -None done U/S interpreted by me (1pt. min.). @ -None done What testing was considered but not performed or refused? (CT, X-rays, U/S, labs)? Considered CT imaging of the abdomen however patient has improving abdominal pain since surgery What meds were considered but not given or refused? Why? @ -None Did you discuss the management of the patient with other professionals (professionals i.e. , PA, LINUX SERVER ADMINISTRATOR, lab, RT, psych nurse, mental health social worker, environmental lawyer, teacher, bank secrecy act officer, case picker)? Give summary @Yes, discussed case with Dr. Bean who suggested removal of the Steri-Strips and steroid cream Was smoking cessation discussed for >3mins.? @ -No Was critical care preformed (if so, how long)? @ -No Were there social determinants of health that impacted care today? How? ( Homelessness, low income, unemployed, alcoholism, drug addiction, transportation, low edu. Level, literacy, decrease access to med. care, shelter, rehab)? @ -No Was there de-escalation of care discussed even if they declined (Discuss DNR or withdrawal of care, Hospice)? DNR status @ -No What co-morbidities impacted this encounter? (DM, HTN, Smoking, COPD, CAD, Cancer, CVA, ARF, Chemo, Hep., AIDS, mental health diagnosis, sleep apnea, morbid obesity)? @ -None Was patient admitted / discharged? Hospital course, mention meds given and route, prescriptions, significant lab abnormalities, going to OR and other pertinent info. @ -Patient presenting with contact dermatitis. No fever, no leukocytosis, no physical exam findings concerning for infection. Spoke with Dr. Bean. Steri-Strips were removed and steroid cream applied. She'll continue applying this at home. He was discharged with hydroxyzine for itching. Undiagnosed new problem with uncertain prognosis? @ -No Drug Therapy requiring intensive monitoring for toxicity (Heparin, Nitro, Insulin, Cardizem)? @ -No Were any procedures done? @ -No Diagnosis/symptom? @Contact dermatitis Acute, or Chronic, or Acute on Chronic? @Acute Uncomplicated (without systemic symptoms) or Complicated (systemic symptoms)? @Uncomplicated Side effects of treatment? @ -No Exacerbation, Progression, or Severe Exacerbation? @ -No Poses a threat to life or bodily function? How? (Chest pain, [place], [place], pneumonia, PE, COPD, DKA, ARF, appy, cholecystitis, CVA, Diverticulitis, Homicidal, Suicidal, threat to staff... and all critical care pts) @ -No] Dr. Jacobsen is my attending - Lab Data Result diagrams: 11/14/22 19:06 11/14/22 19:06 Lab Results 11/14/22 11/14/22 Range/Units 19:06 19:06 WBC 10.1 (3.8-10.6) k/uL RBC 3.55 L (4.30-5.90) m/uL Hgb 10.1 L D (13.0-17.5) gm/dL Hct 30.5 L (39.0-53.0) % MCV 86.0 (80.0-100.0) fL MCH 28.5 (25.0-35.0) pg MCHC 33.1 (31.0-37.0) g/dL RDW 13.7 (11.5-15.5) % Plt Count 179 (150-450) k/uL MPV 7.8 Neutrophils % 62 % Lymphocytes % 19 % Monocytes % 10 % Eosinophils % 6 % Basophils % 0 % Neutrophils # 6.2 (1.3-7.7) k/uL Lymphocytes # 1.9 (1.0-4.8) k/uL Monocytes # 1.0 (0-1.0) k/uL Eosinophils # 0.6 (0-0.7) k/uL Basophils # 0.0 (0-0.2) k/uL Sodium 135 L (137-145) mmol/L Potassium 4.3 (3.5-5.1) mmol/L Chloride 101 (98-107) mmol/L Carbon Dioxide 30 (22-30) mmol/L Anion Gap 4 mmol/L BUN 16 (9-20) mg/dL Creatinine 0.64 L (0.66-1.25) mg/dL Est GFR (CKD-EPI)AfAm >90 (>60 ml/min/1.73 sqM) Est GFR (CKD-EPI)NonAf >90 (>60 ml/min/1.73 sqM) Glucose 110 H (74-99) mg/dL Calcium 8.8 (8.4-10.2) mg/dL Total Bilirubin 2.1 H (0.2-1.3) mg/dL AST 25 (17-59) U/L ALT 21 (4-49) U/L Alkaline Phosphatase 64 (38-126) U/L Total Protein 6.5 (6.3-8.2) g/dL Albumin 4.0 (3.5-5.0) g/dL Lipase 178 (23-300) U/L Disposition Clinical Impression: Contact dermatitis Disposition: HOME SELF-CARE Condition: Good Instructions (If sedation given, give patient instructions): Contact Dermatitis (ED) Additional Instructions: Apply cream 3 times a day. Take hydroxyzine for any itching. Do not drink alcohol or operate machinery while taking this medication as it can make you sleepy. Follow-up with Dr. Bean in one to 2 days. Return to the emergency department if you experience new, concerning, or worsening symptoms. Prescriptions: hydrOXYzine HCL 10 mg PO BID PRN #10 tab PRN Reason: Allergic Reaction Is patient prescribed a controlled substance at d/c from ED?: No Referrals: Slade Arora MD [Primary Care Provider] - 1-2 days
[2022-11-14 20:30] VITALS: BP 159/98; PULSE 58; RESP 16
== END 2022-11-14 20:30 | disposition home or self-care (01) ==
LOC: EC 18:00
DX: L25.8 Unspecified contact dermatitis due to other agents (principal); I48.91 Unspecified atrial fibrillation; J44.9 Chronic obstructive pulmonary disease, unspecified; E11.9 Type 2 diabetes mellitus without complications; Z86.718 Personal history of other venous thrombosis and embolism; K21.9 Gastro-esophageal reflux disease without esophagitis; E78.5 Hyperlipidemia, unspecified; I10 Essential (primary) hypertension; Z87.891 Personal history of nicotine dependence; Z88.1 Allergy status to other antibiotic agents; Z88.8 Allergy status to other drugs, medicaments and biological substances; Z79.899 Other long term (current) drug therapy; Z79.01 Long term (current) use of anticoagulants
CPT/HCPCS: 36415; 80053; 83690; 85025; 96360; 99284

== ENCOUNTER → 2024-11-14 | Outpatient (CLI) | payer MEDICARE ==
[2024-11-14 13:44] LABS: Influenza A Detected (Not Detectd); Influenza B Not Detected (Not Detectd); RSV Not Detected (Not Detectd)
== END | disposition home or self-care (01) ==
LOC: LABWHC1 11:45
PROVIDERS: ATTEND Family Medicine
DX: B89 Unspecified parasitic disease (principal)
CPT/HCPCS: 87636